=== PATIENT | male | born 1965 | race Caucasian/White ===

== ENCOUNTER 2024-04-26 20:18 | Emergency (ER) | payer MEDICARE, MEDICAID, SELFPAY ==
[2024-04-26] VITALS (8 sets, daily range): BP systolic 134–158; BP diastolic 73–94; PULSE 61–89; RESP 14–99; TEMP 37.7; O2SAT 96–99; BMI 27.1; BMI 25.0
--- NOTE | 2024-04-26 21:10 | XR_ITS ---
Examination: CT brain head without contrast. 2-D sagittal coronal reconstructions Date and time of exam:April 26, 2024 2115 hrs. Indications: Stroke alert, onset focal neurologic deficit today, history large infarct left posterior temporal occipital posterior left parietal lobe on April 08, 2021 CTDI: vol (mGy):55.7 DLP: (mGycm):1202 Technique: Multiple CT axial sections of the brain have been obtained, 5 mm slice thickness. Contrast has not been administered. 2-D sagittal, coronal reconstructions have been obtained Low dose protocols were performed. One or more of the following dose reduction techniques were used; automated exposure control, adjustment of the mA and/or KV according to patient size, use of iterative reconstruction technique. Findings: No significant ventricular enlargement. Large area encephalomalacia posterior left parietal left occipital lobe with ipsilateral ventricular dilatation Acute appearing hemorrhage in the right basal ganglia, 13 x 6 mm with surrounding mild edema Cranial vault intact Fourth ventricle midline Impression: Findings most consistent with 13 x 6 mm acute hemorrhagic infarct in the right basal ganglia
--- NOTE | 2024-04-26 21:10 | XR_ITS ---
Examination: CTA carotids with intravenous contrast CTA brain, head with intravenous contrast. 2-D sagittal, coronal reconstructions. 3-D reconstructions. Exam date and time: April 26, 2024 2119 hrs. Indications: Stroke alert, onset focal neurologic deficit today altered mental status CTDI: vol (mGy) 41.36 DLP: (mGycm) 495 Technique: Multiple CTA axial brain, head carotid images post intravenous contrast injection 75 cc, [id number]. 2-D sagittal, coronal reconstructions. 3-D reconstructions, 3-D post processing including vascular maximum intensity projection images. Low dose protocols were performed. One or more of the following dose reduction techniques were used; automated exposure control, adjustment of the mA and/or KV according to patient size, use of iterative reconstruction technique. 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
--- NOTE | 2024-04-26 21:12 | PC.NURSE ---
stroke consult Case #[id number]
--- NOTE | 2024-04-26 21:13 | EDNOTE_ITS ---
ED General RME/HPI General Chief complaint: Altered Mental Status Stated complaint: AMS Time Seen by Provider: 04/26/24 21:10 Arrival date/time: 04/26/24 20:18 RME / HPI RME / HPI narrative: 58-year-old male patient with significant history of hypertension, CVA in the past, was brought in by EMS for altered mental status. 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 On my initial evaluation patient is none verbal. He was able to involuntarily move the right upper and lower extremity however the left upper and lower extremity are moving less.. Information was taken from her sister who knows the patient well. The sister told me that patient is not having any motor deficit however patient had sometimes having trouble expressing words after the stroke last 2020. Currently patient is GCS 13 Related Data Previous Rx's ?Medication ?Instructions ?Recorded atorvastatin 40 mg tablet 80 mg (2 x 40 mg) PO QPM 1 day #2 04/08/21 tabs Allergies Allergy/AdvReac Type Severity Reaction Status Date / Time No Known Allergies Allergy Unverified 03/28/21 16:44 Review of Systems Review of Systems ROS Unobtainable: unobtainable due to mental status and unobtainable due to medical condition ED Exam Narrative Physical exam: VITAL SIGNS: Reviewed. GENERAL APPEARANCE: Obtunded, nonverbal not following commands, no acute distress, HEAD AND FACE: Non-traumatic. ENT: PERRL, right gaze deviation, pink conjunctivitis, eyelid no trauma, NECK: Supple, nontender, no nuchal rigidity. CHEST: No tenderness, no crepitus, no paradoxical movement, no retractions. LUNGS: Clear, well ventilated, symmetric, no rales, no wheezing, no ronchi, no stridor, good breath sounds bilaterally. HEART: Regular rate, regular rhythm, no murmur, no gallops. ABDOMEN: Soft, positive bowel sounds, nondistended, no guarding, nontender, no rebound, no masses, RECTAL: Deferred. GENITAL: Deferred. NEUROLOGICAL: Involuntary gross motor movement right upper and lower extremity., Minimal involuntary movement of the left upper and lower extremity MUSCULOSKELETAL: low back nontender, full range of motion. SKIN: Color pink, dry, no rash, no lacerations, no abrasions, no contusions. LYMPHATICS: Deferred. Course Quality Measures none Orders Category Date Time Status Bedside Blood Glucose NOW Care 04/26/24 21:10 Completed Pocket Maker NOW Care 04/26/24 21:10 Completed Continuous Pulse Oximetry NOW Care 04/26/24 21:10 Completed EKG (ED ONLY) *Do not use* NOW Care 04/26/24 21:10 Completed In and Out Catheter NEEDED Care 04/26/24 21:10 Completed Insert IV NOW Care 04/26/24 21:10 Completed NIH Stroke Scale now Care 04/26/24 21:10 Completed NPO NOW Care 04/26/24 21:10 Completed Nurse Swallow Screen x1 Care 04/26/24 21:10 Completed Consult to Neurology / Tele-Neurology Routine Cons 04/26/24 21:[address] angio stroke protocol Stat Exams 04/26/24 21:[address] stroke protocol Stat Exams 04/26/24 21:10 Completed EKG (ED Only) Stat Exams 04/26/24 21:10 Ordered Alcohol, Blood Medical Stat Lab 04/26/24 21:46 Completed CBC Stat Lab 04/26/24 21:46 Completed Comprehensive Metabolic Panel Stat Lab 04/26/24 21:46 Completed Drug Screen,Urine Stat Lab 04/26/24 21:54 Completed Magnesium Stat Lab 04/26/24 21:46 Completed Partial Thromboplastin Time Stat Lab 04/26/24 21:46 Completed Prothrombin Time with INR Stat Lab 04/26/24 21:46 Completed Troponin I Stat Lab 04/26/24 21:46 Completed Urinalysis Stat Lab 04/26/24 21:48 Completed Urine Culture Stat Lab 04/26/24 21:54 Received Ondansetron Inj [Zofran Inj] Med 04/26/24 21:10 Discontinued 4 mg IV Q4HR PRN Oxygen Delivery NOW RT 04/26/24 21:10 Completed Vital Signs Vital signs: Vital Signs Temperature 99.8 F 04/26/24 20:30 Pulse Rate 63 04/26/24 20:30 Respiratory Rate 19 04/26/24 20:30 Blood Pressure 158/94 H 04/26/24 20:30 Pulse Oximetry (%) 96 04/26/24 20:30 Oxygen Delivery Method Room Air 04/26/24 20:30 [facility] Patient data External records reviewed:: None Clinical information provided by:: family Social determinants that could affect healthcare access:: none Patient has the following chronic illnesses:: History of CVA, hypertension How is presenting disease/condition affected by chronic disease/condition?: e xacerbated by Evaluation data The following diagnostics were reviewed and interpreted by me:: lab results and radiology exam(s) Lab and/or radiology exams considered but not ordered:: None Interpretation Summary: Pending results Medications Medications considered but not ordered:: None Medication administrations:: Medication Administration History Discontinued Medications Ondansetron HCl (Ondansetron Inj 2 Mg/Ml Inj 2 Ml) 4 mg IV Q4HR PRN PRN Reason: NAUSEA OR VOMITING Stop: 05/26/24 21:09 Zofran Consultations Consultation(s) initiated? (list below): No Diagnosis Differential Diagnosis ED Complaint MDM: CVA, hemorrhagic stroke, altered mental status Most likely diagnosis given after review of the tests above:: Intracranial bleed Admission Indicated Admission indicated?: not indicated (Patient will be transferred for intracranial bleed) Explain why admission is indicated or not indicated:: Transferred Admission Request Was there a request for admission?: No Disposition Plan Disposition Plan: Transfer Medical Decision Making [facility] Narrative MDM Narrative: 58-year-old male patient with significant history of hypertension, CVA in the past, was brought in by EMS for altered mental status. 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 On my initial evaluation patient is none verbal. He was able to involuntarily move the right upper and lower extremity however the left upper and lower extremity are moving less.. Information was taken from her sister who knows the patient well. The sister told me that patient is not having any motor deficit however patient had sometimes having trouble expressing words after the stroke last 2020. Stroke alert was initiated at 0 Spoke with teleneurologist who recommends transfer for acute hemorrhagic stroke. Care transferred to Dr. Quezada 11:30 PM for final disposition. Differential Diagnosis Differential Diagnosis: CVA, hemorrhagic stroke, altered mental status Lab Data 04/26/24 21:46 04/26/24 21:46 Labs: Lab Results 04/26/24 04/26/24 04/26/24 Range/Units 21:46 21:48 21:54 WBC 11.1 H (3.8-10.6) Thou/mm3 RBC 4.92 (4.50-5.90) Miln/mm3 Hgb 16.3 H (13.5-16.0) g/dL Hct 46.8 (41.0-53.0) % MCV 95 (80-100) fL MCH 33.1 (25.0-35.0) pg MCHC 34.8 (31.0-37.0) g/dl RDW Std Deviation 42.5 (35.1-43.9) fL Plt Count 238 (140-440) Thou/mm3 Neut % (Auto) 88 H (37-80) % Lymph % (Auto) 6 L (10-50) % Antelope % (Auto) 5 (0-12) % Eos % (Auto) 0 (0-10) % Baso % (Auto) 0 (0-2.5) % Neut # (Auto) 9.7 H (1.8-7.7) Thou/mm3 Lymph # (Auto) 0.7 L (1.0-4.8) Thou/mm3 Antelope # (Auto) 0.6 (0.0-0.8) Thou/mm3 Eos # (Auto) 0.0 (0.0-0.5) Thou/mm3 Baso # (Auto) 0.0 (0.0-0.2) Thou/mm3 Immature Gran # (Auto) 0.03 H (0.00-0.00) Thou/mm3 Absolute Nucleated RBC 0.00 (0.00-0.00) Thou/mm3 Immature Gran % 0 (0-0) % Nucleated RBC % 0 (0) /100 WBC PT 11.8 (9.0-12.2) Seconds INR 1.1 (0.9-1.3) APTT 25.9 (22.0-36.0) Seconds Sodium 138 (136-145) mMol/L Potassium 4.7 (3.4-5.1) mMol/L Chloride 105 (98-107) mMol/L Carbon Dioxide 22.2 (20.0-31.0) mMol/L Anion Gap 11 (7-16) BUN 11 (9-23) mg/dL Creatinine 0.8 (0.6-1.3) mg/dL Estim Creat Clear Calc 115.1 (>60) mL/min eGFR > 60 (60 - ) See Note BUN/Creatinine Ratio 14 (12-20) Ratio Glucose 108 H (74-106) mg/dL Calculated Osmolality 276 (275-295) Calcium 9.7 (8.3-10.6) mg/dL Corrected Calcium 9.7 (8.5-10.1) mg/dL Magnesium 1.8 (1.6-2.6) mg/dL Total Bilirubin 1.6 H (0.3-1.2) mg/dL AST 30 (0-34) U/L ALT 25 (10-49) U/L Alkaline Phosphatase 67 (46-116) U/L Troponin I < 0.020 (0.0-0.045) ng/mL Total Protein 7.6 (5.7-8.2) gm/dL Albumin 4.8 (3.5-5.0) gm/dL Globulin 2.8 (2.3-3.5) gm/dL Albumin/Globulin Ratio 1.7 (1.2-2.2) Ur Collection Type Clean Catch Urine Color Yellow (Lt Yel-Yel) Urine Clarity Clear (Clear/Hazy) Urine pH 5.5 (5.0-7.0) Ur Specific Burton 1.036 H (1.001-1.035) Urine Protein Trace (Neg - Trace) Urine Glucose (UA) Negative (Negative) Urine Ketones 1+ A (Negative) Urine Blood Trace (Negative) Urine Nitrite Negative (Negative) Urine Bilirubin Negative (Negative) Urine Urobilinogen (Auto) Negative (0.0-1.0) mg/dL Ur Leukocyte Esterase Negative (Negative) Urine RBC 2 (0-3) /hpf Urine WBC 2 (0-5) /hpf Ur Squamous Epith Cells 0 (0-5) /hpf Urine Bacteria None (None) Urine Opiates Screen Negative (Negative) Urine Fentanyl Screen Negative (Negative) Ur Barbiturates Screen Negative (Negative) U Amphetamin/Meth Scrn Negative (Negative) U Benzodiazepines Scrn Negative (Negative) U Cocaine Metab Screen Negative (Negative) U Marijuana (THC) Screen Positive A (Negative) Ethyl Alcohol < 3.0 (0-10.0) mg/dL Discharge Plan Plan Patient Disposition: [facility] Care [facility] Facility Pt Being Transferred to: [facility] Service Needed for Transfer: Neurology Patient condition on transfer: Stable Prescriptions/Referrals Prescriptions/Med Rec: No Action atorvastatin 40 mg Tablet 80 mg PO QPM 1 Days Qty: 2 0RF Referrals: No Primary/Family,Physician [Primary Care Provider] - In 1 week Problem List Clinical Impression: Basal ganglia hemorrhage Patient/Caregiver Discharge Instructions Print Language: Azerbaijani Stand Alone Forms: [facility] Award Info., Patient Portal Info Letter
--- NOTE | 2024-04-26 21:49 | PD.TNEURO ---
Tele Neuro Consultation Consultation Date 04/26/24 Most Recent Vital Signs Last Vital Signs Temp 99.8 F 04/26/24 20:30 Pulse 63 04/26/24 20:30 Resp 19 04/26/24 20:30 BP 158/94 H 04/26/24 20:30 Pulse Ox 96 04/26/24 20:30 O2 Del Method Room Air 04/26/24 20:30 Consultation Narrative [facility] Patient Name:???jasmyn henao Date of :???1965 Identification Number:??? Date of Service:???04/26/2024 21:12:33 Diagnosis:?G93.41 - Encephalopathy Metabolic ?R40.0 - Somnolence ?M62.81 - Generalized Muscle Weakness Impression: altered mental status with right gaze deviation; small right lentiform nucleus bleed that is well circumscribed and somewhat odd appearing; Plan: keep BP less than 140/90s but avoid hypotension given chronic left ICA occlusion. Will need dawjm-jtxkpecjr-qfwmjdwrvk workup, including U/A, UCx, BCx, UDS, ETOH level. Will need an MRI brain WITH AND WITHOUT CONTRAST when able, echo, continue to monitor on telemetry, labs for risk factor stratification (lipid panel, HbA1c, TSH with free T4), PT/OT/speech eval. seizure precautions including NO DRIVING for state minimum time frame with reporting to DMV as per state mandate. CIWA protocol. may benefit from high dose IV thiamine given unclear alcohol use history. If mental status does not return to baseline or if mental status fluctuates, would recommend EEG. All questions answered to the best of my ability. Plan discussed with ED provider, who is in agreement with plan. Recommendation: Laboratory Studies:? INR/PT ? aPTT? CBC Medications:? Hold?antiplatelet?therapy/NSAIDS/Anticoagulation Nursing Recommendations: ? Telemetry, IV Fluids?Avoid dextrose containing fluids, Maintain euglycemia ? Head of bed 30 degrees ? Neuro checks q1-2?hrs?during ICU stay ? keep BP less than 140/90's with goal of 130/80s Consultations: ? Recommend Speech therapy if failed dysphagia screen ? Physical therapy/Occupational therapy DVT Prophylaxis: ? SCDs Disposition: ? Neurology will Follow Additional Recommendation: MRI brain WITH AND WITHOUT CONTRAST Metrics: Last Known Well: 04/26/2024 07:30:00 Dispatch Time: 04/26/2024 21:12:33 Arrival Time: 04/26/2024 20:18:00 Initial Response Time: 04/26/2024 21:13:49Symptoms: altered mental status, found down. Initial patient interaction: 04/26/2024 21:30:00 NIHSS Assessment Completed: 04/26/2024 21:35:34Patient is not a candidate for Thrombolytic. Thrombolytic Medical Decision: 04/26/2024 21:33:19Patient was not deemed candidate for Thrombolytic because of following reasons: LKW outside 4.5 hr window. . Current intracranial hemorrhage . Imaging was personally reviewed. CTH shows a large area of encephalomalacia in the left nsrmswuw-vsvjkcke-xyqiicawh lobe and a hyperdensity in the right lentiform nucleus, concern for hemorrhage. CTA head/neck shows scattered atherosclerotic plaques with chronic occlusion of the cervical left ICA and reconstitutes at the ICA terminus. This was seen in 2020. Primary Provider Notified of Diagnostic Impression and Management Plan on: 04/26/2024 21:41:22 History of Present Illness:Patient is a 58 year old Male. Patient was brought by EMS for symptoms of altered mental status, found down. 58 yo man with ah history of prior left hemispheric ischemic stroke (djqrnrvz-vitpxvyq-gxedjuvhm infarcts) in the setting of left ICA occlusion with some residual cognitive/speech deficits but no weakness, hypertension, hyperlipidemia, coronary artery disease s/p stent (2016), left ventricular thrombus, who presents via EMS after being found down with altered mental status and ?right arm weakness. sister is present at bedside and provide history of present illness but she is estranged and hasn't spoken or seen him in 1.5 years so history is limited. LKW 0730 am. he was supposed to grape picker his daughter after school but never showed up. when daughter got a ride home, she found him down on the ground and confused appearing. he was unable to ambulate. of note, there was drug paraphernalia near him with a pipe near bed with light. he has a history of alcohol use disorder (unclear if in remission). ? Past Medical History: ?Hypertension ?Hyperlipidemia ?Coronary Artery Disease ?Stroke unable to obtain due to:?? Patient Is Obtunded/ Comatose Medications: Anticoagulant use:??Unknown Antiplatelet use:?Unknown Reviewed EMR for current medications Allergies:? Reviewed Allergies Unable To Obtain Due To:?Patient Is Obtunded/ Comatose Social History: Smoking: Yes Unable To Obtain Due To Patient Status :?Patient Is Obtunded/ Comatose Family History: Family History Cannot Be Obtained Because:Patient Is Obtunded/ Comatose ROS :?ROS Cannot Be Obtained Because:? Patient Is Obtunded/ Comatose Past Surgical History: Past Surgical History Cannot Be Obtained Because: Patient Is Obtunded/ Comatose There Is No Surgical History Contributory To Today?s Visit There Is Surgical History of:? cardiac stent to the left anterior descending [id number] ? Examination: BP(158/94),?Pulse(63),?Blood Glucose(137) 1A: Level of Consciousness - Requires repeated stimulation to arouse?+ 2 1B: Ask Month and Age - Could Not Answer Either Question Correctly?+ 2 1C: Blink Eyes & Squeeze Hands - Performs 0 Tasks?+ 2 2: Test Horizontal Extraocular Movements - Forced Gaze Palsy: Cannot Be Overcome?+ 2 3: Test Visual Dyson - Bilateral Hemianopia?+ 3 4: Test Facial Palsy (Use Grimace if Obtunded) - Normal symmetry?+ 0 5A: Test Left Arm Motor Drift - No Effort Against [place]?+ 3 5B: Test Right Arm Motor Drift - No Effort Against [place]?+ 3 6A: Test Left Leg Motor Drift - No Effort Against [place]?+ 3 6B: Test Right Leg Motor Drift - No Effort Against [place]?+ 3 7: Test Limb Ataxia (FNF/Heel-Robledo) - Does Not Understand?+ 0 8: Test Sensation - Mild-Moderate Loss: Can Sense Being Touched?+ 1 9: Test Language/Aphasia - Severe Aphasia: Fragmentary Expression, Inference Needed, Cannot Identify Materials?+ 2 10: Test Dysarthria - Mute/Anarthric?+ 2 11: Test Extinction/Inattention - No abnormality?+ 0 NIHSS Score:?28 ICH Score: 1 NIHSS Text :?obtunded. unable to answer orientation questions or follow commands. actively resists eye opening. right gaze deviation. no blink to threat bilaterally. moving all four extremities equally and spontaneously. grimaces and says ow with flexion in response to proximal noxious stimulation in all four extremities. GCS 11 (E3 V4 M4). David Coma Score:5-12 (+1) Age >= 80:No (0) ICH volume >= 30mL:No (0) Intraventricular hemorrhage:No (0) Infratentorial origin of hemorrhage:No (0) Pre-Morbid Modified England Scale:2 Points = Slight disability; unable to carry out all previous activities, but able to look after own affairs without assistance This consult was conducted in real time using interactive audio and video technology. Patient was informed of the technology being used for this visit and agreed to proceed. Patient located in hospital and provider located at home/office setting. Due to the immediate potential for life-threatening deterioration due to underlying acute neurologic illness, I spent 36 minutes providing critical care. This time includes time for face to face visit via telemedicine, review of medical records, imaging studies and discussion of findings with providers, the patient and/or family. Dr Geoffrey Kruger [facility] For Inpatient follow-up with [facility] physician please call [facility] at . As we are not an outpatient service for any post hospital discharge needs please contact the hospital for assistance. If you have any questions for the [facility] physicians or need to reconsult for clinical or diagnostic changes please contact us via [facility] at .
[2024-04-26 22:05] LABS: Basophils % (Auto) 0 % (0-2.5); Eosinophils % (Auto) 0 % (0-10); Hematocrit 46.8 % (41.0-53.0); Hemoglobin 16.3 g/dL (13.5-16.0); Immature Granulocytes % (Auto) 0 % (0-0); Immature Granulocytes Auto 0.03 Thou/mm3 (0.00-0.00); Lymphocytes # (Auto) 0.7 Thou/mm3 (1.0-4.8); Lymphocytes % (Auto) 6 % (10-50); Mean Corpuscular HGB Conc 34.8 g/dl (31.0-37.0); Mean Corpuscular Hemoglobin 33.1 pg (25.0-35.0); Mean Corpuscular Volume 95 fL (80-100); Monocytes # (Auto) 0.6 Thou/mm3 (0.0-0.8); Monocytes % (Auto) 5 % (0-12); Neutrophils # (Auto) 9.7 Thou/mm3 (1.8-7.7); Neutrophils % (Auto) 88 % (37-80); Nucleated Red Blood Cell % 0 /100 WBC (0); Platelet Count 238 Thou/mm3 (140-440); RDW Standard Deviation 42.5 fL (35.1-43.9); Red Blood Count 4.92 Miln/mm3 (4.50-5.90); White Blood Count 11.1 Thou/mm3 (3.8-10.6)
[2024-04-26 22:06] LABS: Collection Type, Urine Clean Catch; Squamous Epithelial Cell,Urine 0 /hpf (0-5)
[2024-04-26 22:12] LABS: Alanine Aminotransferase 25 U/L (10-49); Albumin, Serum 4.8 gm/dL (3.5-5.0); Albumin/Globulin Ratio 1.7 (1.2-2.2); Alkaline Phosphatase 67 U/L (46-116); Anion Gap 11 (7-16); Aspartate Amino Transferase 30 U/L (0-34); BUN/Creatinine Ratio 14 Ratio (12-20); Bilirubin,Total 1.6 mg/dL (0.3-1.2); Blood Urea Nitrogen 11 mg/dL (9-23); Calcium 9.7 mg/dL (8.3-10.6); Calcium (Corrected) 9.7 mg/dL (8.5-10.1); Carbon Dioxide 22.2 mMol/L (20.0-31.0); Chloride 105 mMol/L (98-107); Creatinine (Component) 0.8 mg/dL (0.6-1.3); Estimated Creatinine Clearance 115.1 mL/min (>60); Globulin 2.8 gm/dL (2.3-3.5); Glucose 108 mg/dL (74-106); Magnesium 1.8 mg/dL (1.6-2.6); Osmolality,Calculated 276 (275-295); Potassium 4.7 mMol/L (3.4-5.1); Sodium 138 mMol/L (136-145); Total Protein 7.6 gm/dL (5.7-8.2); Troponin I < 0.020 ng/mL (0.0-0.045); eGFR > 60 See Note
[2024-04-26 22:14] LABS: Bilirubin,Urine Negative (Negative); Blood,Urine Trace (Negative); Clarity,Urine Clear (Clear/Hazy); Color,Urine Yellow (Lt Yel-Yel); Glucose, Urine Negative (Negative); Ketones,Urine 1+ (Negative); Leukocyte Esterase,Urine Negative (Negative); Nitrite,Urine Negative (Negative); PH,Urine 5.5 (5.0-7.0); Protein,Urine Trace (Neg - Trace); RBC,Urine 2 /hpf (0-3); Specific Gravity,Urine 1.036 (1.001-1.035); Urobilinogen,Urine Negative mg/dL (0.0-1.0); WBC,Urine 2 /hpf (0-5)
[2024-04-26 22:14] LABS: INR 1.1 (0.9-1.3); Partial Thromboplastin Time 25.9 Seconds (22.0-36.0); Prothrombin Time 11.8 Seconds (9.0-12.2)
[2024-04-26 22:31] LABS: Amphetamine/Methamp Scrn,U Negative (Negative); Barbiturate Screen,Urine Negative (Negative); Benzodiazepines Screen,Urine Negative (Negative); Benzoylecgonine Screen, Ur Negative (Negative); Fentanyl Screen,Urine Negative (Negative); Opiate Screen,Urine Negative (Negative); THC Screen,Urine Positive (Negative)
[2024-04-26 22:31] LABS: Alcohol, Blood Medical < 3.0 mg/dL (0-10.0)
--- NOTE | 2024-04-26 23:04 | PC.NURSE ---
[facility] FAXED PAPERWORK FOR POSSIBLE TRANSFER
--- NOTE | 2024-04-26 23:27 | PC.NURSE ---
[facility] FAXED PAPERWORK AND IMAGES PUSHED FOR POSSIBLE TRANSFER
[2024-04-27] VITALS: BP 146/97; PULSE 85; RESP 15; O2SAT 98
--- NOTE | 2024-04-27 00:03 | PD.EDADDENDU ---
Emergency Room Addendum <Pam Linn - Last Filed: 04/27/24 01:23> Addendum Narrative: 2300: Care assumed from Marsha Jarrett NP. Past medical, surgical, social and family history reviewed. Vitals and home medications reviewed. Results and treatment plan discussed. I will assume the care of the patient at this time and will follow the patient, pending transfer. Please refer to the emergency department record for history and examination from initial visit. The patient with a blood pressure of 135/73. Pulse of 65. Respirations 27 without accessory muscle use, 98% on room air. Repeat temp is 99. PE: Patient lying in the bed in a gown, intermittent yawning. GCS 13 (E: 3 V: 5 (only states his name is Mode ) M: 5 Response to stimuli. He opens his eyes and appears to be looking towards his right. When I stand on his left he continues to look at his right. Moving bilateral LE spontaneously and appears equal. Will start to swing both arms. Cranio-facial features are symmetric, PERRL, eyes deviated to the right when I on standing on the left side. Unable to test sensation. Unable to test cerebellar Patient has periods of moving his left upper extremity with then. Of not wanting to move. 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 1-right basal ganglia bleed 2_? Possible nonfocal seizure secondary to the basal ganglia bleed. Keppra dose is given IV. 0005: Spoke with [facility]'s transfer center. Awaiting callback on whether or not they accept the patient for transfer. Review of the nursing notes report that the patient commonly will sleep on the floor. Per EMS the patient was found sleeping next to his bed with a pillow and blanket by his side. 0108: Spoke with Dr. Carlisle from [facility] transfer center. States the patient does not need IR intervention/neurosurgical transfer at this time. Needs stroke follow-up. 0115: Spoke with Dr. Dennis from neurology at [facility] and accepts the patient for ED-ED transfer. Critical Care Time: 45 minutes The high probability of sudden, clinically significant deterioration in the patient?s condition required the highest level of my preparedness to intervene urgently. The services I provided to this patient were to treat and/or prevent clinically significant deterioration. Services included the following: chart data review, reviewing nursing notes and/or old charts, documentation time, interventional sale consultant collaboration regarding findings and treatment options, medication orders and management, direct patient care, vital sign assessments and ordering, interpreting and reviewing diagnostic studies and lab tests. Aggregate critical care time includes only time during which I was engaged in work directly related to the patient?s care, as described above, whether at bedside or elsewhere in the Emergency Department. It did not include time spent performing other reported procedures or the services of residents, students, nurses or physician assistants. <Cyndy Quezada MD - Last Filed: 04/27/24 01:59> Addendum Narrative: 2300: Care assumed from Marsha Jarrett NP. Past medical, surgical, social and family history reviewed. Vitals and home medications reviewed. Results and treatment plan discussed. I will assume the care of the patient at this time and will follow the patient. The patient with a blood pressure of 135/73. Pulse of 65. Respirations 27 without accessory muscle use, 98% on room air. Repeat temp is 99. PE: Patient lying in the bed in a gown, intermittent yawning. GCS 13 (E: 3 V: 5 (only states his name is Mode ) M: 5 Response to stimuli. He opens his eyes and appears to be looking towards his right. When I stand on his left he continues to look at his right. Moving bilateral LE spontaneously and appears equal. Will start to swing both arms. Cranio-facial features are symmetric, PERRL, eyes deviated to the right when I on standing on the left side. Unable to test sensation. Unable to test cerebellar Patient has periods of moving his left upper extremity with then. Of not wanting to move. 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 1-right basal ganglia bleed 2_? Possible nonfocal seizure secondary to the basal ganglia bleed. Keppra dose is given IV. 0005: [facility] transfer center called and pending callback. Review of the nursing notes report that the patient commonly will sleep on the floor. Per EMS the patient was found sleeping next to his bed with a pillow and blanket by his side. Please refer to the emergency department record for history and examination from initial visit. Spoke with [facility]'s transfer center. Awaiting callback on whether or not they accept the patient for transfer. 04/27/24 12:07 am Pam Pires
[2024-04-27 00:22] VITALS: BP 139/84; PULSE 89; RESP 18; TEMP 37.5; O2SAT 96
--- NOTE | 2024-04-27 01:30 | PC.NURSE ---
[facility] ACCEPTED PATIENT, ER TO ER DR PINA [phone]
[2024-04-27 01:43] VITALS: BP 131/88; PULSE 88; RESP 16; O2SAT 99
[2024-04-27 02:12] VITALS: BP 146/76; PULSE 80; RESP 17; O2SAT 98
--- NOTE | 2024-04-27 02:33 | PC.NURSE ---
REPORT CALLED TO ALBIN GRIFFITHS AT [facility]. ALL QUESTIONS ASKED AND ANSWERED.
== END 2024-04-27 02:48 | disposition short-term general hospital (02) ==
PROVIDERS: Nurse Practitioner Family; Emergency Provider Emergency Medicine
DX: I61.0 Nontraumatic intracerebral hemorrhage in hemisphere, subcortical (principal); I10 Essential (primary) hypertension; E78.5 Hyperlipidemia, unspecified; I25.10 Atherosclerotic heart disease of native coronary artery without angina pectoris
CPT/HCPCS: 36415; 70450; 70496; 70498; 80053; 80307; 80320; 81001; 83735; 84484; 85025; 85610; 85730; 87086; 93005; 99291; A4649; Q9967; G0480

== ENCOUNTER 2024-05-27 13:52 | Inpatient (IN) | payer MEDICARE, MEDICAID, SELFPAY ==
[2024-05-27 13:59] VITALS: BP 137/98; PULSE 80; RESP 19; TEMP 36.8; O2SAT 97
[2024-05-27 14:50] VITALS: PULSE 84; O2SAT 99
--- NOTE | 2024-05-27 14:58 | EDNOTE_ITS ---
Altered Mental Status RME/HPI General Chief Complaint: Altered Mental Status Stated Complaint: AMS Time Seen by Provider: 05/27/24 14:50 Arrival date/time: 05/27/24 13:52 RME / HPI RME / HPI narrative: 58 year old male with history of CVA in 2020 and on 04/26/2024 was evaluated here diagnosed with basal ganglia hemorrhage and transferred to [facility] (discharged 3 days ago) presents to the ED BIBA from SNF for evaluation of altered mental status. Per mother, since arriving to [facility] 3 days ago the patient is altered however worse today. States today patient repetitively asked about peanut butter. Also reported patient was cursing, using profanities, and not making any sense. Patients mother additionally reported since arriving to the senior care, the patient has had two falls out of bed, last fall was 2 days ago. No fevers or other illness reported. No vomiting, diarrhea, or urinary complaints. Related Data Previous Rx's ?Medication ?Instructions ?Recorded atorvastatin 40 mg tablet 80 mg (2 x 40 mg) PO QPM 1 day #2 04/08/21 tabs Allergies Allergy/AdvReac Type Severity Reaction Status Date / Time No Known Allergies Allergy Unverified 03/28/21 16:44 Review of Systems Review of Systems ROS Unobtainable: unobtainable due to mental status Past Medical History Past Medical History NEUROLOGIC: Positive Cerebrovascular Accident (CVA at present) CARDIAC: Positive Cardiac Disorders ([place]) and Hypercholesterolemia Surgical History SURGICAL: Positive Coronary Stent Social History SMOKING STATUS: Never smoker SECOND HAND EXPOSURE: No ED Exam Narrative Physical exam: GENERAL APPEARANCE: Well hydrated, well nourished, in no acute distress. VITALS: All vitals were reviewed and the pulse ox is 97% on room air which is normal according to my interpretation. HEENT: Normocephalic, atramatic, EOMI, EACs are patent. There is no bulge or retraction. Throat without erythema or exudate. Moist oromucosa. No jaundice NECK: Supple, no JVD or bruits. CARDIOVASCULAR: Heart regular without S3-S4 or murmur. No rubs or gallops. LUNGS/CHEST: Clear to auscultation bilaterally. No rales, rhonchi, or wheezing. Normal inspection. ABDOMEN: Soft, nontender, with normal bowel sounds. No pulsatile masses. No rebound, rigidity, or guarding. No incarcerated hernia. Normal inspection and palpation. EXTREMITIES: No edema, clubbing, or cyanosis. Intact CSM SKIN: Warm and dry without rashes. Normal inspection. MUSCULOSKELETAL: No gross deformity, full ROM all extremities NEURO: Alert, dysphasia noted. Noticeable weakness in the left leg, both arms equal strength. Cranial nerves II through XII grossly intact. PSYCHIATRIC: Normal mood and affect. No psychosis Course Quality Measures none Orders Category Date Time Status EKG (ED ONLY) *Do not use* NOW Care 05/27/24 15:22 Completed Saline [Insert IV] NOW Care 05/27/24 15:[address] head/brain wo con Stat Exams 05/27/24 15:22 Completed EKG (ED Only) Stat Exams 05/27/24 15:22 Draft CBC Stat Lab 05/27/24 15:32 Completed CMP [Comprehensive Metabolic Panel] Stat Lab 05/27/24 15:32 Completed Drug Screen,Urine Stat Lab 05/27/24 15:24 Ordered PT [Prothrombin Time with INR] Stat Lab 05/27/24 15:32 Completed PTT [Partial Thromboplastin Time] Stat Lab 05/27/24 15:32 Completed Vital Signs Vital signs: Vital Signs Temperature 98.3 F 05/27/24 13:59 Pulse Rate 80 05/27/24 13:59 Respiratory Rate 19 05/27/24 13:59 Blood Pressure 137/98 H 05/27/24 13:59 Pulse Oximetry (%) 97 05/27/24 13:59 Oxygen Delivery Method Room Air 05/27/24 13:59 Altered Mental Status MDM Narrative MDM Narrative:: ILola, sabrina scribing for and in the presence of Dr. Rodriguez. CBC unremarkable. CMP negative. PT PTT negative. CT brain please see the report from Dr. Carlton Jackson, Radiologist on-call Twelve-lead EKG 1555 interpreted by me: Normal sinus rhythm with a heart rate of 72. Normal axis. No ST elevation or depression. No PVC. No STEMI. Regular rate and rhythm. 5:27 PM, I spoke to Dr. Wilhelm, neurosurgeon from [facility]. I discussed with him about the physical finding and also the CT report findings. He is very adamant that the patient does not need neurosurgical intervention. Therefore he rejected my request for transfer. I specifically asked him about mass effect compressing the right lateral ventricle. , He said that that does not need surgery. He recommended that we contacted neurologist. 5:40 PM, I spoke to and discussed with Dr. ednnis, neurologist on-call. And she said she will come to the emergency department to evaluate the patient. 6 PM, pending Dr Dennis evaluation, the patient is stable and is now signed out to Dr. Bower Critical care time is approximately 35 minutes excluding any procedure. The high probability of sudden, clinically significant deterioration in the patient?s condition required the highest level of my preparedness to intervene urgently. The services I provided to this patient were to treat and/or prevent clinically significant deterioration. Services included the following: chart data review, reviewing nursing notes and/or old charts, documentation time, product support consultant collaboration regarding findings and treatment options, medication orders and management, direct patient care, vital sign assessments and ordering, interpreting and reviewing diagnostic studies and lab tests. Aggregate critical care time includes only time during which I was engaged in work directly related to the patient?s care, as described above, whether at bedside or elsewhere in the Emergency Department. It did not include time spent performing other reported procedures or the services of residents, students, nurses or physician assistants. Patient data External records reviewed:: [facility] previous records, EMS form and Snf records (I reviewed txfer packet from [facility] ) Clinical information provided by:: EMS and family (Mother provides history ) Social determinants that could affect healthcare access:: housing ([place] resident ) Patient has the following chronic illnesses:: CVA in 2020 and on 04/26/2024 was evaluated here diagnosed with basal ganglia hemorrhage and transferred to [facility] (discharged 3 days ago) How is presenting disease/condition affected by chronic disease/condition?: exacerbated by Evaluation data The following diagnostics were reviewed and interpreted by me:: lab results and radiology exam(s) Lab and/or radiology exams considered but not ordered:: None Interpretation Summary: Ordering Physician: Rajiv Rodriguez MD Date of Service: 05/27/24 Procedure(s): CT head/brain wo con Accession Number(s): [id number] cc: Carlton Jackson MD; Rajiv Rodriguez MD~ Examination: CT brain head without contrast. 2-D sagittal coronal reconstructions Date and time of exam:May 27, 2024 1538 hours Comparison April 26, 2024 INDICATIONS: Confusion today, history recent stroke with hemorrhage, 13 x 6 mm acute hemorrhage in the right basal ganglia the brain scan April 26, 2024 CTDI: vol (mGy):53.5 DLP: (mGycm):1195 Technique: Multiple CT axial sections of the brain have been obtained, 5 mm slice thickness. Contrast has not been administered. 2-D sagittal, coronal reconstructions have been obtained Low dose protocols were performed. One or more of the following dose reduction techniques were used; automated exposure control, adjustment of the mA and/or KV according to patient size, use of iterative reconstruction technique. Findings: Larger low density area in the right basal ganglia consistent with worsening infarct, with additional mass effect compressing the right lateral ventricle Left lateral ventricular enlargement remains with old infarct left posterior parietal occipital lobe No acute hemorrhage currently Cranial vault intact IMPRESSION: Larger acute subacute infarct in the right basal ganglia Recommend repeat brain MRI MRA without contrast, stroke protocol, follow-up Dictated By: Carlton Jackson MD Signed By: <Electronically signed by Carlton Jackson MD in OV> 05/27/24 1558 Medications / Prescriptions Medications or Prescriptions considered but not ordered:: None Medication administrations:: See above Consultations Consultation(s) initiated? (list below): Yes Consultation #1 (Physician, Specialty, Details): I spoke with neurosurgeon Dr. Wilhelm at [facility] as noted above. Time: 17:20 Consultation #2 (Physician, Specialty, Details): I spoke with our neurologist Dr. Dennis as noted above. Time: 17:28 Diagnosis Most likely diagnosis given after review of the tests above:: Acute and subacute cerebral infarct Admission Indicated Admission indicated?: not indicated Explain why admission is indicated or not indicated:: Patient signed out to Dr. Bower pending call back from neurologist Dr. Dennis. Admission Request Was there a request for admission?: No Disposition Plan Disposition Plan: other (specify) (Signed out to Dr. Bower. ) Discharge Plan Plan Disposition Comment: Stable at signout Prescriptions/Referrals Prescriptions/Med Rec: No Action atorvastatin 40 mg Tablet 80 mg PO QPM 1 Days Qty: 2 0RF Referrals: No Primary/Family,Physician [Primary Care Provider] - In 1 week Problem List Clinical Impression: CVA (cerebral vascular accident) Patient/Caregiver Discharge Instructions Print Language: Belizean
--- NOTE | 2024-05-27 15:00 | PC.NURSE ---
PATIENT CAME IN VIA EMS FROM SNF FOR C/O ALOC X2 DAYS. PT WAS RECENTLY DISCHARGED FROM [facility] 2 DAYS AGO S/P INTRACRANIAL HEMORRHAGE. VS STABLE. BS 159 NOTED BY EMS. PT UNABLE TO GET WORDS OUT APPROPRIATELY. PER MOTHER PT HAD FELL TWICE AT THE FACILITY. REPETITIVE SPEAKING. ABLE TO MOVE ALL EXTREMITIES EQUALLY, VS WNL.
[2024-05-27 15:21] VITALS: BP 133/70; PULSE 78; RESP 14; TEMP 37.1; O2SAT 97
--- NOTE | 2024-05-27 15:22 | EKG_ITS ---
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1965 Requested By: Rajiv Rodriguez Order Number: [id number] Reading MD: Rajiv Rodriguez Measurements Intervals [place] Rate: 72 P: 6 [place]: 163 QRS: 22 QRSD: 86 T: 71 QT: 367 QTc: 404 Interpretive Statements SINUS RHYTHM LOW QRS VOLTAGE IN PRECORDIAL LEADS [QRS DEFLECTION < 1.0 mV IN CHEST LEADS] ANTEROSEPTAL MYOCARDIAL INFARCTION , OF INDETERMINATE AGE [40+ ms Q WAVE IN V1-V4] Compared to ECG 03/31/2021 11:43:00 Low QRS voltage now present Sinus bradycardia no longer present Ventricular premature complex(es) no longer present T-wave abnormality no longer present Possible ischemia no longer present Myocardial infarct finding still present /store/S0/[id number]/ecg/[id number].pdf
--- NOTE | 2024-05-27 15:22 | XR_ITS ---
Examination: CT brain head without contrast. 2-D sagittal coronal reconstructions Date and time of exam:May 27, 2024 1538 hours Comparison April 26, 2024 INDICATIONS: Confusion today, history recent stroke with hemorrhage, 13 x 6 mm acute hemorrhage in the right basal ganglia the brain scan April 26, 2024 CTDI: vol (mGy):53.5 DLP: (mGycm):1195 Technique: Multiple CT axial sections of the brain have been obtained, 5 mm slice thickness. Contrast has not been administered. 2-D sagittal, coronal reconstructions have been obtained Low dose protocols were performed. One or more of the following dose reduction techniques were used; automated exposure control, adjustment of the mA and/or KV according to patient size, use of iterative reconstruction technique. Findings: Larger low density area in the right basal ganglia consistent with worsening infarct, with additional mass effect compressing the right lateral ventricle Left lateral ventricular enlargement remains with old infarct left posterior parietal occipital lobe No acute hemorrhage currently Cranial vault intact IMPRESSION: Larger acute subacute infarct in the right basal ganglia Recommend repeat brain MRI MRA without contrast, stroke protocol, follow-up
[2024-05-27 15:54] LABS: Basophils # (Auto) 0.1 Thou/mm3 (0.0-0.2); Basophils % (Auto) 1 % (0-2.5); Eosinophils # (Auto) 0.1 Thou/mm3 (0.0-0.5); Eosinophils % (Auto) 2 % (0-10); Hematocrit 46.3 % (41.0-53.0); Hemoglobin 16.2 g/dL (13.5-16.0); Immature Granulocytes % (Auto) 0 % (0-0); Immature Granulocytes Auto 0.02 Thou/mm3 (0.00-0.00); Lymphocytes # (Auto) 1.2 Thou/mm3 (1.0-4.8); Lymphocytes % (Auto) 21 % (10-50); Mean Corpuscular Volume 92 fL (80-100); Monocytes # (Auto) 0.5 Thou/mm3 (0.0-0.8); Monocytes % (Auto) 9 % (0-12); Neutrophils % (Auto) 68 % (37-80); Nucleated Red Blood Cell % 0 /100 WBC (0); Platelet Count 306 Thou/mm3 (140-440); RDW Standard Deviation 39.4 fL (35.1-43.9); Red Blood Count 5.06 Miln/mm3 (4.50-5.90); White Blood Count 5.9 Thou/mm3 (3.8-10.6)
[2024-05-27 16:17] LABS: Prothrombin Time 11.1 Seconds (9.0-12.2)
[2024-05-27 16:19] LABS: Alanine Aminotransferase 63 U/L (10-49); Albumin, Serum 4.6 gm/dL (3.5-5.0); Albumin/Globulin Ratio 1.6 (1.2-2.2); Alkaline Phosphatase 71 U/L (46-116); Anion Gap 8 (7-16); Aspartate Amino Transferase 33 U/L (0-34); BUN/Creatinine Ratio 14 Ratio (12-20); Bilirubin,Total 0.7 mg/dL (0.3-1.2); Blood Urea Nitrogen 13 mg/dL (9-23); Calcium 9.9 mg/dL (8.3-10.6); Calcium (Corrected) 9.9 mg/dL (8.5-10.1); Carbon Dioxide 28.5 mMol/L (20.0-31.0); Chloride 101 mMol/L (98-107); Creatinine (Component) 0.9 mg/dL (0.6-1.3); Globulin 2.9 gm/dL (2.3-3.5); Glucose 106 mg/dL (74-106); Osmolality,Calculated 273 (275-295); Potassium 4.1 mMol/L (3.4-5.1); Sodium 137 mMol/L (136-145); Total Protein 7.5 gm/dL (5.7-8.2); eGFR > 60 See Note
--- NOTE | 2024-05-27 16:47 | PC.CC ---
Addendum entered by Antionette David RN 05/27/24 18:21: Per Dr. Grant report Dr. Chino is to come in and see pt, transfer is cancelled at this time pending evaluation Addendum entered by Anitonette David RN 05/27/24 17:30: Clary called back at this time and states that her neurosurgeon Dr. Wilhelm states this patient does not have a bleed and neurology needs to be consulted first Dr. Rodriguez made aware Addendum entered by Antionette David RN 05/27/24 16:54: 1654-Spoke to Clary at [facility] about possible transfer she states they will call back after reviewed Original Note: 2363- chart faxed to [facility] [address] TALAMANTES called transfer nurse stating pt needed transfer to [facility] for continuation of care and worsening of sx. pt was dc three days ago from [facility] per Dr. Rodriguez report, pt needs to go back for worsening infarct to basal ganglia
[2024-05-27 18:24] VITALS: BP 116/81; PULSE 77; RESP 17; TEMP 37.2; O2SAT 96
--- NOTE | 2024-05-27 18:29 | PD.EDADDENDU ---
Emergency Room Addendum Addendum Narrative: 18:00 Care assumed from Rajiv Vicente Past medical, surgical, social and family history reviewed. Vitals and home medications reviewed. Results and treatment plan discussed. I will assume the care of the patient at this time and will follow the patient, pending neurology consultation by Dr. Dennis, reassessment and final disposition. Please refer to the emergency department record for history and examination from initial visit. EMS notes reviewed by me. Nursing notes reviewed by me. Vital signs reviewed by me. skilled nursing records reviewed by me. I reviewed SNF records from [facility]. [facility] medical records reviewed by me. 20:00 Patient had consult with Dr. Dennis at bedside who recommended inpatient admission for EEG, further work-up and will follow. 20:41 Hospitalist, Dr. Walker, made aware of the patient?s HPI, PMHx, lab and/or radiology results. Treatment plan was discussed. Will admit for further evaluation and management. Accepts patient for admission. MD Attestation Attestation Scribe Attestation: I, Sylvie Naidu am scribing for and in the presence of Dr. Bower. Provider Notation: Although this document has been carefully reviewed, there may still be some phonetic and other typographical errors. These errors are purely grammatical due to imperfections in the software program and should not be construed in any way to compromise the substance of the patient's medical care during this visit.
--- NOTE | 2024-05-27 22:04 | ECHO_ITS ---
Transthoracic Echo Report Ht (in): 72 Wt (lb): 200 Exam Location: Portable Status: Emergency Card Grinder: Ting Huerta Indications: Procedure Performed: BP: 122 / 82 HR: 79 Rhythm: Sinus Technical Quality: Technically difficult study Contrast: Agitated Saline Total Dose (mL): MEASUREMENTS (Male / Female) Normal Values 2D ECHO LVOT Diameter 2.2 cm Ascending Aorta Diameter 3.9 cm M-MODE Aortic Root Diameter MM 3.0 cm LA Systolic Diameter MM 3.3 cm LA Ao Ratio MM 1.1 AV Cusp Separation MM 2.3 cm DOPPLER AV Peak Velocity 76.0 cm/s AV Peak Gradient 2.3 mmHg AV Mean Gradient 1.0 mmHg AV Velocity Time Integral 11.3 cm LVOT Peak Velocity 51.7 cm/s LVOT Peak Gradient 1.1 mmHg LVOT Velocity Time Integral 9.9 cm LVOT Cardiac Index 1373.3 cm?/min?m? AV Area Cont Eq vti 3.3 cm? AV Area Cont Eq pk 2.6 cm? LV E' Lateral Velocity 8.4 cm/s LV E' Septal Velocity 4.2 cm/s FINDINGS Left Ventricle Normal left ventricular size, wall thickness with severe akinesis of anterior apical and inferio api marcelle sgments with apical dyskinesis LVEF 35-40% Evidence LV apical thrombus. Right Ventricle The right ventricle is normal in size and systolic function. Left Atrium The left atrium is normal by two-dimensional, color flow and Doppler imaging with no structural abnormalities, no thrombus formation present. Right Atrium The right atrium is normal by two-dimensional imaging, color flow and Doppler imaging with no struct ural abnormalities, no thrombus formation present. Atrial Septum The interatrial septum appears normal with no evidence of a shunt. Aorta The aorta is normal by two-dimensional, color flow and Doppler interrogation. Mitral Valve The mitral valve is normal by two-dimensional, color flow and Doppler interrogation. There is no sig nificant mitral valve regurgitation. Aortic Valve The aortic valve is trileaflet and normal by two-dimensional, color flow and Doppler interrogation. There is no significant aortic valve regurgitation. Tricuspid Valve The tricuspid valve is normal by two-dimensional, color flow and Doppler interrogation. There is no significant tricuspid valve regurgitation. Pulmonic Valve The pulmonic valve is not well visualized. There is no significant pulmonic valve regurgitation. Vessels The pulmonary artery appears normal. The inferior vena cava pulmonary and hepatic veins appear og l. Pericardium The pericardium is normal by two-dimensional imaging. There is no significant pericardial effusion. CONCLUSIONS Negative bubble study. Suboptimal images due to patient being unstable. Normal LV size anetrior apical and inferior apical akineis with 2.1x1.5 cm MURAL THROMUS in the apex , Moderate LV dysfunction LVEF 35-40% Normal RV size and function Gisel Curry (Electronically Signed) Final Date: 28 May 2024 17:50
--- NOTE | 2024-05-27 22:16 | PD.RESHP ---
Documentation for date of: 05/27/24 HPI History of Present Illness Chief complaint: Altered Mental Status History of present illness: HPI: Patient accompanied by his mother, Nuria at bedside. Patient is poor historian and history obtained from his mother. 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 He follows up regularly with tax technician Dr. Bonilla in [place], previously he followed up with neurologist Dr. Dennis. Patient presented today with a chief complaint of altered mental status. According to patient's mother, he was at the acute rehab facility, [facility] and he began to have abnormal speech. He spoke about peanut butter for more than 1 hour and also did not recognize his daughter at the time. His mother denied any loss of consciousness, abnormal weakness, headaches, new onset visual changes, speech changes, headaches or dizziness. At baseline patient's mother stated that he had residual left sided weakness since his first stroke in 2020 but was able to ambulate and carry out some ADLs independently. However since his recent stroke in April 2024, he has been bedbound but able to work with physiotherapy standing with assistance. He can shave himself but also requires assistance with eating and self-care. He also has complete right-sided hemianopia, dyslexia, agraphia and expressive aphasia at baseline. Of note 1 month ago 04/26/2024, patient had a hemorrhagic stroke and presented to [facility] emergency department. He was subsequently transferred to [facility] where he spent approximately 3 weeks hospitalized. He was intubated and mechanically ventilated in the ICU for 1 week while on nicardipine infusion. Goals of care discussion was held and his mother stated that she was told the patient would . However he survived and was subsequently downgraded from the ICU and discharged to acute rehab [facility] on 05/24/2024. ED course: BP 137/98, P80, RR 19, temp 98.3 F, SpO2 97% on room air. Labs significant for Hb 16.2, HCT 46.3, BUN 13, CR 0.9. EKG showed sinus rhythm, rate 72, Q waves in inferior and anterolateral septal leads, incomplete RBBB. No acute ST changes. CT brain significant for large acute, subacute infarct right basal ganglia. Dr. Dennis, neurologist was curb sided by the ED and she said she thinks the patient is having seizures and not a stroke. She recommended admission for EEG. Patient will be admitted for stroke rule out and new onset seizures rule out. Neurology, Dr. Dennis consulted and is closely following the case. Review of Systems Review of Systems ROS Unobtainable: unobtainable due to medical condition (Patient has expressive aphasia) Past Medical History Past Medical History Comments PMH COMMENT: Past medical history: ? Essential hypertension - Hyperlipidemia ? Myocardial infarction [2017] ? History of LV thrombus [2020] - History of left posterior temporal, occipital and parietal infarct. Also left basal ganglia and left caudate infarct [2020] - History of right basal ganglia hemorrhagic stroke April 2024. Medication list: - ASA 81 mg po daily ? Lisinopril 20 Mg p.o. daily ? Nicardipine 20 Mg p.o. every 8 hourly ? Atorvastatin 80 Mg p.o. 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 Quit 1 month ago Social History Note: lives with 80 year old Mother Exam Vital Signs Temp Pulse Resp BP Pulse Ox O2 Del Method 98.9 F 77 17 116/81 96 Room Air 05/27/24 18:24 05/27/24 18:24 05/27/24 18:24 05/27/24 18:24 05/27/24 18:24 05/27/24 18:24 Narrative Exam Constitutional Alert, oriented x 1 [ Person] and comfortable. Elderly male HEENT Vision grossly intact. Patent nares. Trachea midline Respiratory Chest normal on inspection and clear auscultation bilaterally Cardiovascular S1 and S2 audible, RRR. No murmurs carotid bruit. No gross JVD. Abdominal Soft and non tender to palpation in all quadrants. BS + Genitourinary No bladder tenderness, no flank pain. Normal to palpation Musculoskeletal Extremities tone within normal limits. No LE edema. Neurological Complete right-sided hemianopia, dyslexia, agraphia, expressive aphasia, reflexes intact, NIHSS: 6 [1B +2, 3 + 2 , 9 +2] Skin Warm, dry and intact. No apparent lesions. Psychiatric Patient has good affect, is cooperative Results: Labs 05/27/24 15:32 05/27/24 15:32 Labs: Short CBC 05/27/24 Range/Units 15:32 WBC 5.9 (3.8-10.6) Thou/mm3 Hgb 16.2 H (13.5-16.0) g/dL Hct 46.3 (41.0-53.0) % Plt Count 306 D (140-440) Thou/mm3 BMP 05/27/24 15:32 Sodium 137 Potassium 4.1 Chloride 101 Carbon Dioxide 28.5 BUN 13 Creatinine 0.9 Glucose 106 Calcium 9.9 Liver Function 05/27/24 Range/Units 15:32 Total Bilirubin 0.7 (0.3-1.2) mg/dL AST 33 (0-34) U/L ALT 63 H (10-49) U/L Alkaline Phosphatase 71 (46-116) U/L Albumin 4.6 (3.5-5.0) gm/dL Quality Measures Quality Measures none Medications Home Medications and Allergies Allergies Allergy/AdvReac Type Severity Reaction Status Date / Time No Known Allergies Allergy Unverified 03/28/21 16:44 Visit Medications Acetaminophen (Acetaminophen 325 Mg Tablet) 650 mg PO Q6H PRN PRN Reason: Fever >100.3 or pain Stop: 06/26/24 21:54 Hydrocodone Bitart/Acetaminophen (Hydrocodone/Apap 5/325 Tablet) 1 tab PO Q4HR PRN PRN Reason: PAIN SCALE 4-10(Mod-Sev Stop: 06/01/24 21:54 Albuterol/Ipratropium (Albuterol/Ipratropium (Duoneb) Rt Tabitha 3 Ml Nebu) 3 ml INH Q2HR PRN PRN Reason: SHORTNESS OF BREATH OR WHEEZE Stop: 06/26/24 21:54 Atorvastatin Calcium (Atorvastatin Calcium 20 Mg Tablet) 80 mg PO HS DAVID Stop: 06/27/24 20:59 Ondansetron HCl (Ondansetron Inj 2 Mg/Ml Inj 2 Ml) 4 mg IV Q6H PRN; Protocol PRN Reason: NAUSEA OR VOMITING Stop: 06/26/24 21:54 Pantoprazole Sodium (Pantoprazole 40 Mg Tablet) 40 mg PO QDAY DAVID Stop: 06/27/24 08:59 Sennosides (Senna Tablet) 1 tab PO QDAY DAVID; Protocol Stop: 06/27/24 08:59 Assessment & Plan Plan Patient accompanied by his mother, Nuria at bedside. Patient is poor historian and history obtained from his mother. 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 He follows up regularly with tax technician Dr. Bonilla in [place], previously he followed up with neurologist Dr. Dennis. Patient presented today with a chief complaint of altered mental status. Patient will be admitted for stroke rule out and new onset seizures rule out. 1. Acute encephalopathy, likely epileptic 2. Stroke rule out 3. New onset seizure rule out Patient presented with altered mental status. He was speaking about peanut butter for 1 hour and did not recognize his own daughter. He was recently admitted to the rehab facility 3 days ago. On exam patient was back to his baseline according to his mother. He had complete right-sided hemianopia, dyslexia, agraphia and expressive aphasia at baseline. DDx: New onset seizure, medication side effect, acute stroke, electrolyte imbalance, hospital induced delirium. CT brain significant for large acute, subacute infarct right basal ganglia. Plan : - NPO until swallow screen passed. Once passed patient can have regular cardiac diet - Aspiration precautions - Seizure precautions - Neuro checks q 4H - Head of bed elevated to 30 degrees - Swallow eval and bedside swallow screen ordered - PT/OT referrals placed - HbA1C, Lipid panel, TSH ordered - ECHO with bubble study ordered - Brain MRI stroke protocol was ordered - EEG awake and drowsy was ordered - PRN Acetaminophen 650mg to avoid hyperthermia - Lorazepam 4 Mg IV x 1 as needed if any seizure-like activity > 5 minutes. - Dr Dennis consulted, pending in-house Neurology recommendations 4. History of acute right basal ganglia hemorrhagic stroke April 2024 Of note 1 month ago 04/26/2024, patient had a hemorrhagic stroke and presented to [facility] emergency department. He was subsequently transferred to [facility] where he spent approximately 3 weeks hospitalized. He was intubated and mechanically ventilated in the ICU for 1 week while on nicardipine infusion. Head CT noncontrast completed on 04/26/2024 findings include: Acute appearing hemorrhage in the right basal ganglia 13 x 6 mm with surrounding mild edema. Since this recent stroke patient has not ambulated. However he has worked with physical therapy and can stand with assistance. 5. History of left posterior temporal, occipital and parietal ischemic stroke [2020] 6. History of left basal ganglia and left caudate ischemic stroke with hemorrhagic conversion [2020] After the strokes patient had deficits including right-sided hemianopia, dyslexia, agraphia and expressive aphasia. However he was able to ambulate until recent stroke April 2024. Brain MRI completed on 03/29/2021 findings include: Large acute infarct left posterior temporal left occipital and left posterior parietal lobes, infarcts left basal ganglia and left caudate nucleus. Mass effect with effacement of left cerebral sulcal and mild shift of the frontal horns to the right. 7. Essential hypertension 8. Hyperlipidemia 9. History of [place] 2016 10. History of LV thrombus 2020 On admission BP 137/98. Home medication lisinopril 20 Mg p.o. daily, nicardipine 20 Mg p.o. every 8 hourly, atorvastatin 80 Mg p.o. at bedtime, aspirin 81 Mg p.o. daily. Patient follows up with tax technician Dr. Bonilla in [place]. Plan: - Resumed home medication atorvastatin 80 Mg p.o. at bedtime ? Antihypertensives on hold in light of normotension/hypotension. Day team to decide when to resume. ? Aspirin currently on hold pending neuro recs ? Transthoracic echocardiogram ordered to assess if LV thrombus still present, wall motion abnormalities, valvular defects and ejection fraction. Health maintenance: Disposition: EEG, MR tegan protocol. Neurology Recommendations Diet: NPO until swallow screen passed. After can have Cardiac diet Lines: pIVs GI Prophylaxis: Pantoprazole Thrombo Prophylaxis: SCDs Code status: DNR Plan of care discussed with Attending Dr. Deb Alejo MD PGY 1 Attending Provider Attestation/Addendum 58-year-old male patient with recent hemorrhagic stroke last month was admitted for altered mental status, abnormal speech and able to recognize contacts. Imaging done showed no acute changes. The patient is being followed by Dr. Dennis who recommended admission for possible seizures. Past medical history significant for hypertension, history of LV thrombus, history of stroke with residual weakness. Patient is bedbound after his last CVA. I discussed with and supervised the resident physician who took care of this patient. I agree with the assessment and plan as above.
[2024-05-27 22:48] VITALS: BP 95/76; PULSE 64; RESP 17; O2SAT 97
[2024-05-27 23:14] VITALS: PULSE 83; RESP 16; RESP 97
--- NOTE | 2024-05-27 23:25 | PD.NEUROCONS ---
History of Present Illness Data of Consult Requesting Physician: Rigo Boyd MD Primary Care Provider: Physician No Primary/Family Consult Narrative History of present illness: Patient is a 58-year-old male with hypertension, hyperlipidemia, myocardial infarction 2016, LV thrombus 2020, left posterior temporal, occipital and parietal ischemic stroke with hemorrhagic conversion in 2020 and hemorrhagic stroke right basal ganglia April 2024. He presented today with altered mental status, per patient's mother, he was at the rehab facility, [facility] and started having nonsensical speech. He spoke about peanut butter for more than 1 hour and also did not recognize his daughter at the time. His mother denied any loss of consciousness, abnormal weakness, headaches, new onset visual changes, headaches or dizziness. At baseline he had residual left sided weakness since his first stroke in 2020 but was able to ambulate and carry out some ADLs independently. However since his recent stroke in April 2024, he could only work with physiotherapy standing with assistance. He can shave himself but also requires assistance with eating and self-care. He also has right homonymous hemianopsia, agraphia and expressive aphasia at baseline as a residual deficit from the stroke in 2020 In 04/26/2024, patient had a hemorrhagic stroke and presented to our ER, subsequently transferred to [facility] where he spent approximately 3 weeks hospitalized. He was intubated and mechanically ventilated in the ICU for 1 week while on nicardipine infusion. His mother stated that she was told the patient would not make it. However he survived and was subsequently downgraded from the ICU and discharged to acute rehab [facility] on 05/24/2024. Workup in the ER: Vitals: BP 137/98, P80, RR 19, temp 98.3 F, SpO2 97% on room air. Labs significant for Hb 16.2, HCT 46.3, BUN 13, CR 0.9. EKG showed sinus rhythm, rate 72, Q waves in inferior and anterolateral septal leads, incomplete RBBB. No acute ST changes. CT brain significant for large acute, subacute infarct right basal ganglia. I saw the patient in the ER, suspected nonconvulsive seizures in addition to the new/subacute infarct in the right basal ganglia, recommended admission for EEG and close monitoring. cc:: cc: Rigo Boyd MD Review of Systems Review of Systems ROS Unobtainable: unobtainable due to medical condition Past Medical History Past Medical History Comments PMH COMMENT: Past medical history: ? Essential hypertension - Hyperlipidemia ? Myocardial infarction [2017] ? History of LV thrombus [2020] - History of left posterior temporal, occipital and parietal infarct. Also left basal ganglia and left caudate infarct [2020] - History of right basal ganglia hemorrhagic stroke April 2024. Medication list: - ASA 81 mg po daily ? Lisinopril 20 Mg p.o. daily ? Nicardipine 20 Mg p.o. every 8 hourly ? Atorvastatin 80 Mg p.o. 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 Quit 1 month ago Social History Note: lives with 80 year old Mother Meds Home Medications and Allergies Home Medications ?Medication ?Instructions ?Recorded ?Confirmed ?Type aspirin 325 mg tablet,delayed 325 mg PO QDAY 05/28/24 05/28/24 History release atorvastatin 40 mg tablet 80 mg PO HS 05/28/24 05/28/24 History carvedilol 3.125 mg tablet 3.125 mg PO BID 05/28/24 05/28/24 History clonidine 0.1 mg/24 hr weekly 0.1 mg topical QWEEK 05/28/24 05/28/24 History transdermal patch divalproex 250 mg tablet,delayed 250 mg PO HS 05/28/24 05/28/24 History release (Depakote) lisinopril 20 mg tablet 20 mg PO DAILY 05/28/24 05/28/24 History metformin 500 mg tablet 500 mg PO HS 05/28/24 05/28/24 History morphine 10 mg/5 mL oral solution 1 mg PO Q4H PRN Severe Pain (Scale 05/28/24 05/28/24 History Score 7-10) nicardipine 20 mg capsule 20 mg PO Q8HR 05/28/24 05/28/24 History Allergies Allergy/AdvReac Type Severity Reaction Status Date / Time No Known Allergies Allergy Unverified 03/28/21 16:44 Exam - Neurology Vital Signs Temp Pulse Resp BP Pulse Ox O2 Del Method 98.9 F 83 16 95/76 97 Room Air 05/27/24 18:24 05/27/24 23:14 05/27/24 23:14 05/27/24 22:48 05/27/24 22:48 05/27/24 22:48 Narrative Exam GENERAL APPEARANCE: Well developed, well-nourished white male in no acute distress. HEENT:? Normocephalic, atraumatic, extraocular movements intact.? Pupils:? Equal reacting to light. NECK:? Supple, no JVD or bruits. CARDIOVASULAR:? Heart: S1, S2 heard, regular without S3-S4 or murmur no rubs or gallops. LUNGS/CHEST:? Clear to auscultation bilaterally.? No rails, rhonchi, or wheezing.? Normal inspection. ABDOMEN:? Soft, nontender, with normal bowel sounds.? No pulsatile masses.? No rebound, rigidity, or guarding.? Normal inspection and palpation. EXTREMITIES:? Normal inspection and palpation. No edema, clubbing or cyanosis. SKIN:? Warm and dry without rashes.? Normal inspection. MUSCULOSKELETAL:? No cervical, thoracic, lumbar or midline bony tenderness.? Normal inspection. NEURO: Awake, alert,? Wernicke's aphasia present.? Able to move both upper and lower extremities purposefully, difficult to follow commands as he has comprehension difficulties from the infarcted area.No pronator drift noted.? Deep tendon reflexes:? 2+ bilaterally symmetrical.? Plantar reflex:? Downgoing bilaterally.? Gait: Not tested today. No signs of meningeal irritation noted.? Rest of the exam: Limited secondary to aphasia PSYCHIATRIC: Limited secondary to aphasia Results Labs 05/27/24 15:32 05/27/24 15:32 Labs: Short CBC 05/27/24 Range/Units 15:32 WBC 5.9 (3.8-10.6) Thou/mm3 Hgb 16.2 H (13.5-16.0) g/dL Hct 46.3 (41.0-53.0) % Plt Count 306 D (140-440) Thou/mm3 BMP 05/27/24 15:32 Sodium 137 Potassium 4.1 Chloride 101 Carbon Dioxide 28.5 BUN 13 Creatinine 0.9 Glucose 106 Calcium 9.9 Liver Function 05/27/24 Range/Units 15:32 Total Bilirubin 0.7 (0.3-1.2) mg/dL AST 33 (0-34) U/L ALT 63 H (10-49) U/L Alkaline Phosphatase 71 (46-116) U/L Albumin 4.6 (3.5-5.0) gm/dL Assessment & Plan Assessment and plan (1) CVA (cerebral vascular accident): Status: Acute Assessment and plan: Based on the repeat CT today, hypodensity in the right basal ganglia with compression of frontal horn of the right lateral ventricle. Encephalomalacia in the left parietotemporal area, from stroke from 2020 No hemorrhages noted Continue with aspirin 325 mg a day along with statin and permissive blood pressure control (2) Altered mental status: Status: Acute Assessment and plan: Suspect nonconvulsive seizures: With his intermittent upward gaze and nonsensical speech Follow-up with EEG (3) Hypertension: Status: Acute Assessment and plan: Continue with the permissive blood pressure control (4) Wernicke's aphasia: Status: Chronic Assessment and plan: Improved following the stroke in 2020 and the bleed in April 2024.
[2024-05-28] VITALS (8 sets, daily range): BP systolic 111–149; BP diastolic 71–84; PULSE 68–88; RESP 14–97; TEMP 36.7–37; O2SAT 94–99; BMI 13.0
--- NOTE | 2024-05-28 | XR_ITS ---
Examinations: MRI Brain without intravenous contrast. MRA brain without intravenous contrast. MRA carotids without intravenous contrast 3-D vascular reconstructions Date and time of exam: May 28, 2024 1249 hours INDICATIONS: Enlarging infarct in the right basal ganglia on CT brain scan May 27, 2024, focal neurologic deficits confusion beginning May 27, 2024 Technique: Multiple axial and sagittal images of the brain have been obtained MRA brain carotid images without contrast obtained, including 3-D postprocessing, vascular maximum intensity projection images Findings: Sellaturc[place] is not enlarged. The optic chiasm and infundibular stalk are not remarkable. Prepontine and interpeduncular cisterns are not enlarged. No localized enlargement of the medulla or mani. Fourth ventricle and cerebellar tonsils normal in position. Subacute hemorrhage is not seen. Fourth ventricle is midline. Mass in the cerebellopontine angle region is not evident. 7th and 8th nerve complexes exhibits symmetry. Globes are symmetrical with no retro-orbital mass. Increased white matter signal evident especially in the right basal ganglia Diffusion-weighted images demonstrate 18 x 38 mm focus restricted diffusion right caudate nucleus Mass-effect upon the ventricular system is not identified. MRA carotid images no filling left internal carotid artery. MRA brain images decreased filling left middle cerebral artery branches Impression: 18 x 38 mm acute infarct right caudate nucleus Occlusion of the left internal carotid artery at the carotid bifurcation Decreased filling of left middle cerebral artery artery branches
--- NOTE | 2024-05-28 09:11 | PCS.ST ---
Swallow Evaluation completed. See report for details. Cardiac chopped diet. ST will follow up as needed.
--- NOTE | 2024-05-28 09:12 | ESPR_ITS ---
<Statement entered by Ottoniel Rice MD - 05/28/24 18:04> Patient was seen and examined at the bedside. This patient is admitted overnight he is a 58-year-old male with past medical history of hemorrhagic stroke and was discharged to SNF for rehabilitation. He presented with new onset seizures and head CT was significant for subacute infarct of right basal ganglia. Patient is alert and oriented to himself but not to time and place. He was not able to comprehend the questions being asked. He was repeating the statements which was asked to him. He was moving his extremities spontaneously. Patient was placed on mittens as he was pulling out his lining cleaner. MRI brain was ordered to rule out infarction which showed infarction of right caudate nucleus and occlusion of internal carotid artery. Neurologist was consulted initially we gave high dose aspirin 325 mg however per her recommendations we reduce the dose to 81 mg for concern of history of brain bleed and she recommended that patient will need outpatient follow-up with her computer technician, Dr. Bonilla in [place] for occlusion of internal carotid artery. EEG was significant for slowing of waves there for neurologist recommended that we will start with Depakote as patient response to Keppra with agitation and will likely follow-up with echocardiogram tomorrow morning. Continuing with aspirin and statin therapy. Patient was started on dysphagia 3 diet. All labs and orders were reviewed. I saw and examined the patient, and I agree with current management stated by Dr Maria MD,PGY1. Plan of care was discussed with the attending physician and resident physician. Disclaimer: Despite multiple revisions, due to the dictation software being used, the document bellow may not be free of grammatical errors including phonetic/typographic errors. However, this does not deter from our commitment to providing health care in the patient's best interest in mind. Dr. Dwayne MD, PGY 2 Documentation for date of: 05/28/24 Subjective Subjective Interval history: Patient examined at bedside. Difficult to obtain history from patient has he has aphasia. Able to comprehend some simple phrases and commands. Reports he knows his name but does not know the place or time. Does not report any pain at this time. Tends to repeat same simple phrases over and over. Exam Vital Signs Temp Pulse Resp BP Pulse Ox O2 Del Method 98.6 F 81 18 117/84 98 Room Air 05/28/24 03:54 05/28/24 03:54 05/28/24 03:54 05/28/24 03:54 05/28/24 03:54 05/28/24 03:54 Narrative Exam General: Patient resting in bed. Has mittens on hands. CHEST: Symmetrical, atraumatic, and with equal expansion , Nontender on palpation no deformity and no crepitus. CARDIOVASCULAR: Heart regular rhythm no murmur or gallop rub or extra beats. LUNGS: Clear to auscultation bilaterally with symmetrical chest rise.? No laboring tachypnea or wheezing.? No intercostal subcostal retraction.? No rales and no rhonchi. ABDOMEN: Soft, flat, nontender to palpation, no guarding or rebound tenderness.? There are no abnormal masses palpated.? Active and normal bowel sounds. EXTREMITIES: Nontender.? No edema.? No cyanosis.? Patient has 4/5 strength in upper extremity with flexion and extension of arms. Able to abduct arms against gravity. 3/5 strength with hip flexion bilaterally. Plantarflexes and dorsiflexes toes. Sensation to light touch intact to upper and lower extremity. NEURO: Mental Status: Patient reports knowing his name but not place and time. Speech: His speech is fluent, he has some difficulty with comprehension and repetition is impaired. He is unable to recognize a pencil or tell me what it is used for. Patient is able to track finger around room. Right and left horizontal nystagmus noted. Patient able to raise eyebrows and smile. Patellar, brachioradialis, and biceps reflexes 2+. No pronator drift noted. Objective Labs 05/30/24 05:10 05/30/24 05:10 Labs: Laboratory Results - last 24 hr 05/27/24 15:32 WBC 5.9 RBC 5.06 Hgb 16.2 H Hct 46.3 MCV 92 MCH 32.0 MCHC 35.0 RDW Std Deviation 39.4 Plt Count 306 D Neut % (Auto) 68 Lymph % (Auto) 21 [place] % (Auto) 9 Eos % (Auto) 2 Baso % (Auto) 1 Neut # (Auto) 4.0 Lymph # (Auto) 1.2 [place] # (Auto) 0.5 Eos # (Auto) 0.1 Baso # (Auto) 0.1 Immature Gran # (Auto) 0.02 H Absolute Nucleated RBC 0.00 Immature Gran % 0 Nucleated RBC % 0 PT 11.1 INR 1.0 APTT 21.0 L Sodium 137 Potassium 4.1 Chloride 101 Carbon Dioxide 28.5 Anion Gap 8 BUN 13 Creatinine 0.9 Estim Creat Clear Calc Not Performed. eGFR > 60 BUN/Creatinine Ratio 14 Glucose 106 Calculated Osmolality 273 L Calcium 9.9 Corrected Calcium 9.9 Total Bilirubin 0.7 AST 33 ALT 63 H Alkaline Phosphatase 71 Total Protein 7.5 Albumin 4.6 Globulin 2.9 Albumin/Globulin Ratio 1.6 Quality Measures Quality Measures VTE prophylaxis Assessment & Plan Assessment Current Active Medications: Generic Name Dose Route Start Last Admin Trade Name Freq PRN Reason Stop Dose Admin Acetaminophen 650 mg 05/27/24 21:55 Acetaminophen 325 Mg Tablet PO 06/26/24 21:54 Q6H PRN Fever >100.3 or pain Hydrocodone Bitart/Acetaminophen 1 tab 05/27/24 21:55 Hydrocodone/Apap 5/325 Tablet PO 06/01/24 21:54 Q4HR PRN PAIN SCALE 4-10(Mod-Sev Albuterol/Ipratropium 3 ml 05/27/24 21:55 Albuterol/Ipratropium (Duoneb) Rt Tabitha 3 Ml Nebu INH 06/26/24 21:54 Q2HR PRN SHORTNESS OF BREATH OR WHEEZE Aspirin 81 mg 05/28/24 09:00 Aspirin Ec 81 Mg Tabec PO 06/27/24 08:59 QDAY [facility] Atorvastatin Calcium 80 mg 05/28/24 21:00 Atorvastatin Calcium 20 Mg Tablet PO 06/27/24 20:59 [facility] Ondansetron HCl 4 mg 05/27/24 21:55 Ondansetron Inj 2 Mg/Ml Inj 2 Ml IV 06/26/24 21:54 Q6H PRN NAUSEA OR VOMITING Protocol Pantoprazole Sodium 40 mg 05/28/24 09:00 Pantoprazole 40 Mg Tablet PO 06/27/24 08:59 QDAY [facility] Sennosides 1 tab 05/28/24 09:00 Senna Tablet PO 06/27/24 08:59 QDAY [facility] Protocol Plan Patient is a 58-year-old male with past history of essential hypertension, hyperlipidemia, myocardial infarction 2016, LV thrombus 2020, left posterior temporal, occipital and parietal ischemic stroke with hemorrhagic conversion 2020 and hemorrhagic stroke right basal ganglia April 2024. He follows up regularly with computer technician Dr. Bonilla in [place], previously he followed up with neurologist Dr. Dennis. Patient presented today with a chief complaint of encephalopathy and admitted to rule out possible causes such as stroke and new onset seizures. #Acute encephalopathy #Acute infarct involving right basal ganglia #New onset seizure Patient presented with altered mental status. He was speaking about peanut butter for 1 hour and did not recognize his own daughter. He was recently admitted to the rehab facility 3 days ago. On exam patient was back to his baseline according to his mother. He had complete right-sided hemianopia, dyslexia, agraphia and aphasia at baseline. DDx: New onset seizure, medication side effect, acute stroke, electrolyte imbalance, hospital induced delirium CT brain significant for large acute, subacute infarct right basal ganglia. Encephalomalacia noted in left occipital, parietal and temporal lobe. MRI Brain: Acute infarct involving the right caudate nucleus, occlusion left internal carotid artery. Patient passed swallow eval bedside swallow screen. EEG showed seizure activity and diffuse slowing. Plan : -Aspiration precautions -Seizure precautions -Neuro checks q 4H -Head of bed elevated to 30 degrees -Swallow eval and bedside swallow screen passed -PT/OT referrals placed -HbA1C, Lipid panel, TSH ordered -ECHO with bubble study ordered -PRN Acetaminophen 650mg to avoid hyperthermia -ASA 325 mg was restarted, will change to 81 mg starting tomorrow. -Depakote -Lorazepam 2 Mg IV every 30 minutes as needed if any seizure-like activity > 5 minutes. -Dr Dennis consulted, recommendations appreciated -Patient to follow-up outpatient with computer technician Dr. Bonilla for internal carotid artery occlusion. 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 MRI revealed patient has occlusion of left internal carotid artery at carotid bifurcation and decreased filling of left MCA branches. Home medication lisinopril 20 Mg p.o. daily, nicardipine 20 Mg p.o. every 8 hourly, atorvastatin 80 Mg p.o. at bedtime, aspirin 81 Mg p.o. daily. Patient follows up with computer technician Dr. Bonilla in [place]. Plan: -Resumed home medication atorvastatin 80 Mg p.o. at bedtime -Antihypertensives on hold in light of normotension/hypotension. Day team to decide when to resume. -Started on Aspirin 325 per neuro recs, will change to 81 mg daily starting tomorrow -Transthoracic echocardiogram ordered to assess if LV thrombus still present, wall motion abnormalities, valvular defects and ejection fraction. Health maintenance Diet: Cardiac GI prophylaxis: Protonix 40 mg IV. daily DVT prophylaxis:SCDs Diet: Cardiac, dysphagia level 3 CODE STATUS: DNR Disposition: Patient is admitted for further workup for encephalopathy -- Patient was seen and discussed with attending physician, Dr. Rosa and resident physician, Dr. Sifuentes, PGY1 and Dr. Rice, PGY 2. Note was written with assistance from Dr. Maria MD PGY?1 [employer] Attending Provider Attestation/Addendum I attest that I was physically present for the evaluation, physical examination, lab and imaging review of the patient with the residents. I discussed the case with the residents and agree with the findings and plans of care as documented above. Patient was admitted overnight for management of acute encephalopathy in setting of new onset seizure, acute right basal ganglia. MRI Brain showed Acute infarct involving the right caudate nucleus, occlusion left internal carotid artery; occlusion of left internal carotid artery at carotid bifurcation and decreased filling of left MCA branches. At bedside, he is oriented to himself but not to place and time. Unable to answer questions appropriately and appears to be speaking out of context with repeated sentences. Continues to be on Aspirin, statin, seizure precautions. Changed aspirin from 325 to 81 daily as patient has history of previous hemorrhagic conversion. Continues to be on Depakote as patient was found to have EEG waves suggestive of seizure activity. Awaiting echocariography report. Shahzad Rosa
[2024-05-28 09:19] LABS: Basophils # (Auto) 0.1 Thou/mm3 (0.0-0.2); Basophils % (Auto) 1 % (0-2.5); Eosinophils # (Auto) 0.1 Thou/mm3 (0.0-0.5); Eosinophils % (Auto) 1 % (0-10); Hematocrit 44.9 % (41.0-53.0); Hemoglobin 15.6 g/dL (13.5-16.0); Immature Granulocytes % (Auto) 0 % (0-0); Immature Granulocytes Auto 0.01 Thou/mm3 (0.00-0.00); Lymphocytes # (Auto) 1.4 Thou/mm3 (1.0-4.8); Lymphocytes % (Auto) 28 % (10-50); Mean Corpuscular HGB Conc 34.7 g/dl (31.0-37.0); Mean Corpuscular Hemoglobin 32.5 pg (25.0-35.0); Mean Corpuscular Volume 94 fL (80-100); Monocytes # (Auto) 0.4 Thou/mm3 (0.0-0.8); Monocytes % (Auto) 8 % (0-12); Neutrophils # (Auto) 3.2 Thou/mm3 (1.8-7.7); Neutrophils % (Auto) 62 % (37-80); Nucleated Red Blood Cell % 0 /100 WBC (0); Platelet Count 270 Thou/mm3 (140-440); RDW Standard Deviation 40.8 fL (35.1-43.9); White Blood Count 5.1 Thou/mm3 (3.8-10.6)
[2024-05-28 09:30] LABS: Glucose Estimated Average 114 mg/dL (80-131); Hemoglobin A1C 5.6 % Hgb (4.8-6.0)
--- NOTE | 2024-05-28 09:35 | PC.SS ---
Patient Mode Zuñiga is a 58 Year old male admitted for New onset Seizures. contacted patient's mother, Nuria Perez in order to complete initial assessment and verify demographic information. Nuria reports she is patient's surrogate decision maker [phone]. She reports patient resides at [facility]. Patient needs assistance completing all ADL's. Patient is not able to ambulate, however is starting PT at [facility]. At time of discharge patient will return back to [facility]. Discharge Plan: [facility] Next of kin: Mother, Nuria Perez [phone]
[2024-05-28 09:51] LABS: Alanine Aminotransferase 51 U/L (10-49); Albumin, Serum 4.6 gm/dL (3.5-5.0); Albumin/Globulin Ratio 1.8 (1.2-2.2); Alkaline Phosphatase 67 U/L (46-116); Anion Gap 8 (7-16); Aspartate Amino Transferase 19 U/L (0-34); BUN/Creatinine Ratio 16 Ratio (12-20); Bilirubin,Total 0.7 mg/dL (0.3-1.2); Blood Urea Nitrogen 13 mg/dL (9-23); Calcium 9.8 mg/dL (8.3-10.6); Calcium (Corrected) 9.8 mg/dL (8.5-10.1); Carbon Dioxide 26.8 mMol/L (20.0-31.0); Cardiac Risk Estimate 4.3 RATIO (4.0-6.7); Chloride 102 mMol/L (98-107); Cholesterol 138 mg/dL (132-200); Creatinine (Component) 0.8 mg/dL (0.6-1.3); Globulin 2.5 gm/dL (2.3-3.5); Glucose 96 mg/dL (74-106); HDL Cholesterol 32 mg/dL (40-60); LDL Cholesterol,Calculated 87 mg/dL (0-130); Magnesium 1.9 mg/dL (1.6-2.6); Osmolality,Calculated 273 (275-295); Phosphorous 4.3 mg/dL (2.4-5.1); Sodium 137 mMol/L (136-145); Total Protein 7.1 gm/dL (5.7-8.2); Triglycerides 97 mg/dL (30-150); eGFR > 60 See Note
[2024-05-28] MEDS: PANTOPRAZOLE INJ 40 MG VIAL IVP (09:53)
[2024-05-28] MEDS: SENNA TABLET 1 TAB PO (09:53)
[2024-05-28] MEDS: Aspirin 325 MG TABLET PO (09:53)
[2024-05-28 10:14] LABS: Thyroid Stimulating Hormone 0.92 uIU/mL (0.55-4.78)
[2024-05-28] MEDS: LORazepam 2 MG/ML VIAL 1 MG IVP (12:23)
[2024-05-28] MEDS: ATORVASTATIN CALCIUM 20 MG TABLET 80 MG PO (20:17)
--- NOTE | 2024-05-28 22:43 | VVPN_ITS ---
Telemedicine visit statement This visit was conducted with the use of phone was obtained on 05/28/24. Documentation for date of: 05/28/24 Subjective Subjective Interval history: Patient is in telemetry. Continue to have speech and language deficit and residual left-sided weakness. No witnessed tonic clonic convulsions reported. Virtual exam Vital Signs Temp Pulse Resp BP Pulse Ox O2 Del Method 98.3 F 88 18 149/72 H 97 Room Air 05/28/24 16:00 05/28/24 20:00 05/28/24 18:41 05/28/24 16:00 05/28/24 18:41 05/28/24 16:00 Objective Labs 05/28/24 07:58 05/28/24 07:58 Labs: Laboratory Results - last 24 hr 05/28/24 07:58 WBC 5.1 RBC 4.80 Hgb 15.6 Hct 44.9 MCV 94 MCH 32.5 MCHC 34.7 RDW Std Deviation 40.8 Plt Count 270 D Neut % (Auto) 62 Lymph % (Auto) 28 [place] % (Auto) 8 Eos % (Auto) 1 Baso % (Auto) 1 Neut # (Auto) 3.2 Lymph # (Auto) 1.4 [place] # (Auto) 0.4 Eos # (Auto) 0.1 Baso # (Auto) 0.1 Immature Gran # (Auto) 0.01 H Absolute Nucleated RBC 0.00 Immature Gran % 0 Nucleated RBC % 0 Sodium 137 Potassium 4.0 Chloride 102 Carbon Dioxide 26.8 Anion Gap 8 BUN 13 Creatinine 0.8 Estim Creat Clear Calc Not Performed. eGFR > 60 BUN/Creatinine Ratio [address] Glu mg/dL 114 Hemoglobin A1c 5.6 Calculated Osmolality 273 L Calcium 9.8 Corrected Calcium 9.8 Phosphorus 4.3 Magnesium 1.9 Total Bilirubin 0.7 AST 19 ALT 51 H Alkaline Phosphatase 67 Total Protein 7.1 Albumin 4.6 Globulin 2.5 Albumin/Globulin Ratio 1.8 Triglycerides 97 Cholesterol 138 LDL Cholesterol, Calc 87 HDL Cholesterol 32 L Cholesterol/HDL Ratio 4.3 TSH 0.92 Assessment & Plan Assessment (1) CVA (cerebral vascular accident): Based on the repeat CT today, hypodensity in the right basal ganglia with compression of frontal horn of the right lateral ventricle. Encephalomalacia in the left parietotemporal area, from stroke from 2020 No hemorrhages noted MRI brain: 18 x 38 mm acute infarct right caudate nucleus and old hge in the right basal ganglia. Occlusion of the left internal carotid artery at the carotid bifurcation; Decreased filling of left middle cerebral artery artery branches Continue with aspirin, but lowered to 81 mg a day along with statin and permissive blood pressure control (2) Altered mental status: Suspect nonconvulsive seizures: With his intermittent upward gaze and nonsensical speech EEG showed questionable slowing in the bitemporal area suspicious for seizures, we will start him on Depakote 500 mg twice a day 3) Hypertension: Continue with the permissive blood pressure control (4) Wernicke's aphasia: Residual deficit following stroke in 2020 and the bleed in April 2024.
[2024-05-28] MEDS: HYDROcodone/APAP 5/325 TABLET 1 TAB PO (23:14)
[2024-05-28] MEDS: DIVALPROEX SOD DR 500 MG TABLET.DR PO (23:14)
[2024-05-29] VITALS (7 sets, daily range): BP systolic 103–118; BP diastolic 74–88; PULSE 76–122; RESP 16–99; TEMP 36.2–36.5; O2SAT 94–99; BMI 27.2
[2024-05-29 06:21] LABS: Basophils # (Auto) 0.1 Thou/mm3 (0.0-0.2); Basophils % (Auto) 1 % (0-2.5); Eosinophils # (Auto) 0.1 Thou/mm3 (0.0-0.5); Eosinophils % (Auto) 2 % (0-10); Hematocrit 44.8 % (41.0-53.0); Hemoglobin 15.8 g/dL (13.5-16.0); Immature Granulocytes % (Auto) 0 % (0-0); Immature Granulocytes Auto 0.01 Thou/mm3 (0.00-0.00); Lymphocytes # (Auto) 1.3 Thou/mm3 (1.0-4.8); Lymphocytes % (Auto) 20 % (10-50); Mean Corpuscular HGB Conc 35.3 g/dl (31.0-37.0); Mean Corpuscular Hemoglobin 32.1 pg (25.0-35.0); Mean Corpuscular Volume 91 fL (80-100); Monocytes # (Auto) 0.5 Thou/mm3 (0.0-0.8); Monocytes % (Auto) 7 % (0-12); Neutrophils # (Auto) 4.5 Thou/mm3 (1.8-7.7); Neutrophils % (Auto) 70 % (37-80); Nucleated Red Blood Cell % 0 /100 WBC (0); Platelet Count 271 Thou/mm3 (140-440); RDW Standard Deviation 39.1 fL (35.1-43.9); Red Blood Count 4.92 Miln/mm3 (4.50-5.90); White Blood Count 6.5 Thou/mm3 (3.8-10.6)
[2024-05-29 07:05] LABS: Alanine Aminotransferase 42 U/L (10-49); Albumin, Serum 4.3 gm/dL (3.5-5.0); Albumin/Globulin Ratio 1.6 (1.2-2.2); Alkaline Phosphatase 64 U/L (46-116); Anion Gap 9 (7-16); Aspartate Amino Transferase 20 U/L (0-34); BUN/Creatinine Ratio 18 Ratio (12-20); Bilirubin,Total 0.6 mg/dL (0.3-1.2); Blood Urea Nitrogen 14 mg/dL (9-23); Calcium 9.4 mg/dL (8.3-10.6); Calcium (Corrected) 9.4 mg/dL (8.5-10.1); Carbon Dioxide 22.9 mMol/L (20.0-31.0); Chloride 103 mMol/L (98-107); Creatinine (Component) 0.8 mg/dL (0.6-1.3); Estimated Creatinine Clearance 100.5 mL/min (>60); Globulin 2.7 gm/dL (2.3-3.5); Glucose 90 mg/dL (74-106); Magnesium 1.7 mg/dL (1.6-2.6); Osmolality,Calculated 270 (275-295); Phosphorous 4.2 mg/dL (2.4-5.1); Sodium 135 mMol/L (136-145); eGFR > 60 See Note
[2024-05-29] MEDS: ASPIRIN EC 81 MG TABEC PO (09:01)
[2024-05-29] MEDS: SENNA TABLET 1 TAB PO (09:02)
[2024-05-29] MEDS: DIVALPROEX SOD DR 500 MG TABLET.DR PO ×2 (09:02→20:02)
[2024-05-29] MEDS: PANTOPRAZOLE INJ 40 MG VIAL IVP (09:02)
--- NOTE | 2024-05-29 09:31 | PC.SS ---
SS follow up note; MRI and Cardiology consult pending.
[2024-05-29] MEDS: APIXABAN 2.5 MG TABLET 5 MG PO (10:28)
--- NOTE | 2024-05-29 14:42 | ESPR_ITS ---
<Statement entered by Ottoniel Rice MD - 05/29/24 15:13> Patient was seen and examined at the bedside. Patient is continues remain confused and not able to answer questions appropriately he is currently AO x 1. Patient was present at bedside reported the patient was better than before however he has never been on his baseline since his last 2 previous strokes. Echocardiogram showed EF 35-45% with LV mural thrombus. MRI brain did show possibly new ischemic CVA. We curb sided with Dr. Dallas, juice packaging machines setter and he recommended to start with anticoagulation Eliquis. Neurology recommended to continue Eliquis 2.5 twice daily given history of brain bleed. Depakote was started for seizures by neurologist. Continue seizure precautions as needed. MRSA screen is pending. Labs were unremarkable. Electrolyte were stable. Magnesium was repleted. Dr. Goel, neurologist recommended that the serial head CT to evaluate for any brain bleeding episode as patient is starting Eliquis now. Will likely closely monitor. All labs and orders were reviewed. I saw and examined the patient, and I agree with current management stated by Dr Maria MD,PGY1. Plan of care was discussed with the attending physician and resident physician. Disclaimer: Despite multiple revisions, due to the dictation software being used, the document bellow may not be free of grammatical errors including phonetic/typographic errors. However, this does not deter from our commitment to providing health care in the patient's best interest in mind. Dr. Dwayne MD, PGY 2 Documentation for date of: 05/29/24 Subjective Subjective Interval history: No overnight events. Patient seen and examined at bedside. Patient awake and alert, appropriate responses to questions. Does not have issue of repeating phrases. However, patient has very poor memory, A&Ox1. Requires repeated prompting to follow some commands. Per mother at bedside notable decline from patient's previous baseline. Initiated Eliquis for left ventricular thrombus. Exam Vital Signs Temp Pulse Resp BP Pulse Ox O2 Del Method 97.3 F 80 18 118/88 H 96 Room Air 05/29/24 12:00 05/29/24 12:00 05/29/24 12:00 05/29/24 12:00 05/29/24 12:05/29/24 12:00 Narrative Exam PE: Gen: Well-developed and well-nourished. HEENT: NCAT, PERRLA, EOMI, MMM, anicteric conjunctivae. CVS: normal S1 and S2. RRR. No M/R/G. Resp: CTA B/L. No rhonchi, rales, crackles or wheezing. Abd: soft, non-tender, non-distended. MSK: Good ROM in BUE & BLE. No edema or rash. Neuro: Strength 4/5 in BUE & BLE. Alert and oriented x1. Needs prompting to follow some commands. Appropriate responses to questions. Extremely forgetful. Psych: appropriate mood and affect. Objective Labs 05/30/24 05:10 05/30/24 05:10 Labs: Laboratory Results - last 24 hr 05/29/24 04:50 WBC 6.5 RBC 4.92 Hgb 15.8 Hct 44.8 MCV 91 MCH 32.1 MCHC 35.3 RDW Std Deviation 39.1 Plt Count 271 Neut % (Auto) 70 Lymph % (Auto) 20 [place] % (Auto) 7 Eos % (Auto) 2 Baso % (Auto) 1 Neut # (Auto) 4.5 Lymph # (Auto) 1.3 [place] # (Auto) 0.5 Eos # (Auto) 0.1 Baso # (Auto) 0.1 Immature Gran # (Auto) 0.01 H Absolute Nucleated RBC 0.00 Immature Gran % 0 Nucleated RBC % 0 Sodium 135 L Potassium 4.0 Chloride 103 Carbon Dioxide 22.9 Anion Gap 9 BUN 14 Creatinine 0.8 Estim Creat Clear Calc 100.5 eGFR > 60 BUN/Creatinine Ratio 18 Glucose 90 Calculated Osmolality 270 L Calcium 9.4 Corrected Calcium 9.4 Phosphorus 4.2 Magnesium 1.7 Total Bilirubin 0.6 AST 20 ALT 42 Alkaline Phosphatase 64 Total Protein 7.0 Albumin 4.3 Globulin 2.7 Albumin/Globulin Ratio 1.6 Quality Measures Quality Measures VTE prophylaxis Assessment & Plan Assessment Current Active Medications: Generic Name Dose Route Start Last Admin Trade Name Freq PRN Reason Stop Dose Admin Acetaminophen 650 mg 05/27/24 21:55 Acetaminophen 325 Mg Tablet PO 06/26/24 21:54 Q6H PRN Fever >100.3 or pain Protocol Hydrocodone Bitart/Acetaminophen 1 tab 05/27/24 21:55 05/28/24 23:14 Hydrocodone/Apap 5/325 Tablet PO 06/01/24 21:54 1 tab Q4HR PRN Administration PAIN SCALE 4-10(Mod-Sev Albuterol/Ipratropium 3 ml 05/27/24 21:55 Albuterol/Ipratropium (Duoneb) Rt Tabitha 3 Ml Nebu INH 06/26/24 21:54 Q2HR PRN SHORTNESS OF BREATH OR WHEEZE Apixaban 5 mg 05/29/24 10:15 05/29/24 10:28 Apixaban 2.5 Mg Tablet PO 06/28/24 10:14 5 mg BID DAVID Administration Aspirin 81 mg 05/29/24 09:00 05/29/24 09:01 Aspirin Ec 81 Mg Tabec PO 06/28/24 08:59 81 mg QDAY DAVID Administration Atorvastatin Calcium 80 mg 05/28/24 21:00 05/28/24 20:17 Atorvastatin Calcium 20 Mg Tablet PO 06/27/24 20:59 80 mg HS DAVID Administration Divalproex Sodium 500 mg 05/28/24 23:00 05/29/24 09:[address] 500 Mg Tablet.Dr PO 06/27/24 22:59 500 mg BID DAVID Administration Lorazepam 2 mg 05/28/24 10:10 Lorazepam 2 Mg/Ml Vial IVP 06/02/24 10:09 Q30MIN PRN Breakthrough seizures Lorazepam 1 mg 05/28/24 10:20 05/28/24 12:23 Lorazepam 2 Mg/Ml Vial IVP 06/02/24 10:19 1 mg X1 PRN Administration Give before MRI Ondansetron HCl 4 mg 05/27/24 21:55 Ondansetron Inj 2 Mg/Ml Inj 2 Ml IV 06/26/24 21:54 Q6H PRN NAUSEA OR VOMITING Protocol Pantoprazole Sodium 40 mg 05/28/24 10:00 05/29/24 09:02 Pantoprazole Inj 40 Mg Vial IVP 06/27/24 09:59 40 mg QDAY DAVID Administration Sennosides 1 tab 05/28/24 09:00 05/29/24 09:02 Senna Tablet PO 06/27/24 08:59 1 tab QDAY DAVID Administration Protocol Plan Patient is a 58-year-old male with past history of essential hypertension, hyperlipidemia, myocardial infarction 2016, LV thrombus 2020, left posterior temporal, occipital and parietal ischemic stroke with hemorrhagic conversion 2020 and hemorrhagic stroke right basal ganglia April 2024. He follows up regularly with juice packaging machines setter Dr. Bonilla in [place], previously he followed up with neurologist Dr. Dennis. Patient presented today with a chief complaint of encephalopathy and admitted to rule out possible causes such as stroke and new onset seizures. #Acute encephalopathy #Acute infarct involving right basal ganglia #New onset seizure Patient presented with altered mental status. He was speaking about peanut butter for 1 hour and did not recognize his own daughter. He was recently admitted to the rehab facility 3 days ago. He had complete right-sided hemianopia, dyslexia, agraphia and aphasia at baseline. CT brain significant for large acute, subacute infarct right basal ganglia. Encephalomalacia noted in left occipital, parietal and temporal lobe. MRI Brain: Acute infarct involving the right caudate nucleus, occlusion left internal carotid artery. Patient passed swallow eval, bedside swallow screen. EEG showed seizure activity and diffuse slowing. On exam patient is able to follow commands, requires repeated prompting for some commands. Answers questions appropriately but very forgetful, often unable to provide answers. Some word finding difficulty. Plan : -Aspiration precautions -Seizure precautions -Neuro checks q 4H -Head of bed elevated to 30 degrees -PT referral placed -PRN Acetaminophen 650mg to avoid hyperthermia -Aspirin 81 mg p.o. daily -Depakote 500 mg p.o. twice daily -Lorazepam 2 Mg IV every 30 minutes as needed if any seizure-like activity > 5 minutes. -Dr Dennis consulted, recommendations appreciated -Patient to follow-up outpatient with juice packaging machines setter Dr. Bonilla for internal carotid artery occlusion. 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 MRI revealed patient has occlusion of left internal carotid artery at carotid bifurcation and decreased filling of left MCA branches. Home medication lisinopril 20 Mg p.o. daily, nicardipine 20 Mg p.o. every 8 hourly, atorvastatin 80 Mg p.o. at bedtime, aspirin 81 Mg p.o. daily. Patient follows up with juice packaging machines setter Dr. Bonilla in [place]. Echo showed left ventricular ejection fraction 35 to 40%, left ventricular thrombus 2.1 x 1.5 cm. Plan: -Resumed home medication atorvastatin 80 Mg p.o. at bedtime -Antihypertensives on hold in light of normotension/hypotension. Day team to decide when to resume. -Aspirin 81 mg p.o. daily -Eliquis 2.5 mg p.o. twice daily Diet: Cardiac GI prophylaxis: Protonix 40 mg IV. daily DVT prophylaxis:SCDs Diet: Cardiac, dysphagia level 3 CODE STATUS: DNR Plan of care discussed with senior resident Dr. Rice PGY?[address] Rosa. Pradeep Sifuentes MD PGY-1 Attending Provider Attestation/Addendum I attest that I was physically present for the evaluation, physical examination, lab and imaging review of the patient with the residents. I discussed the case with the residents and agree with the findings and plans of care as documented above. At bedside today, patient continues to be alert but confused. Unable to answer questions appropriately. Continues to be on aspirin and statin. Has been tolerating dysphagia diet well. Echocardiography revealed 2.1 x 1.5 cm Left ventricular thrombus. Discussed with Cardiology and Neurology, agreed on starting low dose anticoagulation at 2.5mg Eliquis BID. We will obtain head CT in the morning as recommended by neurology to evaluate for hemorrhagic conversion with the start of anticoagulation. Shahzad Rosa MD
[2024-05-29] MEDS: ATORVASTATIN CALCIUM 20 MG TABLET 80 MG PO (20:02)
[2024-05-29] MEDS: APIXABAN 2.5 MG TABLET PO (20:02)
--- NOTE | 2024-05-29 23:09 | PD.NEUROPROG ---
Documentation for date of: 05/29/24 Subjective Subjective Interval history: Patient was seen in telemetry today with his mom at the bedside, significant improvement noted in mental status, close to baseline. Able to communicate very well consistently, tolerating oral diet well. Exam - Neurology Vital Signs Temp Pulse Resp BP Pulse Ox O2 Del Method 97.2 F 86 16 103/74 96 Room Air 05/29/24 20:00 05/29/24 20:00 05/29/24 20:00 05/29/24 20:00 05/29/24 20:00 05/29/24 20:00 Narrative Exam GENERAL APPEARANCE: Well developed, well-nourished white male in no acute distress. HEENT:? Normocephalic, atraumatic, extraocular movements intact.? Pupils:? Equal reacting to light. NECK:? Supple, no JVD or bruits. CARDIOVASULAR:? Heart: S1, S2 heard, regular without S3-S4 or murmur no rubs or gallops. LUNGS/CHEST:? Clear to auscultation bilaterally.? No rails, rhonchi, or wheezing.? Normal inspection. ABDOMEN:? Soft, nontender, with normal bowel sounds.? No pulsatile masses.? No rebound, rigidity, or guarding.? Normal inspection and palpation. EXTREMITIES:? Normal inspection and palpation. No edema, clubbing or cyanosis. SKIN:? Warm and dry without rashes.? Normal inspection. MUSCULOSKELETAL:? No cervical, thoracic, lumbar or midline bony tenderness.? Normal inspection. NEURO: Awake, alert, oriented x2, able to move both upper and lower extremities purposefully and on commands..No pronator drift noted.? Deep tendon reflexes:? 2+ bilaterally symmetrical.? Plantar reflex:? Downgoing bilaterally.? Gait: Walked in the hallway with physical therapy. no signs of meningeal irritation noted.? Rest of the exam: Limited secondary to aphasia PSYCHIATRIC: Mood and affect: Normal Objective Labs 05/29/24 04:50 05/29/24 04:50 Labs: Laboratory Results - last 24 hr 05/29/24 04:50 WBC 6.5 RBC 4.92 Hgb 15.8 Hct 44.8 MCV 91 MCH 32.1 MCHC 35.3 RDW Std Deviation 39.1 Plt Count 271 Neut % (Auto) 70 Lymph % (Auto) 20 [place] % (Auto) 7 Eos % (Auto) 2 Baso % (Auto) 1 Neut # (Auto) 4.5 Lymph # (Auto) 1.3 [place] # (Auto) 0.5 Eos # (Auto) 0.1 Baso # (Auto) 0.1 Immature Gran # (Auto) 0.01 H Absolute Nucleated RBC 0.00 Immature Gran % 0 Nucleated RBC % 0 Sodium 135 L Potassium 4.0 Chloride 103 Carbon Dioxide 22.9 Anion Gap 9 BUN 14 Creatinine 0.8 Estim Creat Clear Calc 100.5 eGFR > 60 BUN/Creatinine Ratio 18 Glucose 90 Calculated Osmolality 270 L Calcium 9.4 Corrected Calcium 9.4 Phosphorus 4.2 Magnesium 1.7 Total Bilirubin 0.6 AST 20 ALT 42 Alkaline Phosphatase 64 Total Protein 7.0 Albumin 4.3 Globulin 2.7 Albumin/Globulin Ratio 1.6 Assessment & Plan Assessment and plan (1) CVA (cerebral vascular accident): Status: Acute Assessment and plan: Based on the repeat CT today, hypodensity in the right basal ganglia with compression of frontal horn of the right lateral ventricle. Encephalomalacia in the left parietotemporal area, from stroke from 2020 MRI brain showed acute infarct in the right basal ganglia with old hemorrhage Echocardiogram: Negative bubble study. Suboptimal images due to patient being unstable. Normal LV size anetrior apical and inferior apical akineis with 2.1x1.5 cm MURAL THROMUS in the apex, Moderate LV dysfunction LVEF 35-40% Normal RV size and function Continue with aspirin 81 mg with Eliquis 2.5 mg twice a day (if agreeable with cardiology as he had hemorrhagic transformation/recent intracerebral hemorrhage in the basal ganglia in April) along with statin and blood pressure control Patient is stable from neurology standpoint for discharge to the rehab after the repeat CT head without contrast today. (2) Altered mental status: Status: Acute Assessment and plan: Suspected nonconvulsive seizures: With his intermittent upward gaze and nonsensical speech EEG showed slowing in the right temporal area, started him on Depakote, which significantly improved his mental status and language function. (3) Hypertension: Status: Acute Assessment and plan: Continue with the permissive blood pressure control (4) Wernicke's aphasia: Status: Chronic Assessment and plan: Improved significantly from admission close to baseline
[2024-05-30] VITALS (10 sets, daily range): BP systolic 105–145; BP diastolic 73–93; PULSE 71–101; RESP 15–96; TEMP 36.1–36.8; O2SAT 94–98; BMI 26.2
--- NOTE | 2024-05-30 06:00 | XR_ITS ---
Examination: CT brain head without contrast. 2-D sagittal coronal reconstructions Date and time of exam:May 30, 2024 at 0857 hours Comparison May 27, 2024 INDICATIONS: Onset confusion beginning May 27, 2024, history hemorrhagic stroke in the right basal ganglia on CT stroke alert brain scan April 26, 2024, larger acute subacute infarct in the right basal ganglia on CT brain scan May 27, 2024 CTDI: vol (mGy):55.6 DLP: (mGycm):1200 Technique: Multiple CT axial sections of the brain have been obtained, 5 mm slice thickness. Contrast has not been administered. 2-D sagittal, coronal reconstructions have been obtained Low dose protocols were performed. One or more of the following dose reduction techniques were used; automated exposure control, adjustment of the mA and/or KV according to patient size, use of iterative reconstruction technique. Findings: Stable size large infarct in the right basal ganglia Axial images 20 through 24 demonstrate minimal areas of hemorrhagic transformation Stable mass effect Stable encephalomalacia posterior left temporal parietal occipital lobe Cranial vault intact IMPRESSION: Stable size large acute infarct in the right basal ganglia Axial images 20 through 24 demonstrate minimal areas of hemorrhagic transformation in this infarct, suggest continued follow-up
[2024-05-30 06:16] LABS: Basophils # (Auto) 0.1 Thou/mm3 (0.0-0.2); Basophils % (Auto) 1 % (0-2.5); Eosinophils # (Auto) 0.1 Thou/mm3 (0.0-0.5); Eosinophils % (Auto) 2 % (0-10); Hematocrit 42.3 % (41.0-53.0); Immature Granulocytes % (Auto) 0 % (0-0); Immature Granulocytes Auto 0.01 Thou/mm3 (0.00-0.00); Lymphocytes # (Auto) 1.1 Thou/mm3 (1.0-4.8); Lymphocytes % (Auto) 23 % (10-50); Mean Corpuscular HGB Conc 35.5 g/dl (31.0-37.0); Mean Corpuscular Hemoglobin 32.1 pg (25.0-35.0); Mean Corpuscular Volume 91 fL (80-100); Monocytes # (Auto) 0.5 Thou/mm3 (0.0-0.8); Monocytes % (Auto) 10 % (0-12); Neutrophils % (Auto) 64 % (37-80); Nucleated Red Blood Cell % 0 /100 WBC (0); Platelet Count 263 Thou/mm3 (140-440); RDW Standard Deviation 38.8 fL (35.1-43.9); Red Blood Count 4.67 Miln/mm3 (4.50-5.90); White Blood Count 4.7 Thou/mm3 (3.8-10.6)
[2024-05-30 07:03] LABS: Alanine Aminotransferase 33 U/L (10-49); Albumin, Serum 4.5 gm/dL (3.5-5.0); Alkaline Phosphatase 59 U/L (46-116); Anion Gap 8 (7-16); Aspartate Amino Transferase 14 U/L (0-34); BUN/Creatinine Ratio 15 Ratio (12-20); Bilirubin,Total 0.6 mg/dL (0.3-1.2); Blood Urea Nitrogen 12 mg/dL (9-23); Calcium 9.2 mg/dL (8.3-10.6); Calcium (Corrected) 9.2 mg/dL (8.5-10.1); Carbon Dioxide 24.1 mMol/L (20.0-31.0); Chloride 102 mMol/L (98-107); Creatinine (Component) 0.8 mg/dL (0.6-1.3); Estimated Creatinine Clearance 91.9 mL/min (>60); Globulin 2.3 gm/dL (2.3-3.5); Glucose 96 mg/dL (74-106); Magnesium 1.8 mg/dL (1.6-2.6); Osmolality,Calculated 267 (275-295); Phosphorous 3.5 mg/dL (2.4-5.1); Potassium 4.2 mMol/L (3.4-5.1); Sodium 134 mMol/L (136-145); Total Protein 6.8 gm/dL (5.7-8.2); eGFR > 60 See Note
[2024-05-30] MEDS: APIXABAN 2.5 MG TABLET PO (09:33)
[2024-05-30] MEDS: ASPIRIN EC 81 MG TABEC PO (09:33)
[2024-05-30] MEDS: SENNA TABLET 1 TAB PO (09:33)
[2024-05-30] MEDS: Magnesium Sulfate 2 GM Ivpb 2 GM/50 ML BAG IV (09:34)
[2024-05-30] MEDS: DIVALPROEX SOD DR 500 MG TABLET.DR PO (09:34)
[2024-05-30] MEDS: PANTOPRAZOLE INJ 40 MG VIAL IVP (09:34)
[2024-05-30] MEDS: DIVALPROEX SOD 125 MG SPRINKLE 250 MG PO (09:53)
--- NOTE | 2024-05-30 13:52 | PC.SS ---
SS follow up note; Cardiac consult pending. pending CT.
--- NOTE | 2024-05-30 15:13 | PC.SS ---
Addendum entered by Trish Ron 05/30/24 16:18: SS follow up note; [facility] contacted [facility] and ETA is set up for 1800. SS notified community health worker Adriana. Addendum entered by Trish Ron 05/30/24 15:51: SS follow up note; SS updated patient's nurse Rambo in regards to patient discharging back to [facility] on hospice services. [facility] requesting for transportation to be set up for 1800. provided [facility] nurses station contact number and updated community health worker Ranye. Addendum entered by Trish Ron 05/30/24 15:43: SS was contacted by Yesenia from [facility], she informed SS that patient is able to discharge back to [facility] on hospice services. SS informed patient's mother, Nuria that [facility] accepted patient. set up transportation through [facility],Reference #[id number]. Original Note: SS was present during the goals of care meeting with patient's mother, Nuria. Dr. Rice and Dr. Hammond who were also were also present. discussed pt medical condition to mother. SS also provided d/c options for home or SNF if they decide on Hospice Services. Patient's mother reported patient would need to return to [facility] on hospice. SS informed patient's mother that patient would qualify for SNF with hospice, however would need to contact [facility] to determine if they are able to accept patient under hospice services. Hospice choice was provided and patient's mother would like [facility]. submitted hospice referral through [facility] and contacted Yesenia from [facility] to determine if patient could discharge back on hospice care. Yesenia reported she would have to discuss with her admin and would contact back with response. SS will stand by for further needs.
--- NOTE | 2024-05-30 15:14 | PD.RESPRO ---
Documentation for date of: 05/30/24 Subjective Subjective Interval history: No overnight events. Patient seen and examined at bedside. Patient notably altered compared to yesterday. Decreased comprehension, increased distractibility. Only follows some commands. Worse memory. CT showed hemorrhagic conversion of stroke. Aspirin and eliquis held, depakote increased. Goals of care conversation held with patient's mother, patient will be placed on hospice. Exam Vital Signs Temp Pulse Resp BP Pulse Ox O2 Del Method 98.2 F 83 16 118/84 98 Room Air 05/30/24 12:00 05/30/24 12:00 05/30/24 12:00 05/30/24 12:00 05/30/24 12:00 05/30/24 12:00 Narrative Exam PE: Gen: Well-developed and well-nourished. HEENT: NCAT, PERRLA, EOMI, MMM, anicteric conjunctivae. CVS: normal S1 and S2. RRR. No M/R/G. Resp: CTA B/L. No rhonchi, rales, crackles or wheezing. Abd: soft, non-tender, non-distended. MSK: Good ROM in BUE & BLE. No edema or rash. Neuro: Strength 4/5 in BUE & BLE. Alert and oriented x1. Extremely forgetful, worsened. Nonsensical responses to questions. Rarely follows commands. Extremely distractable. Objective Labs 05/30/24 05:10 05/30/24 05:10 Labs: Laboratory Results - last 24 hr 05/30/24 05:10 WBC 4.7 RBC 4.67 Hgb 15.0 Hct 42.3 MCV 91 MCH 32.1 MCHC 35.5 RDW Std Deviation 38.8 Plt Count 263 Neut % (Auto) 64 Lymph % (Auto) 23 [place] % (Auto) 10 Eos % (Auto) 2 Baso % (Auto) 1 Neut # (Auto) 3.0 Lymph # (Auto) 1.1 [place] # (Auto) 0.5 Eos # (Auto) 0.1 Baso # (Auto) 0.1 Immature Gran # (Auto) 0.01 H Absolute Nucleated RBC 0.00 Immature Gran % 0 Nucleated RBC % 0 Sodium 134 L Potassium 4.2 Chloride 102 Carbon Dioxide 24.1 Anion Gap 8 BUN 12 Creatinine 0.8 Estim Creat Clear Calc 91.9 eGFR > 60 BUN/Creatinine Ratio 15 Glucose 96 Calculated Osmolality 267 L Calcium 9.2 Corrected Calcium 9.2 Phosphorus 3.5 Magnesium 1.8 Total Bilirubin 0.6 AST 14 ALT 33 Alkaline Phosphatase 59 Total Protein 6.8 Albumin 4.5 Globulin 2.3 Albumin/Globulin Ratio 2.0 Quality Measures Quality Measures VTE prophylaxis Assessment & Plan Assessment Current Active Medications: Generic Name Dose Route Start Last Admin Trade Name Freq PRN Reason Stop Dose Admin Acetaminophen 650 mg 05/27/24 21:55 Acetaminophen 325 Mg Tablet PO 06/26/24 21:54 Q6H PRN Fever >100.3 or pain Protocol Hydrocodone Bitart/Acetaminophen 1 tab 05/27/24 21:55 05/28/24 23:14 Hydrocodone/Apap 5/325 Tablet PO 06/01/24 21:54 1 tab Q4HR PRN Administration PAIN SCALE 4-10(Mod-Sev Albuterol/Ipratropium 3 ml 05/27/24 21:55 Albuterol/Ipratropium (Duoneb) Rt Tabitha 3 Ml Nebu INH 06/26/24 21:54 Q2HR PRN SHORTNESS OF BREATH OR WHEEZE Aspirin 81 mg 05/29/24 09:00 05/30/24 09:33 Aspirin Ec 81 Mg Tabec PO 06/28/24 08:59 81 mg QDAY DAVID Administration Atorvastatin Calcium 80 mg 05/28/24 21:00 05/29/24 20:02 Atorvastatin Calcium 20 Mg Tablet PO 06/27/24 20:59 80 mg HS DAVID Administration Divalproex Sodium 750 mg 05/30/24 21:00 Divalproex Sod 125 Mg Sprinkle PO 06/29/24 20:59 BID DAVID Lorazepam 2 mg 05/28/24 10:10 Lorazepam 2 Mg/Ml Vial IVP 06/02/24 10:09 Q30MIN PRN Breakthrough seizures Lorazepam 1 mg 05/28/24 10:20 05/28/24 12:23 Lorazepam 2 Mg/Ml Vial IVP 06/02/24 10:19 1 mg X1 PRN Administration Give before MRI Ondansetron HCl 4 mg 05/27/24 21:55 Ondansetron Inj 2 Mg/Ml Inj 2 Ml IV 06/26/24 21:54 Q6H PRN NAUSEA OR VOMITING Protocol Pantoprazole Sodium 40 mg 05/28/24 10:00 05/30/24 09:34 Pantoprazole Inj 40 Mg Vial IVP 06/27/24 09:59 40 mg QDAY DAVID Administration Sennosides 1 tab 05/28/24 09:00 05/30/24 09:33 Senna Tablet PO 06/27/24 08:59 1 tab QDAY DAVID Administration Protocol Plan Patient is a 58-year-old male with past history of essential hypertension, hyperlipidemia, myocardial infarction 2016, LV thrombus 2020, left posterior temporal, occipital and parietal ischemic stroke with hemorrhagic conversion 2020 and hemorrhagic stroke right basal ganglia April 2024. He follows up regularly with portfolio accountant Dr. Bonilla in [place], previously he followed up with neurologist Dr. Dennis. Patient presented today with a chief complaint of encephalopathy and admitted to rule out possible causes such as stroke and new onset seizures. #Acute encephalopathy #New onset seizure #Ischemic stroke right caudate nucleus, hemorrhagic conversion. Patient presented with altered mental status. He was speaking about peanut butter for 1 hour and did not recognize his own daughter. He was recently admitted to the rehab facility 3 days ago. He had complete right-sided hemianopia, dyslexia, agraphia and aphasia at baseline. CT brain significant for large acute, subacute infarct right basal ganglia. Encephalomalacia noted in left occipital, parietal and temporal lobe. MRI Brain: Acute infarct involving the right caudate nucleus, occlusion left internal carotid artery. Patient passed swallow eval, bedside swallow screen. EEG showed seizure activity and diffuse slowing. On exam patient is able to follow commands, requires repeated prompting for some commands. Answers questions appropriately but very forgetful, often unable to provide answers. Some word finding difficulty. Patient acutely worsened overnight. CT head showed hemorrhagic conversion of new stroke. Aspirin and eliquis held. Goals of care conversation held with patient's mother, patient will be placed on hospice. Plan : -Aspiration precautions -Seizure precautions -PRN Acetaminophen 650mg to avoid hyperthermia -Depakote 750 mg p.o. twice daily -Lorazepam 2 Mg IV every 30 minutes as needed if any seizure-like activity > 5 minutes. 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 MRI revealed patient has occlusion of left internal carotid artery at carotid bifurcation and decreased filling of left MCA branches. Home medication lisinopril 20 Mg p.o. daily, nicardipine 20 Mg p.o. every 8 hourly, atorvastatin 80 Mg p.o. at bedtime, aspirin 81 Mg p.o. daily. Patient follows up with portfolio accountant Dr. Bonilla in [place]. Echo showed left ventricular ejection fraction 35 to 40%, left ventricular thrombus 2.1 x 1.5 cm. Patient found to have hemorrhagic conversion of stroke. Goals of care conversation held with mother, patient placed on hospice care. Plan: -holding unnecessary medications. Diet: Cardiac GI prophylaxis: Protonix 40 mg IV. daily DVT prophylaxis:SCDs Diet: Cardiac, dysphagia level 3 CODE STATUS: DNR Plan of care discussed with senior resident Dr. Rice PGY?[address] Lopez. Pradeep Sifuentes MD PGY-1
--- NOTE | 2024-05-30 15:42 | PD.RESEVENT ---
Documentation for date of: 05/30/24 Event Note Event Note: Goals of care conversation held with patient's mother. Patient acutely worsened overnight, decreased neurological status. Head CT showed hemorrhagic conversion of stroke. Anticoagulation treatment was held, which means LV thrombus cannot be treated. This was explained to patient's mother, who showed good understanding of the patient's condition. She exprerssed that patient would not want to continue in his current condition, and as such elected to place patient on hospice care. Pradeep Sifuentes MD PGY?1
--- NOTE | 2024-05-30 16:52 | ESDS_ITS ---
<Statement entered by Ottoniel Rice MD - 05/30/24 18:43> I saw and examined the patient, and I agree with current management stated by Dr Maria GORMAN,PGY1. Plan of care was discussed with the attending physician and resident physician. Disclaimer: Despite multiple revisions, due to the dictation software being used, the document bellow may not be free of grammatical errors including phonetic/typographic errors. However, this does not deter from our commitment to providing health care in the patient's best interest in mind. Dr. Dwayne MD, PGY 2 Planned Discharge Date 05/30/24 DS: Providers Provider Date of admission: 05/27/24 21:55 Primary care physician: Physician No Primary/Family Admitting Provider: Rigo Boyd MD Attending Provider on Admission: Luis Eduardo Lopez DO Consults: 05/27/24 22:07 PT [Referral Physical Therapy] Urgent Comment: Physician Instructions: Instructions: Stroke rule out 05/27/24 22:09 Consult to Neurology / Tele-Neurology Stat Comment: Stroke rule out. Rule out New onset seizures Consulting Provider: Rolf Dennis 05/30/24 15:04 Referral Hospice Stat Comment: Attending Provider on DC: Luis Eduardo Lopez DO Discharging Provider: Pradeep Sifuentes MD DS: Diagnosis Problem List Completed Was Problem List Reviewed/Reconciled?: Yes Hospital Course Hospital Course Hospital course: 58-year-old male with past history of essential hypertension, hyperlipidemia, myocardial infarction 2016, LV thrombus 2020, left posterior temporal, occipital and parietal ischemic stroke with hemorrhagic conversion 2020 and hemorrhagic stroke right basal ganglia April 2024 presented to ED from SNF with chief complaint of altered mental status.. He follows up regularly with purchasing department clerk Dr. Bonilla in [place], previously he followed up with neurologist Dr. Dennis. According to patient's mother, he was at the acute rehab facility, [facility][1] and he began to have abnormal speech, increased forgetfulness. EEG showed seizure activity, patient started Depakote. MRI showed new acute stroke of right caudate nucleus. Echo showed left ventricular thrombus. After consultation with cardiology and neurology, patient was started on low-dose Eliquis for left ventricular thrombus. Follow-up head CT showed hemorrhagic conversion of acute stroke. Patient had acute decline in mental status, increased forgetfulness and decreased comprehension. After extensive goals of care discussion with patient's mother, decision was made to place patient on hospice in line with patient's values and wishes. Patient stable and cleared for discharge to SNF with hospice. Discharge plan: Patient is being placed on hospice care. Stop the following medications: Aspirin, eliquis, atorvastatin, lisinopril Please continue taking divalproes 750mg twice daily Please take all other meds as previously prescribed. 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 Rice PGY?[address] Lopez. Pradeep Sifuentes MD PGY?1 Status at Discharge Overall status at discharge: patient is not back to baseline Time Spent with Patient Time attestation: Total time spent providing and/or coordinating discharge services: Exam Vital Signs Temp Pulse Resp BP Pulse Ox O2 Del Method 98.0 F 83 19 117/73 96 Room Air 05/30/24 15:41 05/30/24 15:41 05/30/24 15:41 05/30/24 15:41 05/30/24 15:41 05/30/24 15:41 Narrative Exam PE: Gen: Well-developed and well-nourished. HEENT: NCAT, PERRLA, EOMI, MMM, anicteric conjunctivae. CVS: normal S1 and S2. RRR. No M/R/G. Resp: CTA B/L. No rhonchi, rales, crackles or wheezing. Abd: soft, non-tender, non-distended. MSK: Good ROM in BUE & BLE. No edema or rash. Neuro: Strength 4/5 in BUE & BLE. Alert and oriented x1. Extremely forgetful, worse. Increased distractibility. Follows some commands. Nonsensical answers to questions. Psych: appropriate mood and affect. Discharge Plan Plan Patient Disposition: Xfer Skilled Nsg Fac (SNF) Disposition Comment: Stable at signout Patient condition on transfer: Stable Care Plan Goals: Patient is being placed on hospice care. Stop the following medications: Aspirin, eliquis, atorvastatin, lisinopril Please continue taking divalproes 750mg twice daily Please take all other meds as previouslyy prescribed. Prescriptions/Referrals Prescriptions/Med Rec: New sennosides [Senna Lax] 8.6 mg Tablet 8.6 mg PO QDAY PRN (Reason: constipation) 30 Days Qty: 30 0RF divalproex 250 mg tablet extended release 24 hr 750 mg PO BID 30 Days Qty: 180 0RF Continued carvedilol 3.125 mg tablet 3.125 mg PO BID Patient Comments: TAKE 1 TABLET BY MOUTH TWICE A DAY WITH MEALS INSTRUCTIONS: DO NOT TAKE IF HEART RATE UNDER 60 Discontinued aspirin 325 mg Tablet,Delayed Release (Dr/Ec) 325 mg PO QDAY clonidine 0.1 mg/24 hr Patch Weekly 0.1 mg TOPICAL QWEEK Rx Instructions: EVERY BELLO divalproex [Depakote] 250 mg Tablet,Delayed Release (Dr/Ec) 250 mg PO HS Rx Instructions: IN THE EVENING atorvastatin 40 mg tablet 80 mg PO HS lisinopril 20 mg tablet 20 mg PO DAILY Patient Comments: TAKE 1 TABLET BY MOUTH EVERY DAY metformin 500 mg tablet 500 mg PO HS Patient Comments: TAKE 1 TABLET BY MOUTH EVERY DAY WITH MEALS nicardipine 20 mg Capsule 20 mg PO Q8HR morphine 10 mg/5 mL Solution 1 mg PO Q4H PRN (Reason: Severe Pain (Scale Score 7-10)) Rx Instructions: FOR 30 DAYS- END DATE 06/24/2024 Referrals: No Primary/Family,Physician [Primary Care Provider] - Rolf Dennis MD [Physician] - Patient/Caregiver Discharge Instructions Education Materials: Stroke Mood Swings Depression, Stroke: Resources and Support, Stroke: Self-Care, Discharge Instructions for Stroke Print Language: Mohawk Stand Alone Forms: [facility]annan Award Info., Patient Portal Info Letter Discharge Order Discharge Orders: Discharge (Routine); Ordered 05/30/24 Ordered By: Pradeep Sifuentes Quality Discharge Quality Measures VTE prophylaxis Attestestation Attestation I have discussed and was present for the essential components of the discharge history, physical examination, diagnosis, and discharge treatment plan with the resident. I agree with the patient's discharge care as documented by the resident and amended herein by me. Flaquito Lopez DO. All DC instructions discussed with the patient's mother who agreed with hospice care at this time, patient will be discharged today for hospice at the SNF facility. Although this document has been carefully reviewed, there may still be some phonetic and other typographical errors. These errors are purely grammatical due to imperfections in the software program and should not be construed in any way to compromise the substance of the patient's medical care during this visit.
--- NOTE | 2024-05-30 19:45 | PC.NURSE ---
Recieved call from shakila Buckner, at [facility] asking status of patient transfer back to [facility], was told in report awaiting transport set up from [facility] that was scheduled at 1800, now after 1900 and unknown status of [facility], Mom of patient had requested [facility] and call to [facility] reported no record of patient scheduled for [facility]. While trying to find a way to contact [facility] for further information, recieved call from Admissions department of [facility] asking RN to call doctors and cancel discharge as it was too late to wait for transport arrangements and accept transfer. MD, Dr Alejo, called and notified of situation with problem with transportation set up for patient and patient to stay until tomorrow to arrange transport and transfer for patient to return to [facility] on Hospice and MD aware. Notified Mom of patient at bedside of cancellation until the morning and Admission department of [facility] (Sita from Admit [phone]) notified. She will be the point of contact to make arrangements for transfer in the morning.
[2024-05-30] MEDS: DIVALPROEX SOD 125 MG SPRINKLE 750 MG PO (20:42)
--- NOTE | 2024-05-30 23:51 | PD.NEUROPROG ---
Documentation for date of: 05/30/24 Subjective Subjective Interval history: Patient was seen in telemetry today with his mom at the bedside, there is some delay in response to questions. Not as good as yesterday. He did not ambulate today. Tolerating oral diet well. Denies any headache or dizziness. Exam - Neurology Vital Signs Temp Pulse Resp BP Pulse Ox O2 Del Method 97.0 F 94 18 105/76 97 Room Air 05/30/24 19:54 05/30/24 19:54 05/30/24 19:54 05/30/24 19:54 05/30/24 19:54 05/30/24 19:54 Narrative Exam GENERAL APPEARANCE: Well developed, well-nourished white male in no acute distress. HEENT:? Normocephalic, atraumatic, extraocular movements intact.? Pupils:? Equal reacting to light. NECK:? Supple, no JVD or bruits. CARDIOVASULAR:? Heart: S1, S2 heard, regular without S3-S4 or murmur no rubs or gallops. LUNGS/CHEST:? Clear to auscultation bilaterally.? No rails, rhonchi, or wheezing.? Normal inspection. ABDOMEN:? Soft, nontender, with normal bowel sounds.? No pulsatile masses.? No rebound, rigidity, or guarding.? Normal inspection and palpation. EXTREMITIES:? Normal inspection and palpation. No edema, clubbing or cyanosis. SKIN:? Warm and dry without rashes.? Normal inspection. MUSCULOSKELETAL:? No cervical, thoracic, lumbar or midline bony tenderness.? Normal inspection. NEURO: Awake, alert, oriented x2, able to move both upper and lower extremities purposefully and on commands..No pronator drift noted.? Deep tendon reflexes:? 2+ bilaterally symmetrical.? Plantar reflex:? Downgoing bilaterally.? Gait: Walked in the hallway with physical therapy yesterday but not today. no signs of meningeal irritation noted.? Rest of the exam: Limited secondary to aphasia PSYCHIATRIC: Mood and affect: Normal Objective Labs 05/30/24 05:10 05/30/24 05:10 Labs: Laboratory Results - last 24 hr 05/30/24 05:10 WBC 4.7 RBC 4.67 Hgb 15.0 Hct 42.3 MCV 91 MCH 32.1 MCHC 35.5 RDW Std Deviation 38.8 Plt Count 263 Neut % (Auto) 64 Lymph % (Auto) 23 [place] % (Auto) 10 Eos % (Auto) 2 Baso % (Auto) 1 Neut # (Auto) 3.0 Lymph # (Auto) 1.1 [place] # (Auto) 0.5 Eos # (Auto) 0.1 Baso # (Auto) 0.1 Immature Gran # (Auto) 0.01 H Absolute Nucleated RBC 0.00 Immature Gran % 0 Nucleated RBC % 0 Sodium 134 L Potassium 4.2 Chloride 102 Carbon Dioxide 24.1 Anion Gap 8 BUN 12 Creatinine 0.8 Estim Creat Clear Calc 91.9 eGFR > 60 BUN/Creatinine Ratio 15 Glucose 96 Calculated Osmolality 267 L Calcium 9.2 Corrected Calcium 9.2 Phosphorus 3.5 Magnesium 1.8 Total Bilirubin 0.6 AST 14 ALT 33 Alkaline Phosphatase 59 Total Protein 6.8 Albumin 4.5 Globulin 2.3 Albumin/Globulin Ratio 2.0 Assessment & Plan Assessment and plan (1) CVA (cerebral vascular accident): Status: Acute Assessment and plan: Based on the repeat CT today, hypodensity in the right basal ganglia with compression of frontal horn of the right lateral ventricle. Encephalomalacia in the left parietotemporal area, from stroke from 2020 MRI brain showed acute infarct in the right basal ganglia with old hemorrhage Echocardiogram: Negative bubble study. Suboptimal images due to patient being unstable. Normal LV size anetrior apical and inferior apical akineis with 2.1x1.5 cm MURAL THROMUS in the apex, Moderate LV dysfunction LVEF 35-40% Normal RV size and function Discontinue aspirin and Eliquis for now as the repeat CT showed mild hemorrhagic transformation in the right basal ganglia Recommend repeat CT tomorrow. Patient's mother agreed for hospice care, potential transfer to rehab with hospice later this evening. (2) Altered mental status: Status: Acute Assessment and plan: Suspected nonconvulsive seizures: With his intermittent upward gaze and nonsensical speech EEG showed slowing in the right temporal area, started him on Depakote, which significantly improved his mental status and language function. (3) Hypertension: Status: Acute Assessment and plan: Continue with the permissive blood pressure control (4) Wernicke's aphasia: Status: Chronic Assessment and plan: Improved significantly from admission close to baseline
[2024-05-31] VITALS: BP 124/84; PULSE 70; PULSE 73; RESP 20; TEMP 36.3; O2SAT 96
--- NOTE | 2024-05-31 01:45 | PC.NURSE ---
Multiple calls from [facility] tele monitor, pt restless, taking off monitor, gown, blankets, pt very forgetful and confused, re-oriented multiple times, unable to rest despite being tired. reports to be cold but takes off blankets. Unable to sleep, , called and notified, awaiting orders.
--- NOTE | 2024-05-31 02:27 | PC.NURSE ---
Finally recieve orders for patient from MD for agitation, tele monitor called while on phone with MD to report pt had a run of 5 PVCs, MD notified, patient calm at this time, resting with blanket over head, PVC's resolved at this time, medication for agitation will be give if patient becomes agitated again.
[2024-05-31] MEDS: QUEtiapine FUMARATE 25 MG TABLET PO (03:21)
[2024-05-31 04:00] VITALS: BP 124/67; PULSE 83; PULSE 85; RESP 19; TEMP 36.3; O2SAT 94
[2024-05-31 05:49] VITALS: BMI 26.2
[2024-05-31 07:32] VITALS: PULSE 80; RESP 18; O2SAT 93
[2024-05-31 08:00] VITALS: BP 126/78; PULSE 75; PULSE 88; RESP 19; TEMP 36.4; O2SAT 98
--- NOTE | 2024-05-31 08:34 | PC.SS ---
MATRIX SUPERVISOR returned call from [facility] staff, Sita ([phone]); stating that patient's mother will be home to receive patient after 12:00 pm. Nai Buckner; will be hospice's designated point of contact. MATRIX SUPERVISOR updated turnaround planner.
--- NOTE | 2024-05-31 08:41 | PC.SS ---
Addendum entered by Estela Roblero 05/31/24 09:56: SS received a call from Kathy at [facility] stating they would need a new reference #. SS contacted [facility] spoke to Goodwin and ref#[id number] was provided. SS requested [facility], pending release to [facility] to set up ETA Original Note: SS spoke to Shahzad LOPEZ in regards to [facility], SS called [facility] and spoke to Fay. SS informed mike transport was set up through [facility] and then Trish, PAIGE spoke to [facility] to for ETA of 1800. Per Fay she can not find information, she will look into it and call SS back.
[2024-05-31] MEDS: PANTOPRAZOLE INJ 40 MG VIAL IVP (08:49)
[2024-05-31] MEDS: SENNA TABLET 1 TAB PO (08:50)
[2024-05-31] MEDS: DIVALPROEX SOD 125 MG SPRINKLE 750 MG PO (08:50)
== END 2024-05-31 12:30 | disposition skilled nursing facility (03) | DRG 64 ==
LOC: SERX 19:17 → SERHOLD 23:01 → S2NX 05-28 04:42
PROVIDERS: Emergency Medicine; Admitting Provider Internal Medicine; Emergency Provider Emergency Medicine; Visit Provider Student in an Organized Health Care Education/Training Program
DX: I63.9 Cerebral infarction, unspecified (principal); I61.9 Nontraumatic intracerebral hemorrhage, unspecified; G93.40 Encephalopathy, unspecified; I69.354 Hemiplegia and hemiparesis following cerebral infarction affecting left non-dominant side; R47.01 Aphasia; I10 Essential (primary) hypertension; E78.5 Hyperlipidemia, unspecified; I25.2 Old myocardial infarction; R48.0 Dyslexia and alexia; R48.8 Other symbolic dysfunctions; R29.706 NIHSS score 6; Z66 Do not resuscitate; Z74.01 Bed confinement status; G93.89 Other specified disorders of brain; I45.10 Unspecified right bundle-branch block; I51.3 Intracardiac thrombosis, not elsewhere classified; I65.22 Occlusion and stenosis of left carotid artery; R56.9 Unspecified convulsions; I95.9 Hypotension, unspecified; I69.320 Aphasia following cerebral infarction; H53.461 Homonymous bilateral field defects, right side; I69.398 Other sequelae of cerebral infarction; Z79.82 Long term (current) use of aspirin; Z79.899 Other long term (current) drug therapy; Z51.5 Encounter for palliative care
CPT/HCPCS: 36415; 70450; 70544; 80053; 80061; 80307; 81001; 83036; 83735; 84100; 84443; 85025; 85610; 85730; 87081; 87811; 92507; 92610; 93005; 93306; 94664; 95816; 97162; 99291; J2060; J2470; J3475; A9270

== ENCOUNTER 2024-06-09 17:42 | Inpatient (IN) | payer MEDICARE, MEDICAID, SELFPAY ==
[2024-06-09] VITALS (26 sets, daily range): BP systolic 100–134; BP diastolic 65–90; PULSE 61–90; RESP 11–98; TEMP 37.4; O2SAT 89–99; BMI 23.6
--- NOTE | 2024-06-09 17:50 | PC.NURSE ---
PT BROUGHT IN BY EMS WITH C/O LEFT ARM WEAKNESS AND LEFT FACIAL DROOP. PER EMS PT LEFT ARM WEAKNESS IS FROM PREVIOUS STROKE BUT PER FAMILY REPORT TO THEM THE FACIAL DROOP IS NEW. UNKNOWN LAST KNOWN WELL.
--- NOTE | 2024-06-09 17:50 | PC.NURSE ---
STROKE ALERT CALLED. PT TO CT AT THIS TIME
--- NOTE | 2024-06-09 17:52 | EKG_ITS ---
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
--- NOTE | 2024-06-09 17:52 | XR_ITS ---
Examination: CT brain head without contrast. 2-D sagittal coronal reconstructions Date and time of exam:June 09, 2024 at 1757 hrs. Indications: Stroke alert, onset left-sided facial droop and weakness today, onset confusion beginning May 27, 2024, history hemorrhagic stroke in the right basal ganglia on CT stroke alert brain scan April 26, 2024 subacute infarct right basal ganglia CTDI: vol (mGy):54.2 DLP: (mGycm):1220 Technique: Multiple CT axial sections of the brain have been obtained, 5 mm slice thickness. Contrast has not been administered. 2-D sagittal, coronal reconstructions have been obtained Low dose protocols were performed. One or more of the following dose reduction techniques were used; automated exposure control, adjustment of the mA and/or KV according to patient size, use of iterative reconstruction technique. Findings: Subacute infarct in the right basal ganglia without definite hemorrhage Large old infarct left posterior parietal occipital lobe, old infarct right frontal lobe No acute hemorrhage either intra or extra-axial Cranial vault intact Impression: Subacute infarct right basal ganglia again noted No interval acute hemorrhage or mass effect Recommend repeat brain MRI follow-up, stroke protocol
--- NOTE | 2024-06-09 17:52 | XR_ITS ---
Examination: CTA carotids with intravenous contrast CTA brain, head with intravenous contrast. 2-D sagittal, coronal reconstructions. 3-D reconstructions. Exam date and time: June 09, 2024 1812 hrs. Comparison April 26, 2024 Indications: Stroke alert, onset loss of fascial weakness today CTDI: vol (mGy) 16.8 DLP: (mGycm) 465 Technique: Multiple CTA axial brain, head carotid images post intravenous contrast injection 100 cc, Isovue-[id number]. 2-D sagittal, coronal reconstructions. 3-D reconstructions, 3-D post processing including vascular maximum intensity projection images. Low dose protocols were performed. One or more of the following dose reduction techniques were used; automated exposure control, adjustment of the mA and/or KV according to patient size, use of iterative reconstruction technique. Findings: Again noted occlusion of the left internal carotid artery at the carotid bifurcation, no filling distally including no filling of the petrous portion of the internal carotid artery No significant stenosis right common carotid artery carotid bifurcation or internal carotid artery Dominant left vertebral artery No filling of the internal carotid artery on the left and supraclinoid portions Collateral filling of the left middle cerebral artery, satisfactory filling right middle cerebral artery with no large vessel occlusions anterior cerebral basilar artery posterior cerebral branches Impression: Again noted occlusion left internal carotid artery at the bifurcation, no filling in the petrous portion juxtasellar supraclinoid portions of the left internal carotid artery Collateral filling of middle cerebral artery branches on the left No cerebral large vessel occlusions Impression: Again noted occlusion left internal carotid artery at the carotid bifurcation with no filling distally Collateral filling of left middle cerebral artery M1 segment and trifurcation vessels
--- NOTE | 2024-06-09 17:55 | PC.NURSE ---
TELE NEUROLOGIST DR HINOJOSA ASSESSING PT AT THIS TIME.
--- NOTE | 2024-06-09 17:55 | EDRME_ITS ---
Rapid Medical Screening Exam RME Arrival date/time: 06/09/24 17:42 Chief Complaint: Weakness RME Narrative: 58 year old male with past medical history significant for CVA in 2020 and on 04/26/2024 presents to the Emergency Department BIB with complaint of left s ided weakness, according to family. Symptoms are moderate. Stroke alert initiated at 1750. Orders made at this time are congruent stroke protocol.
[2024-06-09 18:23] LABS: Basophils % (Auto) 1 % (0-2.5); Eosinophils # (Auto) 0.1 Thou/mm3 (0.0-0.5); Eosinophils % (Auto) 1 % (0-10); Hematocrit 37.8 % (41.0-53.0); Immature Granulocytes % (Auto) 0 % (0-0); Immature Granulocytes Auto 0.02 Thou/mm3 (0.00-0.00); Lymphocytes # (Auto) 1.1 Thou/mm3 (1.0-4.8); Lymphocytes % (Auto) 15 % (10-50); Mean Corpuscular HGB Conc 34.4 g/dl (31.0-37.0); Mean Corpuscular Hemoglobin 32.1 pg (25.0-35.0); Mean Corpuscular Volume 93 fL (80-100); Monocytes # (Auto) 0.7 Thou/mm3 (0.0-0.8); Monocytes % (Auto) 9 % (0-12); Neutrophils # (Auto) 5.7 Thou/mm3 (1.8-7.7); Neutrophils % (Auto) 74 % (37-80); Nucleated Red Blood Cell % 0 /100 WBC (0); Platelet Count 193 Thou/mm3 (140-440); RDW Standard Deviation 42.5 fL (35.1-43.9); Red Blood Count 4.05 Miln/mm3 (4.50-5.90); White Blood Count 7.7 Thou/mm3 (3.8-10.6)
--- NOTE | 2024-06-09 18:25 | PC.NURSE ---
PT IN ROOM 01 AT THIS TIME. TELE MINH DOCTOR SPEAKING WITH PT'S MOM IN ROOM AT THIS TIME.
[2024-06-09] MEDS: SODIUM CHLORIDE 0.9% 1000 ML 1,000 ML 100 ML IV (18:29)
--- NOTE | 2024-06-09 18:35 | PC.NURSE ---
IN TO ASSESS PT. PT LIZA FROM [facility] WITH C/O STROKE LIKE SYMPTOMS. MOM OF PT STATES SHE NOTED CHANGE IN BASELINE AROUND 1400 TODAY, STATES STAFF LAST SAW PT AT BASELINE SOMETIME YESTERDAY. MOM REPORTS 3 STROKES IN THE PAST, 2 AND A HALF YEARS AGO, ONE ON 04/26/24, AND MOST RECENT TWO WEEKS AGO. MOM NOTED LEFT SIDED FACIAL DROOPING OF EYE AND MOUTH, LEFT ARM WEAKNESS, LEFT SIDED LEANING, AND INABILITY TO STAND TODAY. TELE-NEUROLOGIST AT BEDSIDE TO ASSESS.
[2024-06-09 18:45] LABS: Partial Thromboplastin Time 27.4 Seconds (22.0-36.0); Prothrombin Time 11.3 Seconds (9.0-12.2)
[2024-06-09 18:54] LABS: Alanine Aminotransferase 8 U/L (10-49); Albumin, Serum 3.8 gm/dL (3.5-5.0); Albumin/Globulin Ratio 1.7 (1.2-2.2); Alkaline Phosphatase 54 U/L (46-116); Anion Gap 7 (7-16); Aspartate Amino Transferase 13 U/L (0-34); BUN/Creatinine Ratio 10 Ratio (12-20); Bilirubin,Total 0.4 mg/dL (0.3-1.2); Blood Urea Nitrogen 8 mg/dL (9-23); Calcium 8.5 mg/dL (8.3-10.6); Calcium (Corrected) 8.7 mg/dL (8.5-10.1); Carbon Dioxide 28.6 mMol/L (20.0-31.0); Chloride 102 mMol/L (98-107); Creatinine (Component) 0.8 mg/dL (0.6-1.3); Estimated Creatinine Clearance 105.2 mL/min (>60); Globulin 2.3 gm/dL (2.3-3.5); Glucose 114 mg/dL (74-106); Magnesium 1.8 mg/dL (1.6-2.6); Osmolality,Calculated 274 (275-295); Potassium 3.9 mMol/L (3.4-5.1); Sodium 138 mMol/L (136-145); Total Protein 6.1 gm/dL (5.7-8.2); Troponin I < 0.020 ng/mL (0.0-0.045); eGFR > 60 See Note
--- NOTE | 2024-06-09 19:30 | PD.EDADULT ---
ED General RME/HPI General Chief complaint: Weakness Stated complaint: POSSIBLE STROKE Time Seen by Provider: 06/09/24 19:10 Arrival date/time: 06/09/24 17:42 CC: Increased confusion left-sided weakness and left-sided facial drooling unable to stand HPI onset 24 hours ago. The patient has a significant CVA history seen here on 30 May and ruled out for hemorrhagic stroke. Mother at bedside states she had taken him off hospice 3 days ago. The patient is a DNR. RME / HPI RME / HPI narrative: 58 year old male with past medical history significant for CVA in 2020 and on 04/26/2024 presents to the Emergency Department BIBA with complaint of left sided weakness, according to family. Symptoms are moderate. Stroke alert initiated at 1750. Orders made at this time are congruent stroke protocol. Related Data Home Medications ?Medication ?Instructions ?Recorded ?Confirmed carvedilol 3.125 mg tablet 3.125 mg PO BID 05/28/24 05/28/24 Previous Rx's ?Medication ?Instructions ?Recorded sennosides 8.6 mg tablet (Senna 8.6 mg PO QDAY PRN constipation 30 05/29/24 Lax) days #30 tabs divalproex 250 mg tablet,extended 750 mg (3 x 250 mg) PO BID 30 days 05/30/24 release 24 hr #180 tabs Allergies Allergy/AdvReac Type Severity Reaction Status Date / Time No Known Allergies Allergy Unverified 06/09/24 18:44 Review of Systems Review of Systems ROS Unobtainable: unobtainable due to mental status Past Medical History Past Medical History NEUROLOGIC: Positive Cerebrovascular Accident (X3), Seizures and Subdural Hematoma CARDIAC: Positive Cardiac Disorders, Hypercholesterolemia and Hypertension; Negative Congestive Heart Failure RESPIRATORY: Negative Chronic Obstructive Pulmonary Disease (COPD) GENITOURINARY: Negative Renal Disease ENDOCRINE: Negative Diabetes Mellitus Type 1 or Diabetes Mellitus Type 2 HEMATOLOGIC: Negative Blood Disorders OTHER HISTORY: Negative Blood Transfusions Surgical History SURGICAL: Positive Coronary Stent Social History SMOKING STATUS: Unknown if ever smoked SECOND HAND EXPOSURE: No ED Exam Narrative Physical exam: [General: Unable to follow commands. Head normocephalic HEENT: Eyes pupils are PERRLA EOMs are intact. Mouth pink dry membranes. Neck is supple nontender Chest equal chest rise Respiratory: Clear to auscultation no wheezes crackles or rubs CV: Rate rhythm is regular no murmurs rubs or clicks Abdomen is soft nontender n Back: No CVA tenderness no spinous process tenderness from cervical spine thoracic and lumbar spine Skin: Intact no petechiae rash induration ulceration or crepitus Extremities: Moving all extremity against resistance cap refill less than 2 seconds neurosensory intact Neuro: Somnolent Course Quality Measures none Orders Category Date Time Status Bedside Blood Glucose NOW Care 06/09/24 17:52 Active Psychiatric Aides Teacher NOW Care 06/09/24 17:52 Active Continuous Pulse Oximetry NOW Care 06/09/24 17:52 Completed EKG (ED ONLY) *Do not use* NOW Care 06/09/24 17:52 Completed In and Out Catheter NEEDED Care 06/09/24 17:52 Active Insert IV NOW Care 06/09/24 17:52 Active NIH Stroke Scale now Care 06/09/24 17:52 Active NPO NOW Care 06/09/24 17:52 Active Neuro Check Q1HR Care 06/09/24 17:53 Active Nurse Swallow Screen x1 Care 06/09/24 17:52 Active Consult to Neurology / Tele-Neurology Routine Cons 06/09/24 17:52 Active Consult to Neurology / Tele-Neurology Stat Cons 06/09/24 19:[address] angio stroke protocol Stat Exams 06/09/24 17:[address] stroke protocol Stat Exams 06/09/24 17:52 Completed EKG (ED Only) Stat Exams 06/09/24 17:52 Draft CBC Stat Lab 06/09/24 18:00 Completed Comprehensive Metabolic Panel Stat Lab 06/09/24 18:00 Completed Drug Screen,Urine Stat Lab 06/09/24 17:52 Ordered Magnesium Stat Lab 06/09/24 18:00 Completed Partial Thromboplastin Time Stat Lab 06/09/24 18:00 Completed Prothrombin Time with INR Stat Lab 06/09/24 18:00 Completed Troponin I Stat Lab 06/09/24 18:00 Completed Urinalysis Stat Lab 06/09/24 17:52 Ordered Urine Culture Stat Lab 06/09/24 17:52 Ordered Ondansetron Inj [Zofran Inj] Med 06/09/24 17:52 Active 4 mg IV Q4HR PRN Sodium Chloride 0.9% 1000 ml [Ns] 1,000 ml Med 06/09/24 18:00 Active IV Q10H Oxygen Delivery NOW RT 06/09/24 17:52 Active Vital Signs Vital signs: Vital Signs Pulse Rate 86 06/09/24 17:55 Respiratory Rate 18 06/09/24 17:55 Blood Pressure 105/65 06/09/24 17:55 Pulse Oximetry (%) 94 L 06/09/24 17:55 Oxygen Delivery Method Room Air 06/09/24 17:55 [facility] Patient data External records reviewed:: [facility] previous records Clinical information provided by:: patient and parent Social determinants that could affect healthcare access:: none Patient has the following chronic illnesses:: Recent CVA How is presenting disease/condition affected by chronic disease/condition?: uneffected by Evaluation data The following diagnostics were reviewed and interpreted by me:: lab results and radiology exam(s) Lab and/or radiology exams considered but not ordered:: EKG performed at 1835 shows a ventricular rate of 86 IN interval 156 QRS of 82 QTc of 383 sinus rhythm CBC shows no leukocytosis anemia thrombocytopenia CMP shows a sodium 138 potassium 3.9 chloride of 102 CO2 of 28.6 BUN of 8 creatinine 0.8 glucose of 114. Magnesium is negative Troponin is negative CT of the head shows a subacute right basal infarct. 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 This is interpreted by me and read by radiology. Interpretation Summary: Patient's symptoms are new according to the mother at bedside, however CT showed no new findings. Mother is requesting an MRI of the brain to see if there is anything new. Patient's case discussed at length with Dr. Dennis who agrees to consult for an observation admission for MRI of the brain in the morning. Medications Medications considered but not ordered:: After lengthy discussion with the mother, and Dr. Dennis was determined that the patient been taken off hospice 3 days ago during the patient's progression but now his changes that were listed above Dr. Dennis feels an MRI was satisfied the mother's concerns as well as look to see if there is new ischemic areas related to this change in symptoms. Medication administrations:: Medication Administration History Sodium Chloride (Ns) 1,000 mls @ 100 mls/hr IV Q10H DAVID Stop: 06/10/24 13:59 Last Admin: 06/09/24 18:29 Dose: 100 mls/hr Documented By: VG Ondansetron HCl (Ondansetron Inj 2 Mg/Ml Inj 2 Ml) 4 mg IV Q4HR PRN PRN Reason: NAUSEA OR VOMITING Stop: 07/09/24 17:51 None Consultations Consultation(s) initiated? (list below): Yes Diagnosis Differential Diagnosis ED Complaint MDM: CVA TIA intracranial hemorrhage Most likely diagnosis given after review of the tests above:: CVA Admission Indicated Admission indicated?: indicated Explain why admission is indicated or not indicated:: Further medical management Admission Request Was there a request for admission?: No Disposition Plan Disposition Plan: Admit Medical Decision Making Differential Diagnosis Differential Diagnosis: CVA TIA intracranial hemorrhage Lab Data 06/09/24 18:00 06/09/24 18:00 Labs: Lab Results 06/09/24 Range/Units 18:00 WBC 7.7 (3.8-10.6) Thou/mm3 RBC 4.05 L (4.50-5.90) Miln/mm3 Hgb 13.0 L (13.5-16.0) g/dL Hct 37.8 L (41.0-53.0) % MCV 93 (80-100) fL MCH 32.1 (25.0-35.0) pg MCHC 34.4 (31.0-37.0) g/dl RDW Std Deviation 42.5 (35.1-43.9) fL Plt Count 193 D (140-440) Thou/mm3 Neut % (Auto) 74 (37-80) % Lymph % (Auto) 15 (10-50) % [place] % (Auto) 9 (0-12) % Eos % (Auto) 1 (0-10) % Baso % (Auto) 1 (0-2.5) % Neut # (Auto) 5.7 (1.8-7.7) Thou/mm3 Lymph # (Auto) 1.1 (1.0-4.8) Thou/mm3 [place] # (Auto) 0.7 (0.0-0.8) Thou/mm3 Eos # (Auto) 0.1 (0.0-0.5) Thou/mm3 Baso # (Auto) 0.0 (0.0-0.2) Thou/mm3 Immature Gran # (Auto) 0.02 H (0.00-0.00) Thou/mm3 Absolute Nucleated RBC 0.00 (0.00-0.00) Thou/mm3 Immature Gran % 0 (0-0) % Nucleated RBC % 0 (0) /100 WBC PT 11.3 (9.0-12.2) Seconds INR 1.0 (0.9-1.3) APTT 27.4 (22.0-36.0) Seconds Sodium 138 (136-145) mMol/L Potassium 3.9 (3.4-5.1) mMol/L Chloride 102 (98-107) mMol/L Carbon Dioxide 28.6 (20.0-31.0) mMol/L Anion Gap 7 (7-16) BUN 8 L (9-23) mg/dL Creatinine 0.8 (0.6-1.3) mg/dL Estim Creat Clear Calc 105.2 (>60) mL/min eGFR > 60 (60 - ) See Note BUN/Creatinine Ratio 10 L (12-20) Ratio Glucose 114 H (74-106) mg/dL Calculated Osmolality 274 L (275-295) Calcium 8.5 (8.3-10.6) mg/dL Corrected Calcium 8.7 (8.5-10.1) mg/dL Magnesium 1.8 (1.6-2.6) mg/dL Total Bilirubin 0.4 (0.3-1.2) mg/dL AST 13 (0-34) U/L ALT 8 L (10-49) U/L Alkaline Phosphatase 54 (46-116) U/L Troponin I < 0.020 (0.0-0.045) ng/mL Total Protein 6.1 (5.7-8.2) gm/dL Albumin 3.8 (3.5-5.0) gm/dL Globulin 2.3 (2.3-3.5) gm/dL Albumin/Globulin Ratio 1.7 (1.2-2.2) Discharge Plan Plan Patient Disposition: Other Care w/in Hosp ([facility]) Patient condition on transfer: Stable Prescriptions/Referrals Prescriptions/Med Rec: No Action carvedilol 3.125 mg tablet 3.125 mg PO BID Patient Comments: TAKE 1 TABLET BY MOUTH TWICE A DAY WITH MEALS INSTRUCTIONS: DO NOT TAKE IF HEART RATE UNDER 60 sennosides [Senna Lax] 8.6 mg Tablet 8.6 mg PO QDAY PRN (Reason: constipation) 30 Days Qty: 30 0RF divalproex 250 mg tablet extended release 24 hr 750 mg PO BID 30 Days Qty: 180 0RF Referrals: No Primary/Family,Physician [Primary Care Provider] - In 1 week Problem List Clinical Impression: CVA (cerebral vascular accident) Patient/Caregiver Discharge Instructions Print Language: Ivorian Stand Alone Forms: Shannan Award Info., Patient Portal Info Letter PA/VEGETABLE TESTER Supervising Physician PA/VEGETABLE TESTER Supervising Physician: Eben Silva ENP
--- NOTE | 2024-06-09 20:26 | ESHP_ITS ---
Documentation for date of: 06/09/24 HPI History of Present Illness Chief complaint: Left facial droop and ptosis History of present illness: HPI: Patient accompanied by his mother, Nuria at bedside. Patient is poor historian and history obtained from his mother. 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 He follows up regularly with tar chaser Dr. Bonilla in [place] and neurologist Dr. Dennis. Patient presented today with a chief complaint of altered mental status and ptosis. According to patient's mother, she visited him at the rehab facility around 2 PM today. She noticed patient's left eye was droopy as well as his left face and he had left-sided weakness as well. Patient also was more confused than usual and kept asking about his father who 6 years ago. Denies any headache, new visual changes, loss of consciousness, chest pain/pressure, palpitations, seizures and incontinence. Currently Mother, Nuria endorses improvement of facial droop and weakness compared to earlier in day. At baseline patient's mother stated that he had residual left sided weakness since his first stroke in 2020 but was able to ambulate and carry out some ADLs independently. However since his recent stroke in April 2024, he has been bedbound but able to work with physiotherapy standing with assistance. He can shave himself but also requires assistance with eating and self-care. He also has complete right-sided hemianopia, dyslexia, agraphia and expressive aphasia at baseline. Of note 1 month ago 04/26/2024, patient had a hemorrhagic stroke and presented to [facility] emergency department. He was subsequently transferred to [facility] where he spent approximately 3 weeks hospitalized. He was intubated and mechanically ventilated in the ICU for 1 week while on nicardipine infusion. Goals of care discussion was held and his mother stated that she was told the patient would . However he survived and was subsequently downgraded from the ICU and discharged to acute rehab [facility] on 05/24/2024. Patient also had a recent admission earlier this month from 05/27/2024 to 05/30/2024 for new onset seizures acute right basal ganglia infarct with hemorrhagic transformation. He was started on Depakote 750 Mg p.o. twice daily and all antiplatelet and anticoagulation treatment were discontinued due to hemorrhagic transformation of stroke. Also of note patient was discharged to SNF with hospice after last admission. Patient was removed from hospice care 3 days ago. ED course: BP 105/65, pulse 86, RR 18, temp 99.3 F, SpO2 94% on room air. Labs significant for Hb 13, HCT 37.8, BUN 8, CR 0.8. EKG showed sinus rhythm, rate 86, Q waves in inferior and anterolateral septal leads, incomplete RBBB. No acute ST changes. Head CT revealed subacute infarcts right basal ganglia unchanged. No acute hemorrhage or mass effect. Head CT again showed occlusion of the left internal carotid artery at the carotid bifurcation with no filling distally. Collateral filling of left MCA artery M1 segment and trifurcation vessels. In the ED patient received 1 L normal saline IV fluids at [address] Dennis, neurologist was consulted by the ED who recommended admission for MR brain stroke protocol. Patient will be admitted for stroke rule out Neurology, Dr. Dennis consulted and is closely following the case. Review of Systems Review of Systems Narrative Review of Systems: GENERAL: Denies fever/chills or diaphoresis. HEENT: Denies headaches or visual changes. Denies discharge. Neuro: As above CARDIO: Denies chest pain or palpitations. PULM: Denies SOB, couging or wheezing. GI: Denies abdominal pain, N/V/C/D. Reports having BMs. URO: Denies burning/itching/pain/urinary changes. MSK/EXT/SKIN: Denies joint/skeletal/muscle pain, issues/changes in upper or lower extremities, itchiness, or superficial pain. PSYCH: Cooperative, pleasant mood & affect. The rest of the review of systems is otherwise negative. Past Medical History Past Medical History Comments [facility] COMMENT: Past medical history: ? Essential hypertension - Hyperlipidemia ? Myocardial infarction [2017] ? History of LV thrombus [2020] - History of left posterior temporal, occipital and parietal infarct. Also left basal ganglia and left caudate infarct [2020] - History of acute right basal ganglia hemorrhagic stroke April 2024 - Chronic CVA right basal ganglia with hemorrhagic conversion [May 2024] - Seizure disorder Medication list: - ASA 81 mg po daily ? Lisinopril 20 Mg p.o. daily ? Nicardipine 20 Mg p.o. every 8 hourly ? Atorvastatin 80 Mg p.o. 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 Quit 1 month ago Social History Note: lives at [facility] acute Rehab Exam Vital Signs Temp Pulse Resp BP Pulse Ox O2 Del Method O2 Flow Rate 99.3 F 84 16 124/86 H 98 Nasal Cannula 2 06/09/24 18:30 06/09/24 19:47 06/09/24 19:47 06/09/24 19:47 06/09/24 19:47 06/09/24 19:47 06/09/24 19:47 Narrative Exam Constitutional Alert, oriented x 1 [ Person] and comfortable. Elderly male HEENT Vision grossly intact. Patent nares. Trachea midline Respiratory Chest normal on inspection and clear auscultation bilaterally Cardiovascular S1 and S2 audible, RRR. No murmurs carotid bruit. No gross JVD. Abdominal Soft and non tender to palpation in all quadrants. BS + Genitourinary No bladder tenderness, no flank pain. Normal to palpation Musculoskeletal Extremities tone within normal limits. No LE edema. Neurological Complete right-sided hemianopia, dyslexia, agraphia, expressive aphasia, reflexes intact, NIHSS: 7 [1B +2, 3 + 2 , 4 +1, 9 +2] Skin Warm, dry and intact. No apparent lesions. Psychiatric Patient has good affect, is cooperative Results: Labs 06/09/24 18:00 06/09/24 18:00 Labs: Short CBC 06/09/24 Range/Units 18:00 WBC 7.7 (3.8-10.6) Thou/mm3 Hgb 13.0 L (13.5-16.0) g/dL Hct 37.8 L (41.0-53.0) % Plt Count 193 D (140-440) Thou/mm3 BMP 06/09/24 18:00 Sodium 138 Potassium 3.9 Chloride 102 Carbon Dioxide 28.6 BUN 8 L Creatinine 0.8 Glucose 114 H Calcium 8.5 Cardiac Enzymes 06/09/24 Range/Units 18:00 Troponin I < 0.020 (0.0-0.045) ng/mL Liver Function 06/09/24 Range/Units 18:00 Total Bilirubin 0.4 (0.3-1.2) mg/dL AST 13 (0-34) U/L ALT 8 L (10-49) U/L Alkaline Phosphatase 54 (46-116) U/L Albumin 3.8 (3.5-5.0) gm/dL Quality Measures Quality Measures none Medications Home Medications and Allergies Home Medications ?Medication ?Instructions ?Recorded ?Confirmed ?Type carvedilol 3.125 mg tablet 3.125 mg PO TID 05/28/24 06/09/24 History acetaminophen 650 mg rectal 650 mg MA Q6H PRN Fever 06/09/24 06/09/24 History suppository bisacodyl 10 mg rectal suppository 10 mg MA Q72H PRN Constipation 06/09/24 06/09/24 History hyoscyamine sulfate 0.125 mg/mL 0.125 mg PO Q4H PRN Secretions 06/09/24 06/09/24 History oral drops (Hyosyne) lorazepam 2 mg/mL oral concentrate 0.5 mg buccal Q6H PRN Anxiety 06/09/24 06/09/24 History (Lorazepam Intensol) morphine concentrate 100 mg/5 mL 1 mg buccal Q1H PRN Severe Pain 06/09/24 06/09/24 History (20 mg/mL) oral solution (Scale Score 7-10) sennosides 8.6 mg tablet (Senna 8.6 mg PO BID 06/09/24 06/09/24 History Lax) Allergies Allergy/AdvReac Type Severity Reaction Status Date / Time No Known Allergies Allergy Unverified 06/09/24 18:44 Visit Medications Sodium Chloride (Ns) 1,000 mls @ 100 mls/hr IV Q10H DAVID Stop: 06/10/24 13:59 Last Admin: 06/09/24 18:29 Dose: 100 mls/hr Ondansetron HCl (Ondansetron Inj 2 Mg/Ml Inj 2 Ml) 4 mg IV Q4HR PRN PRN Reason: NAUSEA OR VOMITING Stop: 07/09/24 17:51 Assessment & Plan Plan Patient is a 58-year-old male with past history of essential hypertension, hyperlipidemia, myocardial infarction 2016, LV thrombus 2020, left posterior temporal, 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 He follows up regularly with tar chaser Dr. Bonilla in [place] and neurologist Dr. Dennis. Patient presented today with a chief complaint of altered mental status and ptosis. Patient will be admitted for stroke rule out. 1. Acute encephalopathy, likely structural 2. Stroke rule out Earlier today around 2 PM patient's mother states that she noticed left-sided weakness, facial droop and ptosis along with patient more confused than baseline asking about his father who 6 years ago. On exam patient had left-sided ptosis but otherwise to baseline according to his mother. He had complete right-sided hemianopia, dyslexia, agraphia and expressive aphasia at baseline. DDx: TIA, stroke, medication side effect, hemorrhage Head CT revealed subacute infarcts right basal ganglia unchanged. No acute hemorrhage or mass effect. Head CT again showed occlusion of the left internal carotid artery at the carotid bifurcation with no filling distally. Collateral filling of left MCA artery M1 segment and trifurcation vessels. Plan : - NPO until swallow screen passed. Once passed patient can have regular cardiac diet - Aspiration precautions - Seizure precautions - Neuro checks q 4H - Head of bed elevated to 30 degrees - Swallow eval and bedside swallow screen ordered - PT/OT referrals placed - HbA1C, Lipid panel, TSH ordered - Brain MRI stroke protocol was ordered - PRN Acetaminophen 650mg to avoid hyperthermia - Dr Dennis consulted, pending in-house Neurology recommendations 3. Seizure Disorder On previous admission patient was diagnosed with seizure disorder and started on Depakote 750 Mg p.o. twice daily. Attempted to restart patient's home medication on this admission, however pharmacy declined to do so until a blood valproic acid level was obtained. Patient had EEG done on 05/29/24 findings include: This EEG is abnormal with localized slowing within the right temporal area suggestive of seizures. Plan: ? Valproic acid levels ordered ? To resume home dose once levels obtained and pharmacy agrees. ? Lorazepam 4 Mg IV x 1 as needed if any seizure-like activity > 5 minutes. 4. History of acute right basal ganglia hemorrhagic stroke April 2024 5. Hemorrhagic conversion of right basal ganglia infarct May 2024 Of note 1 month ago 04/26/2024, patient had a hemorrhagic stroke and presented to [facility] emergency department. He was subsequently transferred to [facility] where he spent approximately 3 weeks hospitalized. He was intubated and mechanically ventilated in the ICU for 1 week while on nicardipine infusion. Patient also had a recent admission earlier this month from 05/27/2024 to 05/30/2024 for new onset seizures acute right basal ganglia infarct with hemorrhagic transformation. He was started on Depakote 750 Mg p.o. twice daily and all antiplatelet and anticoagulation treatment were discontinued due to hemorrhagic transformation of stroke. Head CT noncontrast completed on 04/26/2024 findings include: Acute appearing hemorrhage in the right basal ganglia 13 x 6 mm with surrounding mild edema. Since this recent stroke patient has not ambulated. However he has worked with physical therapy and can stand with assistance. 6. History of left posterior temporal, occipital and parietal ischemic stroke [2020] 7. History of left basal ganglia and left caudate ischemic stroke with hemorrhagic conversion [2020] After the strokes patient had deficits including right-sided hemianopia, dyslexia, agraphia and expressive aphasia. However he was able to ambulate until recent stroke April 2024. Brain MRI completed on 03/29/2021 findings include: Large acute infarct left posterior temporal left occipital and left posterior parietal lobes, infarcts left basal ganglia and left caudate nucleus. Mass effect with effacement of left cerebral sulcal and mild shift of the frontal horns to the right. 8. Essential hypertension 9. Hyperlipidemia 10. History of [place] 2016 11. History of LV thrombus 2020 On admission BP 137/98. Home medication lisinopril 20 Mg p.o. daily, nicardipine 20 Mg p.o. every 8 hourly, atorvastatin 80 Mg p.o. at bedtime, aspirin 81 Mg p.o. daily. Patient follows up with tar chaser Dr. Bonilla in [place]. Plan: - Resumed home medication atorvastatin 80 Mg p.o. at bedtime ? Antihypertensives on hold in light of normotension/hypotension. Day team to decide when to resume. ? Antiplatelets and anticoagulation discontinued on previous admission due to hemorrhagic conversion of stroke Health maintenance: Disposition: Pending MR brain. Neuro recs Diet: Cardiac Lines: pIVs GI Prophylaxis: Pantoprazole Thrombo Prophylaxis: SCDs Code status: FULL CODE Plan of care discussed with Attending Dr. Bee Alejo MD PGY 1 Attending Provider Attestation/Addendum I have examined the patient, reviewed labs and imaging findings, discussed the case with the resident(s), and reviewed entered orders. I agree with the plan of care as outlined in this note, with these additional summaries/recommendations: Patient is a pleasant 58-year-old male with a medical history of KS 2016, LV thrombus 2020, primary hypertension, hyperlipidemia, multiple CVAs with hemorrhagic conversion in 2020 and hemorrhagic stroke RBG in 2023, DMII, and recently taken off hospice presents to [facility] emergency department on 06/09/2024 with chief complaint of left-sided weakness. Stroke alert initiated and hospitalist team consulted for continuation of care. Per mother at bedside patient was ambulatory days prior and baseline speech is difficult to discern. He is able to feed himself intermittently but does require assistance sometimes. # Strokelike symptoms # History of multiple CVAs # History of hemorrhagic CVA x 2 Presented with left-sided weakness and NIHSS score of 7 on admission Presented with left-sided weakness Head CT without: Subacute infraction right basal ganglia again noted with no interval change or mass effect CTA head and neck: Again noted occlusion left internal carotid artery at bifurcation with no filling distally and collateral filling left middle M1 segment and trifurcation vessels 05/27/24 Echo: Negative bubble study Not a candidate for tPA given history of hemorrhagic CVAs Admit to telemetry with frequent neurochecks every 4 hours Past bedside swallow eval, start cardiac diet Head of bed 30 degrees Neurology consulted, recommendations appreciated Recent echocardiogram reviewed- negative bubble, MRI brain ordered We will allow permissive hypertension for 24 hours Risk factor screening: A1c, TSH, lipid panel Physical therapy evaluation and speech therapy referral for swallow evaluation Plan: Given patient's extensive CVA history with hemorrhage, he is not a candidate for any anticoagulation at this time. We will continue high intensity statin and follow-up MRI brain. Appreciate neurology recommendations. # ?History of seizures Plan: Continue home valproic acid 750 mg p.o. twice daily # LV thrombus # History of KS # History of CHF 05/27/24 Echo: Normal LV size, anterior apical and inferior apical akinesis with 2.1X 1.5 cm mural thrombus in apex with EF 35-40% Plan: Unfortunately not a candidate for anticoagulation. Since patient was taken off hospice we will discuss with patient's mother about initiating goal- directed medical therapy for CHF. # Primary hypertension Plan: Hold home antihypertensives for permissive hypertension. Will resume when able. # Hyperlipidemia Plan: Lipid panel ordered and resume home high intensity statin atorvastatin 80 mg p.o. at bedtime #Chronic pain management: Plan: Continue home morphine & benzo as tolerated Dr. Gamboa
[2024-06-09] MEDS: PANTOPRAZOLE INJ 40 MG VIAL IVP (21:28)
[2024-06-10] VITALS (22 sets, daily range): BP systolic 98–120; BP diastolic 63–83; PULSE 71–91; RESP 16–98; TEMP 36.7–37.2; O2SAT 93–98; BMI 23.3
--- NOTE | 2024-06-10 | XR_ITS ---
Examinations: MRI Brain without intravenous contrast. MRA brain without intravenous contrast. MRA carotids without intravenous contrast 3-D vascular reconstructions Date and time of exam: June 10, 2024 0928 hours Comparison May 28, 2024 INDICATIONS: Stroke alert June 09, 2024, onset left-sided body weakness focal neurologic deficit facial drooling, history 3 prior CVAs Technique: Multiple axial and sagittal images of the brain have been obtained MRA brain carotid images without contrast obtained, including 3-D postprocessing, vascular maximum intensity projection images Findings: Sellaturcica is not enlarged. The optic chiasm and infundibular stalk are not remarkable. Prepontine and interpeduncular cisterns are not enlarged. No localized enlargement of the medulla or mani. Fourth ventricle and cerebellar tonsils normal in position. Subacute hemorrhage is not seen. Fourth ventricle is midline. Mass in the cerebellopontine angle region is not evident. 7th and 8th nerve complexes exhibits symmetry. Globes are symmetrical with no retro-orbital mass. Increased white matter signal prominent in the right basal ganglia Diffusion-weighted images demonstrate right basal ganglia focus of restricted diffusion which measures smaller compared to May 28, 2024, 28 x 10 mm compared to 38 x 18 mm on November 25, 2024 Surrounding edema Very subtle restricted diffusion adjacent to the third ventricle on the right side diffusion image 12 without signal deficit on the ADC map Large old infarcts again noted Mass-effect upon the ventricular system is not identified. MRA carotid images occlusion left internal carotid artery. MRA brain images collateral filling left middle cerebral artery branches Impression: Smaller acute infarct in the right basal ganglia, 28 x 10 mm compared to 38 x 18 mm on May 28, 2024 No definite new areas of infarction
[2024-06-10] MEDS: SODIUM CHLORIDE 0.9% 1000 ML 1,000 ML 100 ML IV (03:59)
--- NOTE | 2024-06-10 04:07 | ESCONSULT_ITS ---
Tele Neuro Consultation Consultation Date 06/09/24 Most Recent Vital Signs Last Vital Signs Temp 98.9 F 06/10/24 01:35 Pulse 78 06/10/24 04:06 Resp 19 06/10/24 04:06 BP 104/71 06/10/24 04:06 Pulse Ox 95 06/10/24 04:06 O2 Del Method Room Air 06/10/24 03:36 O2 Flow Rate 2 06/09/24 19:47 Laboratory-Coagulation Panel PT 11.3 Seconds (9.0-12.2) 06/09/24 18:00 INR 1.0 (0.9-1.3) 06/09/24 18:00 APTT 27.4 Seconds (22.0-36.0) 06/09/24 18:00 Consultation Narrative [facility] TeleNeurology Consult Services Patient Name:???Mode Zuñiga Date of :???1965 Identification Number:??? Date of Service:???06/09/2024 17:51:35 Diagnosis:?I63.00 - Cerebrovascular accident (CVA) due to thrombosis of precerebral artery (HCCC) Impression: ?Patient is a 57 year old with history of hemorrhagic CVA, seizures, hypertension, hyperlipidemia, type II diabetes [place] who presents with new onset of left sided facial droop and left sided weakness since yesterday. His motor strength is improved but still has left facial droop and disconjugate gaze. He has speech deficits and visual field deficit per the mother at baseline but is ambulatory. He is not on antiplatelet therapy due to recent intraparenchymal hemorrhage on 05/30 in the basal ganglia. CT today shows subacute right basal ganglia infarct no acute hemorrhage. 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 Cannot exclude acute stroke vs recrudescence. Will need MRI brain imaging, echo if not completed in the past 3 months. Our recommendations are outlined below. Recommendations: ? Stroke/Telemetry Floor ? Neuro Checks ? Bedside Swallow Eval ? DVT Prophylaxis ? IV Fluids, Normal Saline ? Head of Bed 30 Degrees ? Euglycemia and Avoid Hyperthermia (PRN Acetaminophen) ?aspirin 81mg, no evidence of hemorrhage on CT ?statin therapy lipitor 80mg ?MRI brain ?fu with inpatient neurology team Sign Out: ? Discussed with Emergency Department Provider Advanced Imaging: CTA Head and Neck Completed. CTP Completed. LVO:No Patient in not a candidate for GOLDEN Metrics: Last Known Well: Unknown Dispatch Time: 06/09/2024 17:51:35 Arrival Time: 06/09/2024 17:30:00 Initial Response Time: 06/09/2024 17:54:32Symptoms: facial droop. Initial patient interaction: 06/09/2024 18:03:16 NIHSS Assessment Completed: 06/09/2024 18:11:18Patient is not a candidate for Thrombolytic. Thrombolytic Medical Decision: 06/09/2024 18:11:19Patient was not deemed candidate for Thrombolytic because of following reasons: LKW outside 4.5 hr window. . History of previous intracranial hemorrhage, intracranial neoplasm . I personally Reviewed the CT Head and it Showed large area of encephalomalacia left parietal, occipital temporal region. chronic right frontal. Subacute infarct in right basal ganglia, no hemorrhage Primary Provider Notified of Diagnostic Impression and Management Plan on: 06/09/2024 18:50:30 History of Present Illness:Patient is a 58 year old Male. Patient was brought by EMS for symptoms of facial droop. Patient is a 57 year old with history of hemorrhagic CVA, left temporal, occipital and parietal stroke secondary to an LV thrombus, seizure disorder, hypertension, hyperlipidemia, [place], type II diabetes [place] of a jail who presents with worsening of left sided facial droop and left sided weakness. Patient is not very cooperative with exam and appears very confused. During examination he was able to move left arm and leg, still had speech difficulty and visual field deficit. Per the mother, he had a stroke 2.5 years ago he had a major left hemispheric stroke, and has residual right hemiparesis and aphasia. He had a stroke 12/6 and 2,5 weeks ago in the right basal ganglia with hemorrhagic conversion. he was previously on anticoagulation and that was discontinued by his treating neurologist. He is on Depakoate for the management of seizures. Per mother, she has not witnessed seizures but he had abnormal EEG. She states he was ambulating two days ago but since yesterday unable to stand, increased left sided weakness. He is unable to read, write, only can sign his name since initial stroke. Has right VF cut that is chronic. He is improved per the mother, he is moving left side, no drift but earlier today had near flaccid paralysis. Past Medical History: ?Hypertension ?Diabetes Mellitus ?Hyperlipidemia ?Stroke ?Seizures Medications: No Anticoagulant use? No Antiplatelet use Reviewed EMR for current medications Allergies:? Reviewed Social History: Unable To Obtain Due To Patient Status :?Patient Is Confused Family History: There is no family history of premature cerebrovascular disease pertinent to this consultation ROS : 14 Points Review of Systems was performed and was negative except mentioned in HPI. Past Surgical History: There Is No Surgical History Contributory To Today?s Visit Examination: BP(118/78),?Pulse(61),?Blood Glucose(161) 1A: Level of Consciousness - Requires repeated stimulation to arouse?+ 2 1B: Ask Month and Age - Could Not Answer Either Question Correctly?+ 2 1C: Blink Eyes & Squeeze Hands - Performs Both Tasks?+ 0 2: Test Horizontal Extraocular Movements - Normal?+ 0 3: Test Visual Dyson - Complete Hemianopia?+ 2 4: Test Facial Palsy (Use Grimace if Obtunded) - Minor paralysis (flat nasolabial fold, smile asymmetry)?+ 1 5A: Test Left Arm Motor Drift - No Drift for 10 Seconds?+ 0 5B: Test Right Arm Motor Drift - No Drift for 10 Seconds?+ 0 6A: Test Left Leg Motor Drift - No Drift for 5 Seconds?+ 0 6B: Test Right Leg Motor Drift - No Drift for 5 Seconds?+ 0 7: Test Limb Ataxia (FNF/Heel-Robledo) - No Ataxia?+ 0 8: Test Sensation - Normal; No sensory loss?+ 0 9: Test Language/Aphasia - Severe Aphasia: Fragmentary Expression, Inference Needed, Cannot Identify Materials?+ 2 10: Test Dysarthria - Normal?+ 0 11: Test Extinction/Inattention - No abnormality?+ 0 NIHSS Score:?9 NIHSS Free Text :?disconjugate gaze on left. Pre-Morbid Modified Genoveva Scale:1 Points = No significant disability despite symptoms; able to carry out all usual duties and activities Spoke with :?cory mckeon This consult was conducted in real time using interactive audio and video technology. Patient was informed of the technology being used for this visit and agreed to proceed. Patient located in hospital and provider located at home/office setting. Patient is being evaluated for possible acute neurologic impairment and high probability of imminent or life-threatening deterioration. I spent total of 45 minutes providing care to this patient, including time for face to face visit via telemedicine, review of medical records, imaging studies and discussion of findings with providers, the patient and/or family. Dr Selene Lee [facility] For Inpatient follow-up with [facility] physician please call [facility] at . As we are not an outpatient service for any post hospital discharge needs please contact the hospital for assistance. If you have any questions for the [facility] physicians or need to reconsult for clinical or diagnostic changes please contact us via [facility] at .
[2024-06-10 05:06] LABS: Basophils % (Auto) 1 % (0-2.5); Eosinophils # (Auto) 0.1 Thou/mm3 (0.0-0.5); Eosinophils % (Auto) 1 % (0-10); Hematocrit 32.8 % (41.0-53.0); Hemoglobin 11.2 g/dL (13.5-16.0); Immature Granulocytes % (Auto) 0 % (0-0); Immature Granulocytes Auto 0.02 Thou/mm3 (0.00-0.00); Lymphocytes # (Auto) 0.9 Thou/mm3 (1.0-4.8); Lymphocytes % (Auto) 13 % (10-50); Mean Corpuscular HGB Conc 34.1 g/dl (31.0-37.0); Mean Corpuscular Hemoglobin 32.1 pg (25.0-35.0); Mean Corpuscular Volume 94 fL (80-100); Monocytes # (Auto) 0.9 Thou/mm3 (0.0-0.8); Monocytes % (Auto) 12 % (0-12); Neutrophils # (Auto) 5.2 Thou/mm3 (1.8-7.7); Neutrophils % (Auto) 73 % (37-80); Nucleated Red Blood Cell % 0 /100 WBC (0); Platelet Count 150 Thou/mm3 (140-440); RDW Standard Deviation 42.5 fL (35.1-43.9); Red Blood Count 3.49 Miln/mm3 (4.50-5.90); White Blood Count 7.2 Thou/mm3 (3.8-10.6)
[2024-06-10 05:16] LABS: Glucose Estimated Average 114 mg/dL (80-131); Hemoglobin A1C 5.6 % Hgb (4.8-6.0)
[2024-06-10 06:05] LABS: Alanine Aminotransferase < 7 U/L (10-49); Albumin, Serum 3.1 gm/dL (3.5-5.0); Albumin/Globulin Ratio 1.6 (1.2-2.2); Alkaline Phosphatase 41 U/L (46-116); Anion Gap 8 (7-16); Aspartate Amino Transferase < 10 U/L (0-34); BUN/Creatinine Ratio 10 Ratio (12-20); Bilirubin,Total 0.4 mg/dL (0.3-1.2); Blood Urea Nitrogen 6 mg/dL (9-23); Calcium 7.3 mg/dL (8.3-10.6); Carbon Dioxide 24.5 mMol/L (20.0-31.0); Cardiac Risk Estimate 3.8 RATIO (4.0-6.7); Chloride 109 mMol/L (98-107); Cholesterol 106 mg/dL (132-200); Creatinine (Component) 0.6 mg/dL (0.6-1.3); Estimated Creatinine Clearance 140.3 mL/min (>60); Globulin 1.9 gm/dL (2.3-3.5); Glucose 98 mg/dL (74-106); HDL Cholesterol 28 mg/dL (40-60); LDL Cholesterol,Calculated 65 mg/dL (0-130); Magnesium 1.6 mg/dL (1.6-2.6); Osmolality,Calculated 278 (275-295); Phosphorous 3.3 mg/dL (2.4-5.1); Potassium 3.5 mMol/L (3.4-5.1); Sodium 141 mMol/L (136-145); Thyroid Stimulating Hormone 1.42 uIU/mL (0.55-4.78); Triglycerides 63 mg/dL (30-150); eGFR > 60 See Note
--- NOTE | 2024-06-10 07:14 | PC.NURSE ---
Report received from pm nurse, patient lying in semifowler's position sleeping, no distress noted, patient admitted to Tele awaiting room, to r/o stroke, patient has h/o CVA with left sided deficit. Patient came to ER with c/o increased confusion. Patient awaiting MRI exam this am. call light within reach, will continue to monitor.
--- NOTE | 2024-06-10 08:17 | PC.NURSE ---
Patient lying in gurney awake, confused, asking who I am and where am I, what is going on , patient reoriented to place, time and situation. Patient requesting to call his friend to take him home and call his mother, patient given verbal reassurance, patient continuing to be repetative, skin is warm dry and pink, photographic technician states she was unable to take patient to MRI for exam do to patient being aggressive, Called Hospitalist, spoke with Dr. Irving states he will place orders .
--- NOTE | 2024-06-10 08:22 | PC.NURSE ---
Called patients mother in order for patient to speak with her.
[2024-06-10 08:24] LABS: Collection Type, Urine Clean Catch; Squamous Epithelial Cell,Urine 0 /hpf (0-5)
--- NOTE | 2024-06-10 08:39 | PC.NURSE ---
Dr. Gibbons at bedside to evaluate patient.
[2024-06-10 08:48] LABS: Bilirubin,Urine Negative (Negative); Blood,Urine Negative (Negative); Clarity,Urine Clear (Clear/Hazy); Color,Urine Lt-Yellow (Lt Yel-Yel); Glucose, Urine Negative (Negative); Ketones,Urine Negative (Negative); Leukocyte Esterase,Urine Negative (Negative); Nitrite,Urine Negative (Negative); Protein,Urine Negative (Neg - Trace); RBC,Urine 1 /hpf (0-3); Specific Gravity,Urine 1.016 (1.001-1.035); Urobilinogen,Urine Negative mg/dL (0.0-1.0); WBC,Urine 1 /hpf (0-5)
[2024-06-10] MEDS: LORazepam 0.5 MG TABLET 1 MG PO (08:49)
[2024-06-10] MEDS: PANTOPRAZOLE INJ 40 MG VIAL IVP (08:50)
[2024-06-10] MEDS: VALPROIC ACID SYRUP 250 MG/5 ML UDC 750 MG PO ×2 (08:50→20:49)
[2024-06-10] MEDS: SENNA TABLET 1 TAB PO (08:50)
[2024-06-10 09:04] LABS: Amphetamine/Methamp Scrn,U Negative (Negative); Barbiturate Screen,Urine Negative (Negative); Benzodiazepines Screen,Urine Negative (Negative); Benzoylecgonine Screen, Ur Negative (Negative); Fentanyl Screen,Urine Negative (Negative); Opiate Screen,Urine Negative (Negative); THC Screen,Urine Positive (Negative)
--- NOTE | 2024-06-10 09:20 | PC.NURSE ---
Mother at bedside, updated her on patient's plan of care.
--- NOTE | 2024-06-10 09:36 | PC.NURSE ---
Patient cooperative at this time, La from MRI here to take patient for exam
--- NOTE | 2024-06-10 09:42 | PC.CC ---
Pt Mode Zuñiga is a 58 yr old male admitted to hospitalist services for acute encephalopathy, stroke r/o. [id number] made contact with pts mother, Nuria Perez [phone] to complete initial assessment. Role and reason for call explained at this time. Pts mom expressed understanding admission order. Pts mom able to confirm demographic information. Pt is from [facility], where pt D/c to from [facility] on 05/31/24 with [facility]. Pts mom is is designated as surrogate DM. Per pts mom as of 3 days ago she stopped hospice services and is wanting pt fully worked up. Per pts mom, day before presenting to ED pt was ambulatory with some assist, but as of 06/09/24 pt was confined to a wheel chair and unable to do anything for himself. Per pts mom, pt is not diabetic and is not on dialysis. Pt is followed by [facility]. At time of D/c pt will return to [facility], to be determined if pts mom is going to request hospice services at time of D/c.
--- NOTE | 2024-06-10 10:32 | PD.RESPRO ---
Documentation for date of: 06/10/24 Senior resident attestation: The patient is a 58-year-old male with a past medical history of hemorrhagic conversion of ischemic CVA, seizures, hypertension, hyperlipidemia and type 2 diabetes mellitus who came in following new onset left-sided facial droop and weakness of the left side of his body since last Monday. Of note patient had a previous stroke earlier this month, CT showed subacute right middle kidney infarct, no acute hemorrhage, CTA showed ICA occlusion at origin on her R found to be similar to prior study in April, MRI brain was done which showed 28x10 mm acute infarct in the right relatively, compared to a bigger infarct earlier in May.. Concern for recrudescence versus new acute ischemic stroke. Teleneurologist recommended aspirin and statin. Consulted in-house neurologist Dr Dennis, who reviewed the MRI, recommended discontinuing aspirin and Eliquis for now as repeat brain imaging showed mild hemorrhagic transformation. Also started the patient on Depakote due to concern for nonconvulsive seizures, his EEG showed slowing in the right temporal area. #Acute ischemic stroke versus recrudescence #Seizure disorder #Hypertension #History of LV thrombus #History of coronary artery disease #History of multiple prior ischemic strokes #History of hemorrhagic conversion of ischemic stroke Patient evaluated and examined at the bedside, plan of care discussed with rest of the team including my attending physician, except as noted. Quresh PGY2 Subjective Subjective Interval history: Patient seen today at the bedside found awake, alert, oriented x 1 to person only. Vital signs at this time are stable. On examination some noted left-sided facial droop but able to move0 all 4 extremities. MRI brain was done showed Smaller acute infarct in the right basal ganglia, 28 x 10 mm compared to 38 x 18mm on May 28, 2024. No definite new areas of infarction. No aspirin or Plavix was given to the patient as he has history of hemorrhagic conversion of previous strokes. Exam Vital Signs Temp Pulse Resp BP Pulse Ox O2 Del Method O2 Flow Rate 98.7 F 73 16 103/73 94 L Room Air 2 06/10/24 06:14 06/10/24 07:13 06/10/24 07:13 06/10/24 07:13 06/10/24 07:13 06/10/24 07:13 06/09/24 19:47 Narrative Exam Physical Exam GENERAL: NAD, AAOx1 person HEENT: Moist mucosa. Left-sided facial droop, ptosis on left CARDIO: Heart RRR, no obvious murmurs PULM: No noted coughing/dyspnea CTA B/L, no R/W/R GI: Abdomen soft, nondistended, no pain on palpation. BSx4 SKIN/MSK/EXT: No wounds/rashes/edema/amputations, no pain on palpation. Pedal pulses present B/L NEURO: Left-sided facial droop, able to move all 4 extremities Objective Labs 06/11/24 05:12 06/11/24 05:12 Labs: Laboratory Results - last 24 hr 06/09/24 06/10/24 06/10/24 18:00 04:55 08:05 WBC 7.7 7.2 RBC 4.05 L 3.49 L Hgb 13.0 L 11.2 L Hct 37.8 L 32.8 L MCV 93 94 MCH 32.1 32.1 MCHC 34.4 34.1 RDW Std Deviation 42.5 42.5 Plt Count 193 D 150 D Neut % (Auto) 74 73 Lymph % (Auto) 15 13 Gl[place]ock % (Auto) 9 12 Eos % (Auto) 1 1 Baso % (Auto) 1 1 Neut # (Auto) 5.7 5.2 Lymph # (Auto) 1.1 0.9 L Gl[place]ock # (Auto) 0.7 0.9 H Eos # (Auto) 0.1 0.1 Baso # (Auto) 0.0 0.0 Immature Gran # (Auto) 0.02 H 0.02 H Absolute Nucleated RBC 0.00 0.00 Immature Gran % 0 0 Nucleated RBC % 0 0 PT 11.3 INR 1.0 APTT 27.4 Sodium 138 141 Potassium 3.9 3.5 Chloride 102 109 H Carbon Dioxide 28.6 24.5 Anion Gap 7 8 BUN 8 L 6 L Creatinine 0.8 0.6 Estim Creat Clear Calc 105.2 140.3 eGFR > 60 > 60 BUN/Creatinine Ratio 10 L 10 L Glucose [address] Glu mg/dL 114 Hemoglobin A1c 5.6 Calculated Osmolality 274 L 278 Calcium 8.5 7.3 L Corrected Calcium 8.7 8.0 L Phosphorus 3.3 Magnesium 1.8 1.6 Total Bilirubin 0.4 0.4 AST 13 < 10 ALT 8 L < 7 L Alkaline Phosphatase 54 41 L D Troponin I < 0.020 Total Protein 6.1 5.0 L Albumin 3.8 3.1 L D Globulin 2.3 1.9 L Albumin/Globulin Ratio 1.7 1.6 Triglycerides 63 Cholesterol 106 L LDL Cholesterol, Calc 65 HDL Cholesterol 28 L Cholesterol/HDL Ratio 3.8 L TSH 1.42 Ur Collection Type Urine Color Urine Clarity Urine pH Ur Specific [place] Urine Protein Urine Glucose (UA) Urine Ketones Urine Blood Urine Nitrite Urine Bilirubin Urine Urobilinogen (Auto) Ur Leukocyte Esterase Urine RBC Urine WBC Ur Squamous Epith Cells Urine Bacteria Urine Opiates Screen Negative Urine Fentanyl Screen Negative Ur Barbiturates Screen Negative U Amphetamin/Meth Scrn Negative U Benzodiazepines Scrn Negative U Cocaine Metab Screen Negative U Marijuana (THC) Screen Positive A 06/10/24 08:08 WBC RBC Hgb Hct MCV MCH MCHC RDW Std Deviation Plt Count Neut % (Auto) Lymph % (Auto) [place] % (Auto) Eos % (Auto) Baso % (Auto) Neut # (Auto) Lymph # (Auto) [place] # (Auto) Eos # (Auto) Baso # (Auto) Immature Gran # (Auto) Absolute Nucleated RBC Immature Gran % Nucleated RBC % PT INR APTT Sodium Potassium Chloride Carbon Dioxide Anion Gap BUN Creatinine Estim Creat Clear Calc eGFR BUN/Creatinine Ratio Glucose Estimated Ave Glu mg/dL Hemoglobin A1c Calculated Osmolality Calcium Corrected Calcium Phosphorus Magnesium Total Bilirubin AST ALT Alkaline Phosphatase Troponin I Total Protein Albumin Globulin Albumin/Globulin Ratio Triglycerides Cholesterol LDL Cholesterol, Calc HDL Cholesterol Cholesterol/HDL Ratio TSH Ur Collection Type Clean Catch Urine Color Lt-Yellow Urine Clarity Clear Urine pH 7.0 Ur Specific [place] 1.016 Urine Protein Negative Urine Glucose (UA) Negative Urine Ketones Negative Urine Blood Negative Urine Nitrite Negative Urine Bilirubin Negative Urine Urobilinogen (Auto) Negative Ur Leukocyte Esterase Negative Urine RBC 1 Urine WBC 1 Ur Squamous Epith Cells 0 Urine Bacteria None Urine Opiates Screen Urine Fentanyl Screen Ur Barbiturates Screen U Amphetamin/Meth Scrn U Benzodiazepines Scrn U Cocaine Metab Screen U Marijuana (THC) Screen Quality Measures Quality Measures none Assessment & Plan Assessment Current Active Medications: Generic Name Dose Route Start Last Admin Trade Name Freq PRN Reason Stop Dose Admin Acetaminophen 650 mg 06/10/24 00:00 Acetaminophen 325 Mg Tablet PO 07/10/24 00:00 Q6HR PRN Fever >100.3 or pain Albuterol/Ipratropium 3 ml 06/09/24 20:26 Albuterol/Ipratropium (Duoneb) Rt Tabitha 3 Ml Nebu INH 07/09/24 20:25 Q2HR PRN SHORTNESS OF BREATH OR WHEEZE Atorvastatin Calcium 80 mg 06/10/24 21:00 Atorvastatin Calcium 20 Mg Tablet PO 07/10/24 20:59 HS DAVID Sodium Chloride 1,000 mls @ 100 mls/hr 06/09/24 18:00 06/10/24 03:59 Ns IV 06/10/24 13:59 100 mls/hr Q10H DAVID Administration Lorazepam 4 mg 06/10/24 00:03 Lorazepam 2 Mg/Ml Vial IVP 06/15/24 00:02 X1 PRN Seizure > 5 minutes Morphine Sulfate 2 mg 06/09/24 20:26 Morphine Sulf Inj 10 Mg/Ml Vial IVP 06/14/24 20:25 Q4H PRN PAIN SCALE 7-10 (Severe Ondansetron HCl 4 mg 06/09/24 17:52 Ondansetron Inj 2 Mg/Ml Inj 2 Ml IV 07/09/24 17:51 Q4HR PRN NAUSEA OR VOMITING Pantoprazole Sodium 40 mg 06/09/24 20:30 06/10/24 08:50 Pantoprazole Inj 40 Mg Vial IVP 07/09/24 20:29 40 mg QDAY DAVID Administration Sennosides 1 tab 06/10/24 09:00 06/10/24 08:50 Senna Tablet PO 07/10/24 08:59 1 tab QDAY DAVID Administration Protocol Valproic Acid 750 mg 06/10/24 09:00 06/10/24 08:50 Valproic Acid Syrup 250 Mg/5 Ml Udc PO 07/10/24 08:59 750 mg BID DAVID Administration Valproic Acid 750 mg 06/09/24 23:45 Valproic Acid Syrup 250 Mg/5 Ml Udc PO 07/09/24 23:44 X1 DAVID Plan 58-year-old male with past history of essential hypertension, hyperlipidemia, myocardial infarction 2016, LV thrombus 2020, left posterior temporal, 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 He follows up regularly with metal punch press operator Dr. Bonilla in [place] and neurologist Dr. Dennis. Patient presented today with a chief complaint of altered mental status and ptosis. Patient will be admitted for stroke rule out. #Acute encephalopathy #Stroke rule out Earlier today around 2 PM patient's mother states that she noticed left-sided weakness, facial droop and ptosis along with patient more confused than baseline asking about his father who 6 years ago. On exam patient had left-sided ptosis but otherwise to baseline according to his mother. He had complete right-sided hemianopia, dyslexia, agraphia and expressive aphasia at baseline. DDx: TIA, stroke, medication side effect, hemorrhage Head CT revealed subacute infarcts right basal ganglia unchanged. No acute hemorrhage or mass effect. Head CT again showed occlusion of the left internal carotid artery at the carotid bifurcation with no filling distally. Collateral filling of left MCA artery M1 segment and trifurcation vessels. MRI brain showed Smaller acute infarct in the right basal ganglia, 28 x 10 mm compared to 38 x 18mm on May 28, 2024. No definite new areas of infarction. A1C 5.6, Lipid panel nl, TSH nl - Aspiration precautions - on High intensity statin - Seizure precautions - Neuro checks q 4H - HOB> 30 degrees - PT/OT referrals placed - PRN Acetaminophen 650mg to avoid hyperthermia - Dr Dennis consulted, appreciate recommendations #Seizure Disorder On previous admission patient was diagnosed with seizure disorder and started on Depakote 750 Mg p.o. twice daily. Attempted to restart patient's home medication on this admission, however pharmacy declined to do so until a blood valproic acid level was obtained. Patient had EEG done on 05/29/24 findings include: This EEG is abnormal with localized slowing within the right temporal area suggestive of seizures. ? Valproic acid levels ordered ? To resume home dose once levels obtained and pharmacy agrees. ? Lorazepam 4 Mg IV x 1 as needed if any seizure-like activity > 5 minutes. #Essential hypertension #Hyperlipidemia #History of SD 2016 #History of LV thrombus 2020 On admission BP 137/98. Home medication lisinopril 20 Mg p.o. daily, nicardipine 20 Mg p.o. every 8 hourly, atorvastatin 80 Mg p.o. at bedtime, aspirin 81 Mg p.o. daily. Patient follows up with metal punch press operator Dr. Bonilla in [place]. - Resumed home medication atorvastatin 80 Mg p.o. at bedtime - Antihypertensives on hold in light of normotension/hypotension. - Antiplatelets and anticoagulation discontinued on previous admission due to hemorrhagic conversion of stroke #History of left posterior temporal, occipital and parietal ischemic stroke 2020 #History of left basal ganglia and left caudate ischemic stroke with hemorrhagic conversion 2020 #History of acute right basal ganglia hemorrhagic stroke April 2024 #Hemorrhagic conversion of right basal ganglia infarct May 2024 After the strokes patient had deficits including right-sided hemianopia, dyslexia, agraphia and expressive aphasia. However he was able to ambulate until recent stroke April 2024. Brain MRI completed on 03/29/2021 findings include: Large acute infarct left posterior temporal left occipital and left posterior parietal lobes, infarcts left basal ganglia and left caudate nucleus. Mass effect with effacement of left cerebral sulcal and mild shift of the frontal horns to the right. Of note 1 month ago 04/26/2024, patient had a hemorrhagic stroke and presented to [facility] emergency department. He was subsequently transferred to [facility] where he spent approximately 3 weeks hospitalized. He was intubated and mechanically ventilated in the ICU for 1 week while on nicardipine infusion. Patient also had a recent admission earlier this month from 05/27/2024 to 05/30/2024 for new onset seizures acute right basal ganglia infarct with hemorrhagic transformation. He was started on Depakote 750 Mg p.o. twice daily and all antiplatelet and anticoagulation treatment were discontinued due to hemorrhagic transformation of stroke. Head CT noncontrast completed on 04/26/2024 findings include: Acute appearing hemorrhage in the right basal ganglia 13 x 6 mm with surrounding mild edema. Since this recent stroke patient has not ambulated. However he has worked with physical therapy and can stand with assistance. Case discussed with my senior Dr. Irving PGY-[address] Gabriella Linn MD PGY-1 Disposition: Tele Fluids: None Feeding: Cardiac diet Thrombo prophylaxis: SCDs Gastric Ulcer prophylaxis: Pantoprazole CODE STATUS: DNR Attending Provider Attestation/Addendum Nesha Marinelli DO, attest that I was physically present for the chen portions of the service and evaluated the patient with the resident and I reviewed and discussed the case with the resident and agree with the resident's findings and plans of care as documented above Patient seen and evaluated this AM. Mother at bedside. Patient is confused about his current situation. Per mother, patient had been recovering from previous stroke and able ambulate from parking lot of SNF to his room. However, he was noted to have weakness on his left side since 2 days ago. Patient is noted to have a facial droop on the left as well. MRI was done this AM revealing Smaller acute infarct in the right basal ganglia, 28 x 10 mm compared to 38 x 18mm on May 28, 2024. There are no new areas of infarction noted. Suspect possible post-stroke recrudescence syndrome. Will f/u with neurology recommendations.
[2024-06-10] MEDS: ATORVASTATIN CALCIUM 20 MG TABLET 80 MG PO (20:49)
--- NOTE | 2024-06-10 22:30 | PD.NEUROPROG ---
Documentation for date of: 06/10/24 Subjective Subjective Interval history: Patient was seen in telemetry today with his mom at the bedside, there is some delay in response to questions, but much better than yesterday. He did not ambulate today. Tolerating oral diet well. Denies any headache or dizziness. Exam - Neurology Vital Signs Temp Pulse Resp BP Pulse Ox O2 Del Method O2 Flow Rate 98.0 F 79 18 113/79 95 Room Air 2 06/10/24 20:00 06/10/24 20:08 06/10/24 20:08 06/10/24 20:00 06/10/24 20:00 06/10/24 20:00 06/09/24 19:47 Narrative Exam GENERAL APPEARANCE: Well developed, well-nourished white male in no acute distress. HEENT:? Normocephalic, atraumatic, extraocular movements intact.? Pupils:? Equal reacting to light. NECK:? Supple, no JVD or bruits. CARDIOVASULAR:? Heart: S1, S2 heard, regular without S3-S4 or murmur no rubs or gallops. LUNGS/CHEST:? Clear to auscultation bilaterally.? No rails, rhonchi, or wheezing.? Normal inspection. ABDOMEN:? Soft, nontender, with normal bowel sounds.? No pulsatile masses.? No rebound, rigidity, or guarding.? Normal inspection and palpation. EXTREMITIES:? Normal inspection and palpation. No edema, clubbing or cyanosis. SKIN:? Warm and dry without rashes.? Normal inspection. MUSCULOSKELETAL:? No cervical, thoracic, lumbar or midline bony tenderness.? Normal inspection. NEURO: Awake, alert, oriented x2, able to move both upper and lower extremities purposefully and on commands..No pronator drift noted.? Deep tendon reflexes:? 2+ bilaterally symmetrical.? Plantar reflex:? Downgoing bilaterally.? Gait: not tested. No signs of meningeal irritation noted.? Rest of the exam: Limited secondary to aphasia PSYCHIATRIC: Mood and affect: Normal Objective Labs 06/11/24 05:12 06/11/24 05:12 Labs: Laboratory Results - last 24 hr 06/10/24 06/10/24 06/10/24 04:55 08:05 08:08 WBC 7.2 RBC 3.49 L Hgb 11.2 L Hct 32.8 L MCV 94 MCH 32.1 MCHC 34.1 RDW Std Deviation 42.5 Plt Count 150 D Neut % (Auto) 73 Lymph % (Auto) 13 [place] % (Auto) 12 Eos % (Auto) 1 Baso % (Auto) 1 Neut # (Auto) 5.2 Lymph # (Auto) 0.9 L [place] # (Auto) 0.9 H Eos # (Auto) 0.1 Baso # (Auto) 0.0 Immature Gran # (Auto) 0.02 H Absolute Nucleated RBC 0.00 Immature Gran % 0 Nucleated RBC % 0 Sodium 141 Potassium 3.5 Chloride 109 H Carbon Dioxide 24.5 Anion Gap 8 BUN 6 L Creatinine 0.6 Estim Creat Clear Calc 140.3 eGFR > 60 BUN/Creatinine Ratio 10 L Glucose [address] Glu mg/dL 114 Hemoglobin A1c 5.6 Calculated Osmolality 278 Calcium 7.3 L Corrected Calcium 8.0 L Phosphorus 3.3 Magnesium 1.6 Total Bilirubin 0.4 AST < 10 ALT < 7 L Alkaline Phosphatase 41 L D Total Protein 5.0 L Albumin 3.1 L D Globulin 1.9 L Albumin/Globulin Ratio 1.6 Triglycerides 63 Cholesterol 106 L LDL Cholesterol, Calc 65 HDL Cholesterol 28 L Cholesterol/HDL Ratio 3.8 L TSH 1.42 Ur Collection Type Clean Catch Urine Color Lt-Yellow Urine Clarity Clear Urine pH 7.0 Ur Specific [place] 1.016 Urine Protein Negative Urine Glucose (UA) Negative Urine Ketones Negative Urine Blood Negative Urine Nitrite Negative Urine Bilirubin Negative Urine Urobilinogen (Auto) Negative Ur Leukocyte Esterase Negative Urine RBC 1 Urine WBC 1 Ur Squamous Epith Cells 0 Urine Bacteria None Urine Opiates Screen Negative Urine Fentanyl Screen Negative Ur Barbiturates Screen Negative U Amphetamin/Meth Scrn Negative U Benzodiazepines Scrn Negative U Cocaine Metab Screen Negative U Marijuana (THC) Screen Positive A Assessment & Plan Assessment and plan (1) CVA (cerebral vascular accident): Status: Acute Assessment and plan: Based on the repeat CT today, hypodensity in the right basal ganglia with compression of frontal horn of the right lateral ventricle. Encephalomalacia in the left parietotemporal area, from stroke from 2020 MRI brain showed stable acute infarct in the right basal ganglia with old hemorrhage Echocardiogram: Negative bubble study. Suboptimal images due to patient being unstable. Normal LV size anetrior apical and inferior apical akineis with 2.1x1.5 cm MURAL THROMUS in the apex, Moderate LV dysfunction LVEF 35-40% Normal RV size and function Discontinue aspirin and Eliquis for now as the repeat CT showed mild hemorrhagic transformation in the right basal ganglia Patient's agreed for hospice care, potential transfer to rehab with hospice later this evening. (2) Altered mental status: Status: Acute Assessment and plan: Suspected nonconvulsive seizures: With his intermittent upward gaze and nonsensical speech EEG showed slowing in the right temporal area, started him on Depakote, which significantly improved his mental status and language function. (3) Hypertension: Status: Acute Assessment and plan: Continue with the permissive blood pressure control (4) Wernicke's aphasia: Status: Chronic Assessment and plan: Improved significantly from admission close to baseline Additional Assessment & Plan Additional Plan: (1) Recent CVA (cerebral vascular accident): Based on the repeat MRI brain: recent infarct right caudate nucleus and old hge in the right basal ganglia. Hold off on ASA, continue with statin and blood pressure control stable for d/c to SNF tomorrow. (2) Altered mental status: resolved: DD: TIA/SZ keep him on Depakote 750 mg twice a day 3) Hypertension: Continue with blood pressure control (4) Wernicke's aphasia: improving Residual deficit following stroke in 2020 and the bleed in April 2024.
[2024-06-11] VITALS: BP 118/79; PULSE 80; PULSE 83; RESP 12; TEMP 36.9; O2SAT 93
[2024-06-11 04:00] VITALS: BP 100/67; PULSE 74; PULSE 78; RESP 14; TEMP 36.6; O2SAT 93
[2024-06-11 05:52] VITALS: BMI 23.8
[2024-06-11 06:18] LABS: Basophils # (Auto) 0.1 Thou/mm3 (0.0-0.2); Basophils % (Auto) 1 % (0-2.5); Eosinophils # (Auto) 0.2 Thou/mm3 (0.0-0.5); Eosinophils % (Auto) 3 % (0-10); Hematocrit 35.1 % (41.0-53.0); Hemoglobin 12.4 g/dL (13.5-16.0); Immature Granulocytes % (Auto) 0 % (0-0); Immature Granulocytes Auto 0.02 Thou/mm3 (0.00-0.00); Lymphocytes # (Auto) 1.4 Thou/mm3 (1.0-4.8); Lymphocytes % (Auto) 19 % (10-50); Mean Corpuscular HGB Conc 35.3 g/dl (31.0-37.0); Mean Corpuscular Hemoglobin 32.5 pg (25.0-35.0); Mean Corpuscular Volume 92 fL (80-100); Monocytes # (Auto) 0.9 Thou/mm3 (0.0-0.8); Monocytes % (Auto) 12 % (0-12); Neutrophils # (Auto) 4.8 Thou/mm3 (1.8-7.7); Neutrophils % (Auto) 65 % (37-80); Nucleated Red Blood Cell % 0 /100 WBC (0); Platelet Count 175 Thou/mm3 (140-440); RDW Standard Deviation 41.1 fL (35.1-43.9); Red Blood Count 3.82 Miln/mm3 (4.50-5.90); White Blood Count 7.5 Thou/mm3 (3.8-10.6)
[2024-06-11 06:59] LABS: Alanine Aminotransferase 8 U/L (10-49); Albumin, Serum 3.6 gm/dL (3.5-5.0); Albumin/Globulin Ratio 1.6 (1.2-2.2); Alkaline Phosphatase 45 U/L (46-116); Anion Gap 10 (7-16); BUN/Creatinine Ratio 10 Ratio (12-20); Bilirubin,Total 0.5 mg/dL (0.3-1.2); Blood Urea Nitrogen 7 mg/dL (9-23); Calcium 8.6 mg/dL (8.3-10.6); Calcium (Corrected) 8.9 mg/dL (8.5-10.1); Carbon Dioxide 26.5 mMol/L (20.0-31.0); Chloride 103 mMol/L (98-107); Creatinine (Component) 0.7 mg/dL (0.6-1.3); Estimated Creatinine Clearance 120.2 mL/min (>60); Globulin 2.3 gm/dL (2.3-3.5); Glucose 99 mg/dL (74-106); Magnesium 1.7 mg/dL (1.6-2.6); Osmolality,Calculated 275 (275-295); Phosphorous 4.1 mg/dL (2.4-5.1); Potassium 3.8 mMol/L (3.4-5.1); Sodium 139 mMol/L (136-145); Total Protein 5.9 gm/dL (5.7-8.2); eGFR > 60 See Note
[2024-06-11 07:13] LABS: Aspartate Amino Transferase < 8 U/L (0-34)
[2024-06-11 08:00] VITALS: BP 96/74; PULSE 68; PULSE 71; RESP 17; TEMP 36.4; O2SAT 97
[2024-06-11] MEDS: PANTOPRAZOLE INJ 40 MG VIAL IVP (09:15)
[2024-06-11] MEDS: VALPROIC ACID SYRUP 250 MG/5 ML UDC 750 MG PO (09:15)
[2024-06-11] MEDS: SENNA TABLET 1 TAB PO (09:15)
--- NOTE | 2024-06-11 11:09 | PC.NURSE ---
Physical therapistOrly at bedside evaluating patient.
[2024-06-11 12:00] VITALS: BP 107/84; PULSE 79; PULSE 80; RESP 22; TEMP 36.2; O2SAT 95
--- NOTE | 2024-06-11 12:03 | ESDS_ITS ---
<Statement entered by Nesha Quiroz DO - 06/12/24 08:32> I, Nesha Quiroz DO, attest that I was physically present for the chen portions of the service and evaluated the patient with the resident and I reviewed and discussed the case with the resident and agree with the resident's findings and plans of care as documented above Planned Discharge Date 06/11/24 DS: Providers Provider Date of admission: 06/09/24 20:26 Primary care physician: Physician No Primary/Family Admitting Provider: Cecil Gamboa MD Attending Provider on Admission: Nesha Quiroz DO Consults: 06/09/24 17:52 Consult to Neurology / Tele-Neurology Routine Comment: Consulting Provider: [facility] 06/09/24 19:25 Consult to Neurology / Tele-Neurology Stat Comment: Consulting Provider: Rolf Dennis 06/09/24 20:31 Speech [Referral - FAMILY EDUCATOR Marriage Counselor] Routine Comment: 06/09/24 20:32 Referral Physical Therapy Urgent Comment: Physician Instructions: Attending Provider on DC: Nesha Quiroz DO Discharging Provider: Eduar Linn MD Anticipated date of discharge: 06/11/24 DS: Diagnosis Problem List Completed Was Problem List Reviewed/Reconciled?: Yes Hospital Course Hospital Course Hospital course: 58-year-old male with past history of essential hypertension, hyperlipidemia, myocardial infarction 2016, LV thrombus 2020, left posterior temporal, 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 He follows up regularly with mercantile agent Dr. Bonilla in [place] and neurologist Dr. Dennis. Patient presented today with a chief complaint of altered mental status and ptosis. Patient will be admitted for stroke work up. During Hospital stay patient was evaluated by Neurologist, Dr. Dennis and given the patients history of hemorrhagic strokes recommended not starting patient on aspirin and plavix and to just continue high intensity statin. Physical therapy was consulted and evaluated the patient, they recommended SNF placement. As part of the stroke work up MRI brain showed Smaller acute infarct in the right basal ganglia, 28 x 10 mm compared to 38 x 18mm on May 28, 2024. No definite new areas of infarction. During hospital admission patient's valproic acid was held until valproic acid levels were obtained, however after speaking to neurology they recommended resuming the medication for the patient's seizure disorder at the time of discharge. While admitted seizure disorder was managed with Ativan as needed. At this time patient is medically stable for discharge. Recommended to follow up with PCP within 1 week of discharge. Recommended to follow up with Neurologist, Dr. Dennis within 2 weeks of discharge. As patient has history of hemorrhagic conversion from prior strokes, patient is recommended to continue high intensity statin, no aspirin, no plavix at this time, per Neurology recommendations. If any symptoms recur or worsen patient instructed to return to the ED. 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 Gabriella Linn MD PGY-1 Status at Discharge Functional status at discharge: independent ambulation Overall status at discharge: patient is back to baseline Time Spent with Patient Time attestation: Total time spent providing and/or coordinating discharge services: Time spent: Greater than 30 minutes Exam Vital Signs Temp Pulse Resp BP Pulse Ox O2 Del Method O2 Flow Rate 97.6 F 68 17 96/74 97 Room Air 2 06/11/24 08:00 06/11/24 08:00 06/11/24 08:00 06/11/24 08:00 06/11/24 08:00 06/11/24 08:00 06/09/24 19:47 Narrative Exam Physical Exam GENERAL: NAD, AAOx1 person HEENT: Moist mucosa. eyes open CARDIO: Heart RRR, no obvious murmurs PULM: No noted coughing/dyspnea CTA B/L, no R/W/R GI: Abdomen soft, nondistended, no pain on palpation. BSx4 SKIN/MSK/EXT: No wounds/rashes/edema/amputations, no pain on palpation. Pedal pulses present B/L NEURO: able to move all 4 extremities Discharge Plan Plan Patient Disposition: Xfer Skilled Nsg Fac (SNF) Patient condition on transfer: Stable Care Plan Goals: Recommended to follow up with PCP within 1 week of discharge Recommended to follow up with Neurologist, Dr. Dennis within 2 weeks of discharge As patient has history of hemorrhagic conversion from prior strokes, patient is recommended to continue high intensity statin, no aspirin, no plavix at this time, per Neurology recommendations. If any symptoms recur and worsen patient instructed to return to the ED. Prescriptions/Referrals Prescriptions/Med Rec: New atorvastatin 20 mg Tablet 80 mg PO HS 30 Days Qty: 120 0RF Continued carvedilol 3.125 mg tablet 3.125 mg PO TID Patient Comments: TAKE 1 TABLET BY MOUTH TWICE A DAY WITH MEALS INSTRUCTIONS: DO NOT TAKE IF HEART RATE UNDER 60 divalproex 250 mg tablet extended release 24 hr 750 mg PO BID 30 Days Qty: 180 0RF acetaminophen 650 mg suppository 650 mg MT Q6H PRN (Reason: Fever) Patient Comments: UNWRAP AND INSERT 1 SUPPOSITORY (650MG) RECTALLY EVERY 6 HOURS NEEDED FOR FEVER bisacodyl 10 mg suppository 10 mg MT Q72H PRN (Reason: Constipation) Patient Comments: UNWRAP AND INSERT 1 SUPPOSITORY (10MG) RECTALLY EVERY 72 HOURS NEEDED FOR CONSTIPATION hyoscyamine sulfate [Hyosyne] 0.125 mg/mL drops 0.125 mg PO Q4H PRN (Reason: Secretions) Patient Comments: TAKE 1ML (0.125MG) UNDER THE TONGUE EVERY 4 HOURS NEEDED FOR EXCESS SECRETIONS sennosides [Senna Lax] 8.6 mg tablet 8.6 mg PO BID Discontinued morphine concentrate 100 mg/5 mL (20 mg/mL) solution 1 mg buccal Q1H PRN (Reason: Severe Pain (Scale Score 7-10)) Patient Comments: GIVE 0.25ML/5MG SUBLINGUALLY EVERY 4HR NEEDED FOR MILD PAIN, 0.5ML/10MG EVERY 4 HR FOR MODERATE PAIN, 1 ML/20MG EVERY 2 HOURS NEEDED F lorazepam [Lorazepam Intensol] 2 mg/mL concentrate 0.5 mg buccal Q6H PRN (Reason: Anxiety) Patient Comments: TAKE 0.25ML (0.5MG) UNDER THE TONGUE EVERY 6 HOURS NEEDED FOR ANXIETY Referrals: No Primary/Family,Physician [Primary Care Provider] - Patient/Caregiver Discharge Instructions Print Language: Swedish Stand Alone Forms: Shannan Award Info., Patient Portal Info Letter Discharge Order Discharge Orders: Discharge (Routine); Ordered 06/11/24 Ordered By: Eduar Linn Quality Discharge Quality Measures VTE prophylaxis
[2024-06-11 13:35] VITALS: BMI 11.0
--- NOTE | 2024-06-11 15:02 | PC.SS ---
Addendum entered by Rosenda Peacock 06/11/24 16:14: SS spoke to mom and provided dc options for to return with hospice under his managed medical or return to [place] with managed medical to work with PT. Mom is requesting pt return [facility] with [facility]. SS has sent hospice referral using [facility] to [place]. SS has setup transportation with Luz Maria from [facility] and requested [facility]. Luz Maria was able to accommodate [facility] as the transportation vendor for 7:30 pharmacy picking technician time. Ref# [id number]. Little from [facility] is aware. Sita Osborne from [facility] is aware. Nuria patient's mom is aware. Pt is aware. Bedside nurseAbigail is aware. Original Note: SS spoke to Little from [facility] who states she ran patient's Medicare and it's inactive. Little explained pt can return with Hospice Service and no insurance authorization is required but if pt returns without Hospice Services insurance authorization is required. SS called Amy from [facility] and cancelled transportation. Ref# [id number]. Amy has confirmed transport was cancelled. Bedside nursebAigail is aware.
[2024-06-11 16:00] VITALS: BP 105/69; PULSE 80; PULSE 82; RESP 20; TEMP 36.4; O2SAT 96
--- NOTE | 2024-06-11 18:12 | PC.NURSE ---
Telephone report given to ALBIN Matthews at [facility]. Patients mother is at bedside. Ambulance transport eta [phone].
--- NOTE | 2024-06-11 19:45 | PC.NURSE ---
1925 transportation here for patient, transferring to [facility] SNP, iv removed, advertising executive removed, pts mom at bedside, pt alert, awake, follows commands, disoriented to place and time. No distress noted.
--- NOTE | 2024-06-11 23:03 | PD.VPROG1 ---
Telemedicine visit statement This visit was conducted with the use of phone was obtained on 06/11/24 Documentation for date of: 06/11/24 Subjective Subjective Interval history: Patient is in telemetry. Continue to improvein his language and left-sided weakness. No witnessed tonic clonic convulsions reported. Virtual exam Vital Signs Temp Pulse Resp BP Pulse Ox O2 Del Method O2 Flow Rate 97.5 F 82 20 105/69 96 Room Air 2 06/11/24 16:00 06/11/24 16:00 06/11/24 16:00 06/11/24 16:00 06/11/24 16:00 06/11/24 16:00 06/09/24 19:47 Objective Labs 06/11/24 05:12 06/11/24 05:12 Labs: Laboratory Results - last 24 hr 06/11/24 05:12 WBC 7.5 RBC 3.82 L Hgb 12.4 L Hct 35.1 L MCV 92 MCH 32.5 MCHC 35.3 RDW Std Deviation 41.1 Plt Count 175 Neut % (Auto) 65 Lymph % (Auto) 19 [place] % (Auto) 12 Eos % (Auto) 3 Baso % (Auto) 1 Neut # (Auto) 4.8 Lymph # (Auto) 1.4 [place] # (Auto) 0.9 H Eos # (Auto) 0.2 Baso # (Auto) 0.1 Immature Gran # (Auto) 0.02 H Absolute Nucleated RBC 0.00 Immature Gran % 0 Nucleated RBC % 0 Sodium 139 Potassium 3.8 Chloride 103 Carbon Dioxide 26.5 Anion Gap 10 BUN 7 L Creatinine 0.7 Estim Creat Clear Calc 120.2 eGFR > 60 BUN/Creatinine Ratio 10 L Glucose 99 Calculated Osmolality 275 Calcium 8.6 Corrected Calcium 8.9 Phosphorus 4.1 Magnesium 1.7 Total Bilirubin 0.5 AST < 8 ALT 8 L Alkaline Phosphatase 45 L Total Protein 5.9 Albumin 3.6 D Globulin 2.3 Albumin/Globulin Ratio 1.6 Assessment & Plan Assessment (1) Recent CVA (cerebral vascular accident): Based on the repeat MRI brain: recent infarct right caudate nucleus and old hge in the right basal ganglia. Hold off on ASA, continue with statin and blood pressure control stable for d/c to SNF (2) Altered mental status: resolved: DD: TIA/SZ keep him on Depakote 750 mg twice a day 3) Hypertension: Continue with blood pressure control (4) Wernicke's aphasia: improving Residual deficit following stroke in 2020 and the bleed in April 2024.
== END 2024-06-11 19:25 | disposition skilled nursing facility (03) | DRG 65 ==
LOC: SERX 20:13 → SERHOLD 20:46 → S2NX 06-10 12:24
PROVIDERS: Admitting Provider Student in an Organized Health Care Education/Training Program; Emergency Provider Emergency Medicine; Visit Provider Internal Medicine
DX: I63.89 Other cerebral infarction (principal); I69.254 Hemiplegia and hemiparesis following other nontraumatic intracranial hemorrhage affecting left non-dominant side; G93.40 Encephalopathy, unspecified; R29.810 Facial weakness; I50.9 Heart failure, unspecified; R56.9 Unspecified convulsions; I11.0 Hypertensive heart disease with heart failure; R48.8 Other symbolic dysfunctions; E78.5 Hyperlipidemia, unspecified; I25.2 Old myocardial infarction; F80.2 Mixed receptive-expressive language disorder; E11.9 Type 2 diabetes mellitus without complications; I69.120 Aphasia following nontraumatic intracerebral hemorrhage; H53.461 Homonymous bilateral field defects, right side; I69.198 Other sequelae of nontraumatic intracerebral hemorrhage; I25.10 Atherosclerotic heart disease of native coronary artery without angina pectoris; I45.10 Unspecified right bundle-branch block; R29.707 NIHSS score 7; G89.29 Other chronic pain; Z66 Do not resuscitate; Z79.899 Other long term (current) drug therapy
CPT/HCPCS: 36415; 70450; 70496; 70498; 70544; 80053; 80061; 80164; 80307; 81001; 83036; 83735; 84100; 84443; 84484; 85025; 85610; 85730; 87081; 87086; 92526; 92610; 93005; 96360; 96361; 96374; 97162; 99285; A4649; J2470; J7030; Q9967; A9270

== ENCOUNTER 2024-06-14 23:02 | Emergency (ER) | payer MEDICARE, MEDICAID, SELFPAY ==
[2024-06-14 23:05] VITALS: BP 155/101; PULSE 94; RESP 18; TEMP 36.9; O2SAT 98
--- NOTE | 2024-06-14 23:25 | PD.EDRME ---
Rapid Medical Screening Exam RME Arrival date/time: 06/14/24 23:02 Chief Complaint: Fall Time Seen by Provider: 06/14/24 23:25 Vital signs: Vital Signs Temperature 98.5 F 06/14/24 23:05 Pulse Rate 94 06/14/24 23:05 Respiratory Rate 18 06/14/24 23:05 Blood Pressure 155/101 H 06/14/24 23:05 Pulse Oximetry (%) 98 06/14/24 23:05 Oxygen Delivery Method Room Air 06/14/24 23:05 Vital signs reviewed by provider: Yes RME Narrative: 58-year-old male coming in with high cholesterol, hypertension, mechanical fall. Patient is not on blood thinners.
--- NOTE | 2024-06-14 23:28 | XR_ITS ---
Examination: CT brain head without contrast. 2-D sagittal coronal reconstructions Date and time of exam:June 14, 2024 2349 hours Comparison June 09, 2024 INDICATIONS: Patient fell today with injury to back of head scalp laceration 2 hours ago CTDI: vol (mGy):54.2 DLP: (mGycm):1115 Technique: Multiple CT axial sections of the brain have been obtained, 5 mm slice thickness. Contrast has not been administered. 2-D sagittal, coronal reconstructions have been obtained Low dose protocols were performed. One or more of the following dose reduction techniques were used; automated exposure control, adjustment of the mA and/or KV according to patient size, use of iterative reconstruction technique. Findings: No significant ventricular enlargement. Old infarct right frontal lobe posterior left occipital lobe. Infarctions right basal ganglia again are subacute, please see the brain MRI report June 10, 2024 Intra-axial or extra-axial hemorrhage density is not seen. No mass effect or midline shift Basal cisterns are not remarkable. Fourth ventricle is midline. Cranial vault intact. Impression: No interval acute hemorrhage, mass effect or midline shift Consider repeating the brain MRI follow-up, stroke protocol to compare with June 10, 2024
--- NOTE | 2024-06-14 23:29 | XR_ITS ---
Examination: CT cervical spine without contrast 2-D sagittal reconstructions 2-D coronal reconstructions 3-D reconstructions. Exam date and time:June 14, 2019 problem 49 hours INDICATIONS: Patient fell today with injury to the neck, neck pain CTDI:vol (mGy) 7.59 DLP: (mGycm) 174 Technique: Multiple 2 mm axial sections of the cervical spine have been obtained. The coronal and sagittal reconstructions have been obtained. 3-D reconstructions have been obtained. Low dose protocols were performed. One or more of the following dose reduction techniques were used; automated exposure control, adjustment of the mA and/or KV according to patient size, use of iterative reconstruction technique. Findings: Axial sections demonstrate intact base of the skull. C1 exhibit satisfactory relationship to the odontoid. No acute cervical vertebral body fracture seen. Alignment posterior spinous processes satisfactory. Impression: No acute cervical fracture.
[2024-06-14 23:31] VITALS: BMI 20.1
--- NOTE | 2024-06-15 00:25 | EDNOTE_ITS ---
ED Fall Injury RME/HPI General Chief Complaint: Fall Stated Complaint: FALL Time Seen by Provider: 06/14/24 23:25 Arrival date/time: 06/14/24 23:02 Limitations: no limitations RME / HPI RME / HPI Narrative: 58-year-old male coming in with high cholesterol, hypertension, mechanical fall. Patient is not on blood thinners. ----- Dr. Quezada's Main ED Evaluation: 58yo male with pmhx CVA, HTN, HLD BIBA from [facility] presents to the ED for a fall. Caregiver at bedside states the patient fell from his wheelchair and was found on the floor with a laceration to his head. Unknown LOC. Patient denies any neck pain, chest pain, abdominal pain, shortness of breath or any other associated symptoms. No known allergies. Related Data Home Medications ?Medication ?Instructions ?Recorded ?Confirmed carvedilol 3.125 mg tablet 3.125 mg PO TID 05/28/24 06/09/24 acetaminophen 650 mg rectal 650 mg FL Q6H PRN Fever 06/09/24 06/09/24 suppository bisacodyl 10 mg rectal suppository 10 mg FL Q72H PRN Constipation 06/09/24 06/09/24 hyoscyamine sulfate 0.125 mg/mL 0.125 mg PO Q4H PRN Secretions 06/09/24 06/09/24 oral drops (Hyosyne) sennosides 8.6 mg tablet (Senna 8.6 mg PO BID 06/09/24 06/09/24 Lax) Previous Rx's ?Medication ?Instructions ?Recorded divalproex 250 mg tablet,extended 750 mg (3 x 250 mg) PO BID 30 days 05/30/24 release 24 hr #180 tabs atorvastatin 20 mg tablet 80 mg (4 x 20 mg) PO HS 30 days 06/11/24 #120 tabs Allergies Allergy/AdvReac Type Severity Reaction Status Date / Time No Known Allergies Allergy Unverified 06/09/24 18:44 Review of Systems Review of Systems Systems Reviewed: All systems reviewed, normal except as documented ED Exam General Limitations: Present no limitations General appearance: Present alert, in no apparent distress and other (talking in full sentences) Head Head exam: Present other (small superficial star-shaped laceration to the left parietal scalp area, bleeding is controlled, no step-off) Eye Eye exam: Present normal appearance, PERRL and EOMI ENT ENT exam: Present normal exam, normal oropharynx and mucous membranes moist Neck Neck exam: Present normal inspection, full ROM and trachea midline Chest Chest inspection: Present normal inspection and symmetric chest wall rise Respiratory Respiratory exam: Present normal lung sounds bilaterally Cardiovascular Cardiovascular exam: Present regular rate, normal rhythm and normal heart sounds Abdominal Exam Abdominal exam: Present soft and normal bowel sounds Extremities Exam Extremities exam: Present normal inspection and full ROM Back Exam Back exam: Present normal inspection, full ROM and other (no midline tenderness) Neurological Exam Neurological exam: Present alert, oriented X3, CN II-XII intact and other (no facial droop) Psychiatric Psychiatric exam: Present normal affect and normal mood Skin Skin exam: Present warm, dry, intact and normal color Course Quality Measures none Orders Category Date Time Status Irrigate Wound NOW Care 06/14/24 23:[address] cervical spine wo con Stat Exams 06/14/24 23:[address] head/brain wo con Stat Exams 06/14/24 23:28 Taken Vital Signs Vital signs: Vital Signs Temperature 98.5 F 06/14/24 23:05 Pulse Rate 94 06/14/24 23:05 Respiratory Rate 18 06/14/24 23:05 Blood Pressure 155/101 H 06/14/24 23:05 Pulse Oximetry (%) 98 06/14/24 23:05 Oxygen Delivery Method Room Air 06/14/24 23:05 Pulse ox is 98% on room air, which is normal according to my interpretation. Procedures -ED Procedure Comment Laceration at the left parietal area irrigated. Placed 4 pritesh. Patient tolerated the procedure well. Fall Patient data External records reviewed:: [facility] previous records (Per chart review, patient was admitted here on 06/09/24 for CVA.) Clinical information provided by:: patient and telephone surveyor Social determinants that could affect healthcare access:: housing (Pt resides in a SNF.) Patient has the following chronic illnesses:: CVA, HTN, HLD How is presenting disease/condition affected by chronic disease/condition?: uneffected by Evaluation data The following diagnostics were reviewed and interpreted by me:: radiology exam(s) Lab and/or radiology exams considered but not ordered:: none Interpretation Summary: [facility] Preliminary Report Draft Patient: MIMA MCCORMICK [facility] Record#: [id number] Birthdate: 1965 Age/Sex: 58 / M Location: [facility] Attending Dr: Ordering Physician: Date of Service: Procedure(s): Accession Number(s): cc: ~ CT scan of the cervical spine without intravenous contrast (axial sections with sagittal and coronal reformats). June 14, 2024 at 2349 hours Clinical History: Status post fall, scalp laceration. Comparison: No prior study is available for comparison. Findings: There is no fracture or subluxation. The prevertebral soft tissues are unremarkable. Degenerative changes of the cervical spine. Vascular calcification. Impression: No evidence of fracture or subluxation. Report Electronically Signed By: Alirio Garcia 06/15/2024 12:57:43 AM [EST] [facility] Preliminary Report Draft Patient: MIMA MCCORMICK [facility]. Record#: [id number] Birthdate: 1965 Age/Sex: 58 / M Location: [facility] Attending Dr: Ordering Physician: Date of Service: Procedure(s): Accession Number(s): cc: ~ CT scan of the head without intravenous contrast (axial sections with sagittal and coronal reformats). June 14, 2024 at 2349 hours Clinical History: Status post fall with scalp laceration Comparison: No prior study is available for comparison. Findings: Area of encephalomalacia in the right frontal lobe consistent with chronic infarct in the territory of the right MCA. 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 Hypodense area in the right basal ganglia consistent with lacunar infarct of indeterminate age. There is no evidence of intracranial hemorrhage, mass effect or midline shift. There is moderate volume loss. The calvarium is intact. The mastoid air cells and the visualized paranasal sinuses are clear. Impression: 1. Hypodense area in the right basal ganglia consistent with lacunar infarct of indeterminate age. Correlation with MRI and/or CTA is recommended. 2. No evidence of intracranial hemorrhage, midline shift or calvarial fracture 3. Moderate volume loss. Aspect score 9. Discussion Details: Results verbally communicated to : Dr. Quezada at 01:06 AM 06/15/2024 Report Electronically Signed By: Alirio Garcia 06/15/2024 1:09:10 AM [EST] Medications / Prescriptions Medications or Prescriptions considered but not ordered:: none Medication administrations:: see above, if any Consultations Consultation(s) initiated? (list below): No Diagnosis Fall Differential Diagnosis: other (ICH, fracture, contusion, mechanical fall, laceration, dementia) Most likely diagnosis given after review of the tests above:: see below Admission Indicated Admission indicated?: not indicated Admission Request Was there a request for admission?: No Disposition Plan Disposition Plan: Discharge Discharge Attestation Discharge Attestation: The patient and all family members were given an opportunity to ask questions and understood the discharge instructions. Discharge instructions specifically effects, indications for sooner follow up or return to the emergency department, and the expected course of current diagnosis. Patient condition: Stable Discharge Plan Plan Patient Disposition: Xfer Skilled Nsg Fac (SNF) Patient condition on transfer: Stable Prescriptions/Referrals Prescriptions/Med Rec: No Action carvedilol 3.125 mg tablet 3.125 mg PO TID Patient Comments: TAKE 1 TABLET BY MOUTH TWICE A DAY WITH MEALS INSTRUCTIONS: DO NOT TAKE IF HEART RATE UNDER 60 divalproex 250 mg tablet extended release 24 hr 750 mg PO BID 30 Days Qty: 180 0RF acetaminophen 650 mg suppository 650 mg FL Q6H PRN (Reason: Fever) Patient Comments: UNWRAP AND INSERT 1 SUPPOSITORY (650MG) RECTALLY EVERY 6 HOURS NEEDED FOR FEVER bisacodyl 10 mg suppository 10 mg FL Q72H PRN (Reason: Constipation) Patient Comments: UNWRAP AND INSERT 1 SUPPOSITORY (10MG) RECTALLY EVERY 72 HOURS NEEDED FOR CONSTIPATION hyoscyamine sulfate [Hyosyne] 0.125 mg/mL drops 0.125 mg PO Q4H PRN (Reason: Secretions) Patient Comments: TAKE 1ML (0.125MG) UNDER THE TONGUE EVERY 4 HOURS NEEDED FOR EXCESS SECRETIONS sennosides [Senna Lax] 8.6 mg tablet 8.6 mg PO BID atorvastatin 20 mg Tablet 80 mg PO HS 30 Days Qty: 120 0RF Problem List Clinical Impression: Fall, Laceration Patient/Caregiver Discharge Instructions Education Materials: ED Laceration Scalp Sutr Stap Ch Additional Instructions: 1. Please do not get the scalp laceration area wet tonight. You can just use water around in the next 24 hours. The pritesh need to be removed in the next 10 days. 2. See your primary care and/or provider in the next 48 hours for recheck. 3. Return sooner to the emergency department for any worsening symptoms, confusion, you feel like he is not at his baseline, or any other concerns Print Language: Romansh Stand Alone Forms: [facility]ann[facility] Award Info., Patient Portal Info Letter
--- NOTE | 2024-06-15 00:58 | PRELIM_ITS ---
CT scan of the cervical spine without intravenous contrast (axial sections with sagittal and coronal reformats). June 14, 2024 at 2349 hours Clinical History: Status post fall, scalp laceration.Panchito rison: No prior study is available for comparison. Findings:There is no fracture or subluxation. The prevertebral soft tissues are unremarkable.Degenerative changes of the cervical spine. Vascular calci fication.Impression:No evidence of fracture or subluxation. Report Electronically Signed By: Alirio Garcia 06/15/2024 12:57:43 AM [EST]
[2024-06-15 01:08] VITALS: BP 128/80; PULSE 87; RESP 17; TEMP 36.8; O2SAT 97
--- NOTE | 2024-06-15 01:09 | PRELIM_ITS ---
CT scan of the head without intravenous contrast (axial sections with sagittal and coronal reformats) . June 14, 2024 at 2349 hoursClinical History: Status post fall with scalp lacerationComparison: N o prior study is available for comparison. 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 There is no evidence of intracranial hemorrhage, mass effect or midline shift. There is moderat e volume loss. The calvarium is intact.The mastoid air cells and the visualized paranasal sinuses are clear.Impression:1. Hypodense area in the right basal ganglia consistent with lacunar infarct of ind eterminate age. Correlation with MRI and/or CTA is recommended.2. No evidence of intracranial hemorrh age, midline shift or calvarial fracture3. Moderate volume loss.Aspect score 9.Discussion Details: R anselmo verbally communicated to : Dr. Quezada at 01:06 AM 06/15/2024 Report Electronically Signed By : Alirio Garcia 06/15/2024 1:09:10 AM [EST]
--- NOTE | 2024-06-15 02:02 | PC.NURSE ---
REPORT CALLED AND GIVEN TO NURSE TORO AT [facility].
[2024-06-15 02:03] VITALS: BP 127/87; PULSE 87; RESP 16; TEMP 37.2; O2SAT 98
== END 2024-06-15 02:05 | disposition skilled nursing facility (03) ==
LOC: SERX 06-15 02:56
PROVIDERS: Emergency Provider Emergency Medicine; PCP Hospitalist
DX: S01.01XA Laceration without foreign body of scalp, initial encounter (principal); W05.0XXA Fall from non-moving wheelchair, initial encounter; Y92.129 Unspecified place in nursing home as the place of occurrence of the external cause; I10 Essential (primary) hypertension; E78.5 Hyperlipidemia, unspecified; Z86.73 Personal history of transient ischemic attack (TIA), and cerebral infarction without residual deficits
CPT/HCPCS: 12001; 70450; 72125; 99284